=== PATIENT | female | born 1940 | race Caucasian/White ===

== ENCOUNTER 2018-09-05 09:36 | Outpatient (RCR) | payer MEDICARE, OTHER ==
[~2018-09-05 09:36] MED LIST: ALBU8.5H2 IH; AMLO10TA7 PO; AMLO10TA82 PO; AZEL137S11 NS; BENZ-36 PO; BUDE6HFA IH; CEFD300C3 PO; CEFP250T2 PO; CLIN150C2 PO; COMMODE; CYCL10TA9 PO; DEXL60CA PO; DOXY100C2 PO; FURO20TA4 PO; FURO40TA4 PO; HYDROCODONE; KCL20TCR PO; LEVO5TAB12 PO; LEVO5TAB2 PO; LISI10TA2 PO; LISI20TA PO; LOSA25TA5 PO; LSNP20T PO; METF-380 PO; METF-397 PO; METO-272 PO; MNTL10T PO; MONT10TA24 PO; MTP50T PO; NF-ESOM40C PO; NS.65NA45; NST15PW TOP; OMEP20CA12 PO; ORPH100T PO; OXYC-465 PO; OXYC10TA7 PO; PRCD5U PO; PRD10T PO; PRD20T PO; SOLI10TA2 PO; SUMA50TA2 PO; TRIAMCINOLON 0.1%
== END 2018-09-05 11:37 | disposition home or self-care (01) ==
PROVIDERS: ATTEND Nurse Practitioner Community Health
DX: S16.1XXA Strain of muscle, fascia and tendon at neck level, initial encounter (principal); V43.52XD Car driver injured in collision with other type car in traffic accident, subsequent encounter

== ENCOUNTER 2018-12-03 08:20 | Outpatient (RCR) | payer OTHER | END 2018-12-03 11:52 | disposition home or self-care (01) | PROVIDERS: ATTEND Nurse Practitioner Community Health | DX: M54.2 Cervicalgia (principal); V43.52XD Car driver injured in collision with other type car in traffic accident, subsequent encounter ==

== ENCOUNTER 2019-06-15 10:48 | Inpatient (IN) | payer MEDICARE, OTHER ==
[2019-06-15] VITALS (11 sets, daily range): BP systolic 104–141; BP diastolic 67–94
[~2019-06-15] VITALS: Ht 152 cm; Wt 156.3 kg
[2019-06-15 11:12] LABS: BASOPHILS % (AUTO) 0 % (0-10); EOSINOPHILS # (AUTO) 0.2 10^3/uL (0.0-0.3); EOSINOPHILS % (AUTO) 2 % (0-10); HEMATOCRIT 38 % (35-52); HEMOGLOBIN 12.3 G/DL (11.5-16.0); LYMPHOCYTES # (AUTO) 2.1 X 10^3 (1.0-4.0); LYMPHOCYTES % (AUTO) 25 % (12-44); MEAN CORPUSCULAR HEMOGLOBIN 32 PG (25-34); MEAN CORPUSCULAR HGB CONC 33 G/DL (32-36); MEAN CORPUSCULAR VOLUME 99 FL (80-99); MEAN PLATELET VOLUME 9.5 FL (7.4-10.4); MONOCYTES # (AUTO) 0.7 X 10^3 (0.0-1.0); MONOCYTES % (AUTO) 9 % (0-12); NEUTROPHILS # (AUTO) 5.4 X 10^3 (1.8-7.8); NEUTROPHILS % (AUTO) 64 % (42-75); PLATELET COUNT 336 10^3/uL (130-400); RED CELL DISTRIBUTION WIDTH 13.8 % (10.0-14.5); WHITE BLOOD COUNT 8.4 10^3/uL (4.3-11.0)
--- NOTE | 2019-06-15 11:13 | ED Cardiac General ---
History of Present Illness General Chief Complaint: Cardiac/General Problems Stated Complaint: RAPID HEART BEAT Source: patient Exam Limitations: no limitations History of Present Illness Date Seen by Provider: Jun 15, 2019 Time Seen by Provider: 10:55 Initial Comments The patient presents to ER by private conveyance walking in from her doctor's office Ria Mayer. She was told then that reason she was feeling weak was because her heart rate was extremely fast. She does not have a history of atrial fibrillation and denies being on blood thinners. She has no history of coronary disease and does not follow with her heart doctor. She does have chronic lymphedema and they did initiate wraps on her right lower extremity recently. She denies any wheezing or shortness of breath but she does have a history of asthma for which she uses albuterol inhaler. She's not used any today. She says she's been feeling weak for the past day. She denies a cough fever chills chest pain nausea sweats diarrhea or abdominal pain. She does not smoke cigarettes drink alcohol or use drugs. She is diabetic. Allergies and Home Medications Allergies Coded Allergies: penicillin G (Verified Allergy, Unknown, 07/08/06) Home Medications Albuterol 8.5 Gm Hfa.aer.ad, 2 PUFF IH Q6H PRN, (Reported) 2 PUFFS Amlodipine Besylate 10 Mg Tablet, 10 MG PO DAILY, (Reported) Benzonatate 100 Mg Capsule, 100 MG PO Q8H, (Reported) Budesonide/Formoterol Fumarate 1 Inhaler Aero, 1 PUFF IH BID, (Reported) Cefdinir 300 Mg Capsule, 300 MG PO DAILY, (Reported) Dexlansoprazole 60 Mg Handy.bp, 60 MG PO DAILY, (Reported) Furosemide 40 Mg Tablet, 1 EACH PO DAILY Prescribed by: CARLOS HAIDER on 09/26/13 8695 Levocetirizine Dihydrochloride 5 Mg Tablet, 5 MG PO DAILY, (Reported) Lisinopril 10 Mg Tablet, 5 MG PO DAILY, (Reported) Metformin HCl 500 Mg Tablet, 500 MG PO DAILY, (Reported) Montelukast Sodium 10 Mg Tablet, 10 MG PO DAILY, (Reported) Omeprazole 20 Mg Capsule.dr, 20 MG PO DAILY, (Reported) Orphenadrine Citrate 100 Mg Tablet.sa, 100 MG PO DAILY, (Reported) Oxycodone HCl/Acetaminophen 1 Each Tablet, 1 EACH PO Q4H, (Reported) Prednisone 10 Mg Tab, 1 TAB PO TID, (Reported) Solifenacin Succinate 10 Mg Tablet, 10 MG PO DAILY, (Reported) Sumatriptan Succinate 50 Mg Tablet, 50 MG PO DAILY, (Reported) Patient Home Medication List Home Medication List Reviewed: Yes Review of Systems Review of Systems Constitutional: No chills, No fever; malaise EENTM: No Blurred Vision, No Double Vision Respiratory: Denies Cough, Denies Shortness of Air Cardiovascular: Denies Chest Pain; Edema, Irregular Heart Rate; Denies Lightheadedness Gastrointestinal: See HPI; Denies Abdominal Pain, Denies Constipated, Denies Diarrhea, Denies Nausea Genitourinary: Denies Burning, Denies Discharge Musculoskeletal: No back pain, No joint pain All Other Systems Reviewed Negative Unless Noted: Yes Past Zjlrbwt-Hrxiwd-Cvjsog Hx Patient Social History Alcohol Use: Denies Use Recreational Drug Use: No Smoking Status: Never a Smoker Recent Hopitalizations: Yes (GB REMOVED ABCESS REMOVED FROM STOMACH) Immunizations Up To Date Date of Pneumonia Vaccine: Jul 07, 2014 Date of Influenza Vaccine: Apr 08, 2014 Seasonal Allergies Seasonal Allergies: Yes Past Medical History Surgeries: Yes (RT HAND, L TKR ) Appendectomy, Gallbladder, Orthopedic Respiratory: Yes Asthma, Pneumonia, COPD Cardiac: Yes Chronic Edema/Swelling, High Cholesterol, Hypertension Neurological: No Reproductive Disorders: No Gastrointestinal: Yes Gall Bladder Disease Musculoskeletal: Yes Arthritis Endocrine: No ("PRE-DIABETIC") Cancer: No Psychosocial: No Integumentary: Yes (LOWER LEGS/FEET) Blood Disorders: No Physical Exam Vital Signs Vital Signs - First Documented 06/15/19 06/15/19 10:55 11:42 Temp 36.5 Pulse 137 Resp 20 B/P (MAP) 143/105 (118) Pulse Ox 96 O2 Delivery Room Air O2 Flow Rate 2.00 Capillary Refill : Height, Weight, BMI Height: 5'0" Weight: 335lbs. 7.0oz. 152.370254hi; BMI Method:Stated General Appearance: No Anxious; Mild Distress, Obese HEENT: PERRL/EOMI, Pharynx Normal, Moist Mucous Membranes Neck: Full Range of Motion, Normal Inspection, Non Tender Respiratory: Lungs Clear, Normal Breath Sounds, No Accessory Muscle Use, No Respiratory Distress Cardiovascular: No Edema, Normal Peripheral Pulses, Irregularly Irregular, Tachycardia Gastrointestinal: Normal Bowel Sounds, Non Tender, Soft Extremity: Normal Capillary Refill, No Calf Tenderness, Other (chronic bilateral lower lymphedema) Neurologic/Psychiatric: Alert, Oriented x3 Progress/Results/Core Measures Results/Orders Lab Results Laboratory Tests Test 06/15/19 11:04 06/15/19 11:17 Range/Units White Blood Count 8.4 4.3-11.0 10^3/uL Red Blood Count 3.81 L 4.35-5.85 10^6/uL Hemoglobin 12.3 11.5-16.0 G/DL Hematocrit 38 35-52 % Mean Corpuscular Volume 99 80-99 FL Mean Corpuscular Hemoglobin 32 25-34 PG Mean Corpuscular Hemoglobin Concent 33 32-36 G/DL Red Cell Distribution Width 13.8 10.0-14.5 % Platelet Count 336 130-400 10^3/uL Mean Platelet Volume 9.5 7.4-10.4 FL Neutrophils (%) (Auto) 64 42-75 % Lymphocytes (%) (Auto) 25 12-44 % Monocytes (%) (Auto) 9 0-12 % Eosinophils (%) (Auto) 2 0-10 % Basophils (%) (Auto) 0 0-10 % Neutrophils # (Auto) 5.4 1.8-7.8 X 10^3 Lymphocytes # (Auto) 2.1 1.0-4.0 X 10^3 Monocytes # (Auto) 0.7 0.0-1.0 X 10^3 Eosinophils # (Auto) 0.2 0.0-0.3 10^3/uL Basophils # (Auto) 0.0 0.0-0.1 10^3/uL Sodium Level 143 135-145 MMOL/L Potassium Level 3.7 3.6-5.0 MMOL/L Chloride Level 103 98-107 MMOL/L Carbon Dioxide Level 28 21-32 MMOL/L Anion Gap 12 5-14 MMOL/L Blood Urea Nitrogen 15 7-18 MG/DL Creatinine 1.37 H 0.60-1.30 MG/DL Estimat Glomerular Filtration Rate 37 BUN/Creatinine Ratio 11 Glucose Level 116 H 70-105 MG/DL Calcium Level 9.4 8.5-10.1 MG/DL Corrected Calcium 9.2 8.5-10.1 MG/DL Total Bilirubin 0.4 0.1-1.0 MG/DL Aspartate Amino Transf (AST/SGOT) 37 H 5-34 U/L Alanine Aminotransferase (ALT/SGPT) 14 0-55 U/L Alkaline Phosphatase 121 40-136 U/L Troponin I < 0.028 <0.028 NG/ML B-Type Natriuretic Peptide 239.9 H <100.0 PG/ML Total Protein 8.4 H 6.4-8.2 GM/DL Albumin 4.2 3.2-4.5 GM/DL Urine Color YELLOW Urine Clarity CLEAR Urine pH 5.5 5-9 Urine Specific [place] 1.010 L 1.016-1.022 Urine Protein NEGATIVE NEGATIVE Urine Glucose (UA) NEGATIVE NEGATIVE Urine Ketones NEGATIVE NEGATIVE Urine Nitrite NEGATIVE NEGATIVE Urine Bilirubin NEGATIVE NEGATIVE Urine Urobilinogen 0.2 < = 1.0 MG/DL Urine Leukocyte Esterase TRACE NEGATIVE Urine RBC (Auto) NEGATIVE NEGATIVE Urine RBC NONE /HPF Urine WBC 2-5 /HPF Urine Squamous Epithelial Cells NONE /HPF Urine Crystals NONE /LPF Urine Bacteria TRACE /HPF Urine Casts NONE /LPF Urine Mucus NEGATIVE /LPF Urine Culture Indicated YES My Orders Orders - LIZETH GRADY Ekg Tracing (06/15/19 10:51) Continuous Ekg Monitoring (06/15/19 10:51) Chest 1 View, Ap/Pa Only (06/15/19 11:03) Ed Iv/Invasive Line Start (06/15/19 11:03) Catheter(Urinary) Insert & Ass 03,15 (06/15/19 11:03) Cbc With Automated Diff (06/15/19 11:03) Comprehensive Metabolic Panel (06/15/19 11:03) BNP (06/15/19 11:03) Troponin I (06/15/19 11:03) Ns (Ivpb) (Sodium C... W/Diltiazem Iv Fo (06/15/19 11:15) Diltiazem Injection (Cardizem Injection) (06/15/19 11:15) Ua Culture If Indicated (06/15/19 11:03) Urine Culture (06/15/19 11:17) Enoxaparin Injection (Lovenox Injection) (06/15/19 14:15) Medications Given in ED Current Medications Medications Dose Ordered Sig/Lavinia Route Start Time Stop Time Status Last Admin Dose Admin Diltiazem HCl 20 mg ONCE ONCE IVP 06/15/19 11:15 06/15/19 11:16 DC 06/15/19 11:39 20 MG Vital Signs/I&O 06/15/19 06/15/19 10:55 11:42 Temp 36.5 36.50086 Pulse 137 122 Resp 20 14 B/P (MAP) 143/105 (118) 150/102 Pulse Ox 96 97 O2 Delivery Room Air Nasal Cannula O2 Flow Rate 2.00 Progress Progress Note : Time: 11:10 Progress Note She has a rapid irregular heart rate consistent with atrial fibrillation with rapid ventricular response. She has a good blood pressure initially 146/96. Plan is to obtain labs to include a BNP and give her Cardizem. She's not having any wheezing or signs of asthma attack. Her oxygen sat is been in the mid 90s when we get a good waveform around 94%. Occasionally when she would exert herself she would desat down to 89% so we put her on 2 L by nasal cannula and this is kept her oxygen sats 95-98%. She does not use supplemental oxygen at baseline. Initial ECG Impression Date: Jun 15, 2019 Initial ECG Impression Time: 10:59 Initial ECG Rate: 132 Initial ECG Rhythm: A Fib/Flutter Initial ECG Intervals: QT (415) Initial ECG Impression: Atrial Fibrillation w/RVR Comment Atrial fibrillation with rapid ventricular response and no credible ST elevation or depression noted. Diagnostic Imaging Diagonstic Imaging: Xray Plain Films/CT/US/NM/MRI: chest (1 v) Comments [facility]. POS [place], [place] POS NAME: ELINOR PAIGE [facility] REC#: [id number] PT STATUS: REG ER : 1940 PHYSICIAN: LIZETH GRADY MD ADMIT DATE: 06/15/19/ER Draft POSDate of Exam:06/15/19 CHEST 1 VIEW, AP/PA ONLY INDICATION: Tachycardia, palpitations, fatigue and fluid retention. Study compared to 10/01/2014. The heart is enlarged. There is mild vascular congestion but no pulmonary edema, pleural fluid or focal pneumonia. IMPRESSION: No real change in magnitude of cardiomegaly and vascular congestion. No pleural fluid or jose edema. Dictated on workstation # [id number] Dict: 06/15/19 1142 Trans: 06/15/19 1145 [facility] [id number] Interpreted by: JOAO NEWMAN Electronically signed by: Reviewed: Reviewed by Me Departure Communication (Admissions) Time/Spoke to Admitting Phy: 14:27 Discussed case lab imaging findings with Dr. Woo and she agrees to observe the patient. Time/Spoke to Consulting Phy: 14:00 Discussed case lab imaging findings EKG with Dr. Moran [facility]. Impression Primary Impression: Atrial fibrillation with rapid ventricular response Disposition: ADMITTED INPATIENT Condition: Critical Admissions Decision to Admit Reason: Admit from ER (General) Decision to Admit/Date: Jun 15, 2019 Time/Decision to Admit Time: 14:00 Departure-Patient Inst. Referrals: RIA MAYER (PCP) Primary Care Physician [facility] (Family) Primary Care Physician LIZETH GRADY Jun 15, 2019 11:13 POS
[2019-06-15] MEDS ORDERED: DILTIAZEM IV FOR DRIP 125 MG in NS (IVPB) 100 ML IV SCH (11:15)
[2019-06-15] MEDS ORDERED: DILTIAZEM 25 MG/5 ML INJ (CARDIZEM) VIAL IVP ONE (11:15)
[2019-06-15 11:24] LABS: CLARITY,URINE CLEAR; COLOR,URINE YELLOW; PH,URINE 5.5 (5-9)
[2019-06-15 11:25] LABS: BILIRUBIN,URINE NEGATIVE (NEGATIVE); GLUCOSE, URINE (UA) NEGATIVE (NEGATIVE); KETONES,URINE NEGATIVE (NEGATIVE); LEUKOCYTE ESTERASE ,URINE TRACE (NEGATIVE); NITRITE,URINE NEGATIVE (NEGATIVE); PROTEIN,URINE NEGATIVE (NEGATIVE)
[2019-06-15 11:32] LABS: BACTERIA,URINE TRACE /HPF
[2019-06-15 11:36] LABS: ALANINE AMINOTRANSFERASE 14 U/L (0-55); ALBUMIN 4.2 GM/DL (3.2-4.5); ALKALINE PHOSPHATASE 121 U/L (40-136); BILIRUBIN,TOTAL 0.4 MG/DL (0.1-1.0); BUN/CREATININE RATIO 11; CALCIUM 9.4 MG/DL (8.5-10.1); CARBON DIOXIDE 28 MMOL/L (21-32); CHLORIDE 103 MMOL/L (98-107); CREATININE SERUM 1.37 MG/DL (0.60-1.30); GFR ESTIMATED 37; GLUCOSE 116 MG/DL (70-105); POTASSIUM 3.7 MMOL/L (3.6-5.0); SODIUM 143 MMOL/L (135-145); TOTAL PROTEIN 8.4 GM/DL (6.4-8.2)
--- NOTE | 2019-06-15 11:45 | Diagnostic Imaging Report ---
INDICATION: Tachycardia, palpitations, fatigue and fluid retention. Study compared to 10/01/2014. The heart is enlarged. There is mild vascular congestion but no pulmonary edema, pleural fluid or focal pneumonia. IMPRESSION: No real change in magnitude of cardiomegaly and vascular congestion. No pleural fluid or jose edema. Dictated by: Dictated on workstation # [id number]
[2019-06-15] MEDS ORDERED: ENOXAPARIN 80 MG/0.8 ML (LOVENOX) SYR SC ONE (14:15)
--- NOTE | 2019-06-15 15:17 | History & Physical-Hospitalist ---
JANEY LOPEZ,MED STUDENT 06/15/19 1517: History of Present Illness HPI/Chief Complaint Pt presented to [facility] ER after [facility] clinic referred her due to tachycardia and weakness. EKG in ED revealed atrial fibrillation with rapid ventricular response. She denies history of chest pain, dyspnea on exertion, palpitations, syncope, orthostatic hypotension, or history of cardiac problems including atrial fibrillation or cardiac intervention. However, this is questionable as pt quickly experienced oxygen desaturation during interview and in addition takes amlodipine, lisinopril/HTCZ, and lasix. Pt is questionable historian. She endorses LE edema, but has longstanding b/l lymphedema. Source: patient Exam Limitations: no limitations Date Seen 06/15/19 Time Seen by a Provider: 14:46 Attending Physician Ilene Mckeon DO PCP Ria Ruiz Referring Physician Date of Admission Jun 15, 2019 at 14:30 Home Medications & Allergies Home Medications Reviewed patient Home Medication Reconciliation performed by pharmacy medication reconciliations library media technician and/or nursing. Patients Allergies have been reviewed. Allergies Allergies Coded Allergies penicillin G (Verified Allergy, Unknown, 07/08/06) Past Zlzjlha-Vavcdb-Tqyyef Hx Patient Social History Alcohol Use: Denies Use Recreational Drug Use: No Smoking Status: Never a Smoker Recent Foreign Travel: No Contact w/other who traveled: No Recent Hopitalizations: Yes (GB REMOVED ABCESS REMOVED FROM STOMACH) Recent Infectious Disease Expo: No Immunizations Up To Date Date of Pneumonia Vaccine: Jul 07, 2014 Date of Influenza Vaccine: Apr 08, 2014 Seasonal Allergies Seasonal Allergies: Yes Past Medical History Surgeries: Appendectomy, Gallbladder, Orthopedic Cardiac: Chronic Edema/Swelling, High Cholesterol, Hypertension Reproductive: No Gastrointestinal: Gall Bladder Disease Musculoskeletal: Arthritis Endocrine: Diabetes, Non-Insulin dep History of Blood Disorders: No Family History Cancer (grandmother ), Diabetes (grandmother), Hypertension (grandmother) Review of Systems Constitutional: No chills, No fever, No malaise EENTM: No ear pain, No eye pain Respiratory: No cough, No dyspnea on exertion, No hemoptysis, No short of breath Cardiovascular: see HPI; No chest pain, No Hx of Intervention, No palpitations, No syncope Gastrointestinal: No abdominal pain; constipation; No diarrhea, No hematemesis, No melena, No nausea, No vomiting Genitourinary: frequency (on lasix ); No incontinence Musculoskeletal: back pain, joint pain Skin: No lesions, No lumps, No rash Physical Exam Physical Exam Vital Signs Vital Signs - First Documented 06/15/19 06/15/19 10:55 11:42 Temp 36.5 Pulse 137 Resp 20 B/P (MAP) 143/105 (118) Pulse Ox 96 O2 Delivery Room Air O2 Flow Rate 2.00 Capillary Refill : Less Than 3 Seconds Height, Weight, BMI Height: 5'0" Weight: 335lbs. 7.0oz. 152.688352ye; 69.00 BMI Method:Stated General Appearance: No Apparent Distress, Obese HEENT: PERRL/EOMI, Pharynx Normal Neck: Non Tender, Supple Respiratory: Chest Non Tender, Lungs Clear, Normal Breath Sounds, No Accessory Muscle Use, No Respiratory Distress Cardiovascular: No Gallop, No Murmur, Normal Peripheral Pulses, Irregularly Irregular Extremity: Pedal Edema, Swelling (b/l LE swelling secondary to lymphedema ) Neurologic/Psychiatric: Alert, Oriented x3, Normal Mood/Affect Skin: Damp, Pallor, Rash (b/l LE scaling ) Lymphatic: No Adenopathy (cervical, supra/infraclavicular ) Results Results/Procedures Labs Laboratory Tests 06/15/19 11:04 Patient resulted labs reviewed. Imaging: Reviewed Imaging Films, Reviewed Imaging Report Imaging CHEST 1 VIEW, AP/PA ONLY INDICATION: Tachycardia, palpitations, fatigue and fluid retention. Study compared to 10/01/2014. The heart is enlarged. There is mild vascular congestion but no pulmonary edema, pleural fluid or focal pneumonia. IMPRESSION: No real change in magnitude of cardiomegaly and vascular congestion. No pleural fluid or jose edema. Assessment/Plan Admission Diagnosis Atrial fibrillation with rapid ventricular response Admission Status: Observation Assessment and Plan Afib with RVR Lymphedema Cardiomegaly Non-Insulin dependent Diabetes mellitus Heart failure Admit to ICU for telemetry Continue IVF, diltiazem Continue home meds, including amlodipine, lisinopril, lasix Consult cardiology regarding Afib w/ RVR Pt meets [place] diagnostic criteria for HF (cardiomegaly plus ankle edema and tachycardia) Troponin negative recommend performing echocardiogram ILENE MCKEON DO 06/16/191955: History of Present Illness HPI/Chief Complaint Chief complaint: A-FIB with RVR HPI: This is a 78yoWF who has a PMH of morbid obesity who presented with A-FIB with RVR, Pt required ICU cardiac step-down admission for rate control, cardiology consultation. Pt remains in A-FIB. Pt may require cardioversion. Past Qptskpf-Lvfyws-Hwbcjx Hx Past Med/Social Hx: Reviewed Nursing Past Med/Soc Hx, Reviewed and Corrections made Review of Systems Constitutional: see HPI, weakness Physical Exam Physical Exam General Appearance: No Apparent Distress, Obese Eyes: Right Eye Normal Inspection, Right Eye PERRL HEENT: PERRL/EOMI, Normal ENT Inspection, Pharynx Normal, Moist Mucous Membranes Neck: Full Range of Motion, Normal Inspection, Non Tender Respiratory: Chest Non Tender, Lungs Clear, Normal Breath Sounds, No Accessory Muscle Use, No Respiratory Distress Cardiovascular: No Edema, No Gallop, No JVD, No Murmur, Normal Peripheral Pulses, Irregularly Irregular Gastrointestinal: Normal Bowel Sounds, No Organomegaly, No Pulsatile Mass, Non Tender, Soft Back: Normal Inspection, No CVA Tenderness, No Vertebral Tenderness Extremity: Normal Capillary Refill, Normal Inspection, Normal Range of Motion, Non Tender, No Calf Tenderness, No Pedal Edema Neurologic/Psychiatric: Alert, Oriented x3, No Motor/Sensory Deficits, Normal Mood/Affect Skin: Normal Color, Warm/Dry Lymphatic: No Adenopathy Assessment/Plan Admission Diagnosis Assessment: New onset AF w/RVR OHA Plan: Cardiology appreciated Dr Andres appreciated Admission Status: Inpatient Order (span 2 midnights) Reason for Inpatient Admission: AF w/RVR in need of cardioversion Diagnosis/Problems Diagnosis/Problems (1) Atrial fibrillation with rapid ventricular response Status: Acute (2) Body mass index 30+ - obesity Onset Date: 09/29/2013 Status: Acute Supervisory-Addendum Brief Verification & Attestation Participated in pt care: history, MDM, physical Personally performed: exam, history, MDM, supervision of care Care discussed with: Medical Student Procedures: n/a Results interpretation: Verified all documentation Verification and Attestation of Medical Student E/M Service A medical student performed and documented this service in my presence. I reviewed and verified all information documented by the medical student and made modifications to such information, when appropriate. I personally performed the physical exam and medical decision making. Ilene Mckeon, Jun 16, 2019,19:56 JANEY LOPEZ,MED STUDENT Jun 15, 2019 15:17 ILENE SHERMAN DO Jun 16, 2019 19:56 POS
[2019-06-15] MEDS ORDERED: ONDANSETRON 4 MG/2 ML (SDV) Z0FRAN IV PRN (15:45)
[2019-06-15] MEDS ORDERED: CATHETER FLUSH 10 ML SYR IV PRN (15:45)
[2019-06-15] MEDS ORDERED: ACETAMINOPHEN 500 MG TAB (TYLENOL) PO PRN (15:45)
[2019-06-15] MEDS ORDERED: FURO40TA4 PO (15:55)
[2019-06-15] MEDS ORDERED: DESV25TA2 PO (15:55)
[2019-06-15] MEDS ORDERED: METF500T8 PO (15:55)
[2019-06-15] MEDS ORDERED: CYCL10TA9 PO (15:55)
[2019-06-15] MEDS ORDERED: ACET-2267 PO (16:04)
[2019-06-15] MEDS ORDERED: BUDE10.2 IH (16:04)
[2019-06-15] MEDS ORDERED: RT-ALBUINH INH (16:04)
[2019-06-15] MEDS ORDERED: FLUT9.9S NS (16:07)
--- NOTE | 2019-06-15 16:08 | NUR ---
SPOKE WITH THE PATIENT ABOUT HER MEDICATIONS. I CALLED [facility] FOR A LIST OF RECENTLY FILLED MEDICATIONS AND WENT OVER IT WITH THE PATIENT. SHE VERIFIED HOW SHE TAKES EACH MED. [facility] FILLED: 06-01-19 LASIX 40MG DAILY (STATES SHE DOES NOT TAKE IF LEAVING THE HOUSE) 05-29-19 PRISTIQ 25MG DAILY #30 (THIS WAS DISCONTINUED AT HER VISIT TODAY) 05-27-19 OXYCODONE 10-325MG TID #84 (TAKES SCHEDULED) 05-26-19 FLEXERIL 10MG TID #20 (TAKES PRN) 05-26-19 DEXILANT 60MG DAILY #90 (TAKES AT HS) 04-24-19 SINGULAIR 10MG HS #90 04-21-19 LEVOCETIRIZINE 5MG HS #90 03-10-19 METFORMIN ER 500MG HS #90 02-02-19 AMLODIPINE 10MG HS #90 11-04-18 VENTOLIN (PRN) 11-04-18 (SYMBICORT 160 (TAKES PRN) OTC MEDS: FLONASE PRN TYLENOL PRN
[2019-06-15] MEDS: inSUlin ASPART (NovoLOG) 1 UNIT/0.01 ML (CHARGE PER UNIT) SC SCH ×2 (17:37→20:41)
[2019-06-15] MEDS: DILTIAZEM 125 MG/NS 100 ML IV SCH ×2 (17:37)
[2019-06-15] MEDS ORDERED: NON-FORMULARY MEDICATION 1 EA EA (Fluticasone Propionate (Flonase Allergy Relief) 2 SPRAY) NS PRN (20:00)
[2019-06-15] MEDS ORDERED: NON-FORMULARY MEDICATION 1 EA EA (Budesonide/Formoterol Fumarate (Symbicort 160-4.5 Mcg In IH PRN (20:00)
[2019-06-15] MEDS ORDERED: CYCLOBENZAPRINE 10 MG (FLEXERIL) TAB PO PRN (20:00)
[2019-06-15] MEDS ORDERED: FLUTICASONE NASAL SPRAY (FLONASE) 16 GM BTL NS PRN (20:15)
[2019-06-15] MEDS ORDERED: RT-ADVAIR HFA 115/21 MCG PER PUFF IH PRN (20:15)
[2019-06-15] MEDS: metFORMIN XR 500 MG (GLUCOPHAGE XR) TAB PO SCH (20:31)
[2019-06-15] MEDS: LORATADINE (CLARITIN) 10 MG TAB PO SCH (20:32)
[2019-06-15] MEDS: PANTOPRAZOLE 40 MG (PROTONIX) TAB PO SCH (20:32)
[2019-06-15] MEDS: oxyCODONE/APAP 10/325MG (PERCOCET 10) TABLET PO SCH (20:32)
[2019-06-15] MEDS: CATHETER FLUSH 10 ML SYR IV SCH (20:32)
[2019-06-15] MEDS: amLODIPine 10 MG (NORVASC) TAB PO SCH (20:32)
[2019-06-15] MEDS: MONTELUKAST 10 MG (SINGULAIR) TAB PO SCH (20:32)
[2019-06-15] MEDS ORDERED: LEVOCETIRIZINE 5 MG TAB (XYZAL) NON-FORMULARY PO SCH (21:00)
[2019-06-15] MEDS ORDERED: NON-FORMULARY MEDICATION 1 EA EA (Dexlansoprazole (Dexilant) 60 MG) PO SCH (21:00)
[2019-06-15] MEDS ORDERED: NON-FORMULARY MEDICATION 1 EA EA (Amlodipine Besylate 10 MG) PO SCH (21:00)
[2019-06-16] VITALS (24 sets, daily range): BP systolic 96–139; BP diastolic 57–90
[2019-06-16 03:56] LABS: BASOPHILS % (AUTO) 0 % (0-10); EOSINOPHILS # (AUTO) 0.2 10^3/uL (0.0-0.3); EOSINOPHILS % (AUTO) 3 % (0-10); HEMATOCRIT 36 % (35-52); HEMOGLOBIN 11.5 G/DL (11.5-16.0); LYMPHOCYTES # (AUTO) 1.9 X 10^3 (1.0-4.0); LYMPHOCYTES % (AUTO) 38 % (12-44); MEAN CORPUSCULAR HEMOGLOBIN 32 PG (25-34); MEAN CORPUSCULAR HGB CONC 32 G/DL (32-36); MEAN CORPUSCULAR VOLUME 101 FL (80-99); MEAN PLATELET VOLUME 10.4 FL (7.4-10.4); MONOCYTES # (AUTO) 0.5 X 10^3 (0.0-1.0); MONOCYTES % (AUTO) 10 % (0-12); NEUTROPHILS # (AUTO) 2.5 X 10^3 (1.8-7.8); NEUTROPHILS % (AUTO) 49 % (42-75); PLATELET COUNT 234 10^3/uL (130-400); RED CELL DISTRIBUTION WIDTH 13.4 % (10.0-14.5); WHITE BLOOD COUNT 5.1 10^3/uL (4.3-11.0)
[2019-06-16] MEDS: MAGNESIUM 1 GM/100 ML IVPB 100 ML IV SCH (04:20)
[2019-06-16] MEDS: POTASSIUM CL 10MEQ/50ML IVPB 50 ML IV SCH (04:20)
[2019-06-16] MEDS: KCL 20 MEQ TAB (K-DUR) PO SCH (04:20)
[2019-06-16] MEDS: inSUlin ASPART (NovoLOG) 1 UNIT/0.01 ML (CHARGE PER UNIT) SC SCH ×4 (04:20→20:22)
[2019-06-16] MEDS: CATHETER FLUSH 10 ML SYR IV SCH ×3 (04:20→20:29)
[2019-06-16 04:38] LABS: ALBUMIN 3.5 GM/DL (3.2-4.5); BILIRUBIN,TOTAL 0.5 MG/DL (0.1-1.0); CALCIUM 8.8 MG/DL (8.5-10.1); CREATININE SERUM 1.15 MG/DL (0.60-1.30); MAGNESIUM 1.7 MG/DL (1.6-2.4); PHOSPHORUS 3.7 MG/DL (2.3-4.7); POTASSIUM 3.9 MMOL/L (3.6-5.0)
[2019-06-16] MEDS ORDERED: MAGNESIUM 1 GM/100 ML IVPB 100 ML IV SCH (04:45)
--- NOTE | 2019-06-16 06:59 | Consultation-Cardiology ---
HPI-Cardiology Cardiology Consultation Date of Consultation 06/16/19 Date of Admission Time Seen by Provider: 06:55 Indication: Atrial fibrillation HPI 78-year-old lady with history of hypertension, obesity and diabetes. Has been feeling her heart rate tracing, sent from [facility] for admission and noted to be in atrial fibrillation with rapid ventricular response. She admits feeling tired, having increasing dyspnea on exertion and fatigue with loss of energy. No chest pain. No syncope or near syncopal episode, had mild pedal edema. Home Medications & Allergies Allergies: Coded Allergies: penicillin G (Verified Allergy, Unknown, 07/08/06) Home Medication List Reviewed: Yes YGX-Hjffsa-Ldortx Hx Patient Social History Alcohol Use: Denies Use Recreational Drug Use: No Smoking Status: Never a Smoker Recent Foreign Travel: No Recent Infectious Disease Expo: No Recent Hopitalizations: Yes (GB REMOVED ABCESS REMOVED FROM STOMACH) Immunizations Up To Date Date of Pneumonia Vaccine: Jul 07, 2014 Date of Influenza Vaccine: May 27, 2019 Past Medical History Discussed below Family Medical History Significant Family History: Cancer (grandmother ), Diabetes (grandmother), Hy pertension (grandmother) Family Medical Hx Noncontributory Review of Systems-General Review of Systems Constitutional: No chills, No fever, No malaise; weakness EENTM: see HPI; No ear pain, No eye pain Respiratory: see HPI; No cough; dyspnea on exertion; No hemoptysis, No short of breath Cardiovascular: see HPI; No chest pain; edema; No Hx of Intervention, No palpitations, No syncope Gastrointestinal: no symptoms reported, see HPI; No abdominal pain; constipation; No diarrhea, No hematemesis, No melena, No nausea, No vomiting Genitourinary: see HPI, frequency (on lasix ); No incontinence Musculoskeletal: see HPI, back pain, joint pain Skin: see HPI; No lesions, No lumps, No rash Psychiatric/Neurological: No Symptoms Reported, See HPI All Other Systems Reviewed Negative Unless Noted: Yes Reviewed Test Results Reviewed Test Results Lab Laboratory Tests Test 06/15/19 11:04 06/15/19 11:17 06/16/19 03:20 Range/Units White Blood Count 8.4 5.1 4.3-11.0 10^3/uL Red Blood Count 3.81 L 3.56 L 4.35-5.85 10^6/uL Hemoglobin 12.3 11.5 11.5-16.0 G/DL Hematocrit 38 36 35-52 % Mean Corpuscular Volume 99 101 H 80-99 FL Mean Corpuscular Hemoglobin 32 32 25-34 PG Mean Corpuscular Hemoglobin Concent 33 32 32-36 G/DL Red Cell Distribution Width 13.8 13.4 10.0-14.5 % Platelet Count 336 234 130-400 10^3/uL Mean Platelet Volume 9.5 10.4 7.4-10.4 FL Neutrophils (%) (Auto) 64 49 42-75 % Lymphocytes (%) (Auto) 25 38 12-44 % Monocytes (%) (Auto) 9 10 0-12 % Eosinophils (%) (Auto) 2 3 0-10 % Basophils (%) (Auto) 0 0 0-10 % Neutrophils # (Auto) 5.4 2.5 1.8-7.8 X 10^3 Lymphocytes # (Auto) 2.1 1.9 1.0-4.0 X 10^3 Monocytes # (Auto) 0.7 0.5 0.0-1.0 X 10^3 Eosinophils # (Auto) 0.2 0.2 0.0-0.3 10^3/uL Basophils # (Auto) 0.0 0.0 0.0-0.1 10^3/uL Sodium Level 143 142 135-145 MMOL/L Potassium Level 3.7 3.9 3.6-5.0 MMOL/L Chloride Level 103 104 98-107 MMOL/L Carbon Dioxide Level 28 25 21-32 MMOL/L Anion Gap 12 13 5-14 MMOL/L Blood Urea Nitrogen 15 15 7-18 MG/DL Creatinine 1.37 H 1.15 0.60-1.30 MG/DL Estimat Glomerular Filtration Rate 37 46 BUN/Creatinine Ratio 11 13 Glucose Level 116 H 107 H 70-105 MG/DL Calcium Level 9.4 8.8 8.5-10.1 MG/DL Corrected Calcium 9.2 9.2 8.5-10.1 MG/DL Total Bilirubin 0.4 0.5 0.1-1.0 MG/DL Aspartate Amino Transf (AST/SGOT) 37 H 45 H 5-34 U/L Alanine Aminotransferase (ALT/SGPT) 14 16 0-55 U/L Alkaline Phosphatase 121 103 40-136 U/L Troponin I < 0.028 <0.028 NG/ML B-Type Natriuretic Peptide 239.9 H <100.0 PG/ML Total Protein 8.4 H 7.0 6.4-8.2 GM/DL Albumin 4.2 3.5 3.2-4.5 GM/DL Urine Color YELLOW Urine Clarity CLEAR Urine pH 5.5 5-9 Urine Specific [place] 1.010 L 1.016-1.022 Urine Protein NEGATIVE NEGATIVE Urine Glucose (UA) NEGATIVE NEGATIVE Urine Ketones NEGATIVE NEGATIVE Urine Nitrite NEGATIVE NEGATIVE Urine Bilirubin NEGATIVE NEGATIVE Urine Urobilinogen 0.2 < = 1.0 MG/DL Urine Leukocyte Esterase TRACE NEGATIVE Urine RBC (Auto) NEGATIVE NEGATIVE Urine RBC NONE /HPF Urine WBC 2-5 /HPF Urine Squamous Epithelial Cells NONE /HPF Urine Crystals NONE /LPF Urine Bacteria TRACE /HPF Urine Casts NONE /LPF Urine Mucus NEGATIVE /LPF Urine Culture Indicated YES Phosphorus Level 3.7 2.3-4.7 MG/DL Magnesium Level 1.7 1.6-2.4 MG/DL Physical Exam Physical Exam Vital Signs Vital Signs - First Documented 06/15/19 06/15/19 10:55 11:42 Temp 36.5 Pulse 137 Resp 20 B/P (MAP) 143/105 (118) Pulse Ox 96 O2 Delivery Room Air O2 Flow Rate 2.00 Capillary Refill : Less Than 3 Seconds Height, Weight, BMI Height: 5'0" Weight: 335lbs. 7.0oz. 152.926785nt; 69.00 BMI Method:Stated General Appearance: No Apparent Distress, Obese Eyes: Bilateral Eye Normal Inspection, Bilateral Eye PERRL, Bilateral Eye EOMI HEENT: PERRL/EOMI, Pharynx Normal Neck: Non Tender, Supple Respiratory: Chest Non Tender, Lungs Clear, Normal Breath Sounds, No Accessory Muscle Use, No Respiratory Distress Cardiovascular: No Gallop, No Murmur, Normal Peripheral Pulses, Irregularly Irregular Gastrointestinal: Normal Bowel Sounds, Non Tender, Soft Back: Normal Inspection, No CVA Tenderness, No Vertebral Tenderness Extremity: Pedal Edema, Swelling (b/l LE swelling secondary to lymphedema ) Neurologic/Psychiatric: Alert, Oriented x3, Normal Mood/Affect Skin: Damp, Pallor, Rash (b/l LE scaling ) Lymphatic: No Adenopathy (cervical, supra/infraclavicular ) A/P-Cardiology Admission Diagnosis Atrial fibrillation Palpitation Dyspnea Peripheral edema Hypertension Assessment/Plan Atrial fibrillation of unknown duration, heart rate is better controlled on Cardizem drip, did not convert overnight to sinus, maintained on Lovenox, I will continue on Lovenox evaluate echocardiogram and planning to do KATHERINE and electrical cardioversion in the morning. Palpitation and shortness of breath probably due to underlying atrial fibrillation, continue to monitor Hypertension, monitor blood pressure, has been on amlodipine as an outpatient. Currently on Cardizem drip Peripheral edema, maintained on Lasix as an outpatient, planning to evaluate 2-D echo. Monitor closely Diabetes mellitus, maintained on metformin, on hold for now Obesity, BMI 16 9, we discussed weight loss High risk for obstructive sleep apnea/COPD. I will consult Dr. Andres Clinical Quality Measures DVT/VTE Risk/Contraindication: Risk Factor Score Per Nursin RFS Level Per Nursing on Admit: 4+=Very High ANTONIETTA ROGER MD Jun 16, 2019 06:59 POS
[2019-06-16] MEDS ORDERED: ENOXAPARIN 300 MG/3 ML (LOVENOX) MULTI-DOSE VIAL SQ SCH (08:00)
--- NOTE | 2019-06-16 08:09 | Pulmonary Consultation ---
History of Present Illness History of Present Illness Date of Consultation 06/16/19 07:39 Time Seen by Provider: 07:39 Date of Admission Reason for Visit: Atrial fibrillation History of Present Illness 78yo with hx of Morbid obesity, DM, HTN presented to ED from [facility] secondary to palpitations progressive SOB luis with exertion, and weakness. she was found to have Afib RVR while in the ED. Dr. Moran is consulting me for pulmonary management. Allergies and Home Medications Allergies Coded Allergies: penicillin G (Verified Allergy, Unknown, 07/08/06) Home Medications Acetaminophen 500 Mg Tablet, 500-1,000 MG PO Q4H PRN for PAIN-MILD (1-4), (Reported) Albuterol Sulfate 1 Puff Puff, 2 PUFF INH Q4H PRN for SHORTNESS OF BREATH, (Reported) 1 PUFF = 90 MCG Amlodipine Besylate 10 Mg Tablet, 10 MG PO HS, (Reported) LAST FILLED #90 02-02-19 Budesonide/Formoterol Fumarate 10.2 Gm Hfa.aer.ad, 2 PUFF IH BID PRN for SHORTNESS OF BREATH, (Reported) LAST FILLED 11-04-18 Cyclobenzaprine HCl 10 Mg Tablet, 10 MG PO TID PRN for MUSCLE SPASMS, (Reported) Dexlansoprazole 60 Mg Handy.bp, 60 MG PO HS, (Reported) Fluticasone Propionate 9.9 Ml [place].susp, 2 SPRAY NS DAILY PRN for ALLERGIES, (Reported) Furosemide 40 Mg Tablet, 40 MG PO DAILY, (Reported) Levocetirizine Dihydrochloride 5 Mg Tablet, 5 MG PO HS, (Reported) Metformin HCl 500 Mg Tab.er.24h, 500 MG PO HS, (Reported) Montelukast Sodium 10 Mg Tablet, 10 MG PO HS, (Reported) Oxycodone HCl/Acetaminophen 1 Each Tablet, 1 TAB PO TID, (Reported) Past Gzqopsd-Scieyo-Figmla Hx Patient Social History Alcohol Use: Denies Use Recreational Drug Use: No Smoking Status: Never a Smoker Recent Foreign Travel: No Contact w/Someone Who Travel: No Recent Infectious Disease Expo: No Recent Hopitalizations: Yes (GB REMOVED ABCESS REMOVED FROM STOMACH) Physical Abuse: No Sexual Abuse: No Mistreated: No Fear: No Immunizations Up To Date Date of Pneumonia Vaccine: Jul 07, 2014 Date of Influenza Vaccine: May 27, 2019 Seasonal Allergies Seasonal Allergies: Yes Past Medical History Surgeries: Yes (RT HAND, L TKR ) Appendectomy, Gallbladder, Orthopedic Respiratory: Yes Asthma, Pneumonia, COPD Cardiac: Yes Chronic Edema/Swelling, High Cholesterol, Hypertension Neurological: No : No Reproductive Disorders: No Gastrointestinal: Yes Gall Bladder Disease Musculoskeletal: Yes Arthritis Endocrine: No ("PRE-DIABETIC") Diabetes, Non-Insulin dep Cancer: No Psychosocial: No Integumentary: Yes (LOWER LEGS/FEET) Blood Disorders: No Family Medical History Cancer (grandmother ), Diabetes (grandmother), Hypertension (grandmother) Sepsis Event Evaluation Height, Weight, BMI Height: 5'0" Weight: 335lbs. 7.0oz. 152.892127ji; 69.00 BMI Method:Stated Exam Exam Vital Signs Date Time Temp Pulse Resp B/P (MAP) Pulse Ox O2 Delivery O2 Flow Rate FiO2 06/16/19 07:08 Nasal Cannula 2.00 06/16/19 06:00 79 116/82 (93) 93 Nasal Cannula 2.00 06/16/19 05:00 78 28 139/84 (102) 96 Nasal Cannula 2.00 06/16/19 04:00 79 31 129/87 (101) 98 Nasal Cannula 2.00 06/16/19 03:40 97 Nasal Cannula 2.00 06/16/19 03:00 87 27 119/86 (97) 94 Nasal Cannula 2.00 06/16/19 02:00 84 27 130/84 (99) 96 Nasal Cannula 2.00 06/16/19 01:00 80 06/16/19 01:00 80 110/71 (84) 93 Nasal Cannula 2.00 06/16/19 00:00 82 135/78 (97) 96 Nasal Cannula 2.00 06/15/19 23:45 36.8 Nasal Cannula 2.00 06/15/19 23:40 95 Nasal Cannula 2.00 06/15/19 23:00 93 19 118/67 (84) 92 Nasal Cannula 2.00 06/15/19 22:00 103 34 131/78 (95) 93 Nasal Cannula 2.00 06/15/19 21:00 98 127/82 (97) 91 Nasal Cannula 2.00 06/15/19 20:00 84 10 139/81 (100) 100 Nasal Cannula 2.00 06/15/19 19:45 93 14 138/77 (97) Nasal Cannula 2.00 06/15/19 19:45 96 Nasal Cannula 2.00 06/15/19 19:30 89 122/91 (101) 96 Nasal Cannula 2.00 06/15/19 19:25 37.0 06/15/19 19:15 81 31 130/87 (101) 91 Nasal Cannula 2.00 06/15/19 19:00 94 06/15/19 19:00 94 134/94 (107) 97 Nasal Cannula 2.00 06/15/19 18:00 106 14 141/86 (104) 94 Nasal Cannula 2.00 06/15/19 17:00 108 20 123/74 (90) 87 Nasal Cannula 2.00 06/15/19 16:07 100 06/15/19 16:00 94 10 104/84 (91) 100 Nasal Cannula 2.00 06/15/19 15:32 101 16 129/76 99 06/15/19 15:26 99 Nasal Cannula 2.00 06/15/19 11:42 36.75515 122 14 150/102 97 Nasal Cannula 2.00 06/15/19 10:55 36.5 137 20 143/105 (118) 96 Room Air I & O 06/16/19 07:00 Intake Total 1625 ml Output Total 2725 ml Balance -1100 ml Height & Weight Height: 5'0" Weight: 335lbs. 7.0oz. 152.041524bo; 69.00 BMI Method:Stated General Appearance: No Apparent Distress, Obese HEENT: PERRL/EOMI, Pharynx Normal Neck: Non Tender, Supple Respiratory: Chest Non Tender, Lungs Clear, Normal Breath Sounds, No Accessory Muscle Use, No Respiratory Distress Cardiovascular: No Gallop, No Murmur, Normal Peripheral Pulses, Irregularly Irregular Capillary Refill: Less Than 3 Seconds Extremity: Pedal Edema, Swelling (b/l LE swelling secondary to lymphedema ) Neurologic/Psychiatric: Alert, Oriented x3, Normal Mood/Affect Skin: Damp, Pallor, Rash (b/l LE scaling ) Lymphatic: No Adenopathy (cervical, supra/infraclavicular ) Results Lab Laboratory Tests 06/15/19 11:04 06/16/19 03:20 Assessment/Plan Assessment/Plan Afib rvr -Cardizem gtt -Cardiolgy following Hypoxia with worsening SOB -Check ABG Morbid obesity r/o OHS SHARON JOSEPH DO Jun 16, 2019 08:09 POS
--- NOTE | 2019-06-16 08:15 | Diagnostic Imaging Report ---
INDICATION: Dyspnea. COMPARISON: 06/15/2019. FINDINGS: Heart is enlarged. There is no acute infiltrate. No convincing evidence for pulmonary edema or pleural fluid. There has been no change. IMPRESSION: Stable cardiomegaly, otherwise negative. Dictated by: Dictated on workstation # [id number]
[2019-06-16] MEDS: FUROSEMIDE 40 MG (LASIX) TAB PO SCH (09:03)
[2019-06-16] MEDS: APIXABAN 5 MG (ELIQUIS) TABLET PO SCH ×2 (09:03→20:28)
[2019-06-16] MEDS: oxyCODONE/APAP 10/325MG (PERCOCET 10) TABLET PO SCH ×3 (09:03→20:29)
[2019-06-16] MEDS: DILTIAZEM 125 MG/NS 100 ML IV SCH ×2 (09:17)
--- NOTE | 2019-06-16 10:46 | Progress Note - Hospitalist ---
JANEY LOPEZ,MED STUDENT 06/16/19 1046: Subjective HPI/CC On Admission Date Seen by Provider: Jun 16, 2019 Time Seen by Provider: 09:06 Pt presented to [facility] ER after [facility] clinic referred her due to tachycardia and weakness. EKG in ED revealed atrial fibrillation with rapid ventricular response. She denies history of chest pain, dyspnea on exertion, palpitations, syncope, orthostatic hypotension, or history of cardiac problems including atrial fibrillation or cardiac intervention. However, this is questionable as pt quickly experienced oxygen desaturation during interview and in addition takes amlodipine, lisinopril/HTCZ, and lasix. Pt is questionable historian. She endorses LE edema, but has longstanding b/l lymphedema. Subjective/Events-last exam Pt feeling well today, requesting to go home as soon as possible. Denies any chest pain or palpitations today, does admit shortness of breath if she begins talking to much. Sating well while on NC. Has no complaints today. Accompanied by daughter in room. Objective Exam Vital Signs Vital Signs Date Time Temp Pulse Resp B/P (MAP) Pulse Ox O2 Delivery O2 Flow Rate FiO2 06/16/19 10:00 96 101/90 (94) 97 Nasal Cannula 2.00 06/16/19 08:00 14 06/15/19 23:45 36.8 Capillary Refill : Less Than 3 Seconds General Appearance: No Apparent Distress, Obese HEENT: PERRL/EOMI, Pharynx Normal, Moist Mucous Membranes Neck: Non Tender, Supple Respiratory: Chest Non Tender, Lungs Clear, No Accessory Muscle Use, No Respiratory Distress, Accessory Muscle Use, Decreased Breath Sounds, Other (NC in place (2L) ) Cardiovascular: No Gallop, No Murmur, Normal Peripheral Pulses, Irregularly Irregular, Tachycardia Extremity: Pedal Edema, Swelling Neurologic/Psychiatric: Alert, Oriented x3 Skin: Normal Color, Damp, Other (diffuse swelling b/l LE w/ hemosiderin staining ) Lymphatic: No Adenopathy (cervical, supra/infraclavicular ) Results/Procedures Lab Laboratory Tests 06/15/19 11:04 06/16/19 03:20 Patient resulted labs reviewed. Imaging: Reviewed Imaging Films, Reviewed Imaging Report Radiology Date of Exam:06/16/19 CHEST 1 VIEW, AP/PA ONLY INDICATION: Dyspnea. COMPARISON: 06/15/2019. FINDINGS: Heart is enlarged. There is no acute infiltrate. No convincing evidence for pulmonary edema or pleural fluid. There has been no change. IMPRESSION: Stable cardiomegaly, otherwise negative. Assessment/Plan Assessment and Plan Assess & Plan/Chief Complaint Afib with RVR Lymphedema Cardiomegaly Non-Insulin dependent Diabetes mellitus Heart failure Obesity hypoventilation syndrome Gather ABG Awaiting echocardiogarm results Continue IVF, diltiazem and home meds d/c lovenox since pt is on eliquis Cardiology planning electric cardioversion tomorrow since pt did not convert chemically overnight NPO after midnight for procedure tomorrow Consult pulmonology regarding obesity hypoventilation syndrome Clinical Quality Measures DVT/VTE Risk/Contraindication: Risk Factor Score Per Nursin RFS Level Per Nursing on Admit: 4+=Very High HERMILA MCKEON DO 06/16/191956: Subjective Subjective/Events-last exam Pt doing okay today. Pt still in A-FIB may need cardioversion. ABG ordered by Dr. Andres because she appears to be at risk for obesity hypoventilation syndrome. Pt denies any SOB or any other type of symptoms. Review of Systems General: Fatigue Cardiovascular: Palpitations Objective Exam General Appearance: No Apparent Distress, WD/WN, Obese Respiratory: No Accessory Muscle Use, No Respiratory Distress, Decreased Breath Sounds Cardiovascular: Irregularly Irregular Assessment/Plan Assessment and Plan Assess & Plan/Chief Complaint Cardioversion ABG Diagnosis/Problems Diagnosis/Problems (1) Atrial fibrillation with rapid ventricular response Status: Acute (2) Body mass index 30+ - obesity Onset Date: 09/29/2013 Status: Acute Supervisory-Addendum Brief Verification & Attestation Participated in pt care: history, MDM, physical Personally performed: exam, history, MDM, supervision of care Care discussed with: Medical Student Procedures: n/a Results interpretation: Verified all documentation Verification and Attestation of Medical Student E/M Service A medical student performed and documented this service in my presence. I r eviewed and verified all information documented by the medical student and made modifications to such information, when appropriate. I personally performed the physical exam and medical decision making. Hermila Mckeon, Jun 16, 2019,19:57 JANEY LOPEZ,MED STUDENT Jun 16, 2019 10:46 HERMILA SHERMAN DO Jun 16, 2019 19:57 POS
--- NOTE | 2019-06-16 11:35 | NUR ---
Pastoral care visit.
[2019-06-16 17:30] LABS: ABG BASE EXCESS 6.6 MMOL/L (-2.5-2.5); ABG OXYGEN SATURATION 78 % (94-100); ABG PCO2 60 MMHG (35-45); ABG PH 7.35 (7.37-7.43); ABG PO2 50 MMHG (79-93); ABG TCO2 33.5 MMOL/L (21.0-31.0)
[2019-06-16 17:32] LABS: ALLENS TEST POS
[2019-06-16 17:33] LABS: INSPIRED O2 2.5; PATIENT TEMP 38.1; VENTILATOR NO
[2019-06-16] MEDS: amLODIPine 10 MG (NORVASC) TAB PO SCH (20:22)
[2019-06-16] MEDS: PANTOPRAZOLE 40 MG (PROTONIX) TAB PO SCH (20:28)
[2019-06-16] MEDS: MONTELUKAST 10 MG (SINGULAIR) TAB PO SCH (20:28)
[2019-06-16] MEDS: metFORMIN XR 500 MG (GLUCOPHAGE XR) TAB PO SCH (20:28)
[2019-06-16] MEDS: LORATADINE (CLARITIN) 10 MG TAB PO SCH (20:28)
[2019-06-17] VITALS (24 sets, daily range): BP systolic 103–161; BP diastolic 63–105
[2019-06-17 03:20] LABS: BASOPHILS % (AUTO) 0 % (0-10); EOSINOPHILS # (AUTO) 0.1 10^3/uL (0.0-0.3); EOSINOPHILS % (AUTO) 2 % (0-10); HEMATOCRIT 36 % (35-52); HEMOGLOBIN 11.3 G/DL (11.5-16.0); LYMPHOCYTES # (AUTO) 1.7 X 10^3 (1.0-4.0); LYMPHOCYTES % (AUTO) 33 % (12-44); MEAN CORPUSCULAR HEMOGLOBIN 32 PG (25-34); MEAN CORPUSCULAR HGB CONC 31 G/DL (32-36); MEAN CORPUSCULAR VOLUME 102 FL (80-99); MEAN PLATELET VOLUME 9.6 FL (7.4-10.4); MONOCYTES # (AUTO) 0.5 X 10^3 (0.0-1.0); MONOCYTES % (AUTO) 9 % (0-12); NEUTROPHILS # (AUTO) 2.9 X 10^3 (1.8-7.8); NEUTROPHILS % (AUTO) 55 % (42-75); PLATELET COUNT 278 10^3/uL (130-400); RED CELL DISTRIBUTION WIDTH 13.5 % (10.0-14.5); WHITE BLOOD COUNT 5.2 10^3/uL (4.3-11.0)
[2019-06-17 03:46] LABS: CALCIUM 8.8 MG/DL (8.5-10.1); CREATININE SERUM 1.28 MG/DL (0.60-1.30); MAGNESIUM 1.7 MG/DL (1.6-2.4); PHOSPHORUS 3.6 MG/DL (2.3-4.7); POTASSIUM 4.2 MMOL/L (3.6-5.0)
[2019-06-17] MEDS: POTASSIUM CL 10MEQ/50ML IVPB 50 ML IV SCH (05:10)
[2019-06-17] MEDS: CATHETER FLUSH 10 ML SYR IV SCH ×3 (05:10→20:24)
[2019-06-17] MEDS: inSUlin ASPART (NovoLOG) 1 UNIT/0.01 ML (CHARGE PER UNIT) SC SCH ×4 (05:11→20:24)
[2019-06-17] MEDS: KCL 20 MEQ TAB (K-DUR) PO SCH (05:11)
[2019-06-17] MEDS: MAGNESIUM 1 GM/100 ML IVPB 100 ML IV SCH (05:11)
--- NOTE | 2019-06-17 07:07 | Pulmonary Progress Note ---
Subjective Time Seen by a Provider: 09:39 Subjective/Events-last exam No complications noted. Sepsis Event Evaluation Height, Weight, BMI Height: 5'0" Weight: 335lbs. 7.0oz. 152.586644qk; 69.00 BMI Method:Stated Exam Exam Vital Signs Date Time Temp Pulse Resp B/P (MAP) Pulse Ox O2 Delivery O2 Flow Rate FiO2 06/17/19 06:00 85 16 158/102 (120) 97 Nasal Cannula 2.00 06/17/19 05:43 Nasal Cannula 2.00 06/17/19 05:00 81 16 153/100 (117) 100 Nasal Cannula 2.00 06/17/19 04:00 93 Nasal Cannula 3.00 06/17/19 04:00 81 16 135/93 (107) 93 Nasal Cannula 2.00 06/17/19 03:00 92 16 103/71 (82) 93 Nasal Cannula 2.00 06/17/19 02:00 84 19 124/82 (96) 97 Nasal Cannula 2.00 06/17/19 01:00 79 22 112/66 (81) 97 Nasal Cannula 2.00 06/17/19 00:56 83 06/17/19 00:00 94 Nasal Cannula 3.00 06/17/19 00:00 36.8 84 21 118/63 (81) 92 Nasal Cannula 2.00 06/16/19 23:00 77 21 108/67 (81) 92 Nasal Cannula 2.00 06/16/19 22:00 81 21 99/57 (71) 92 Nasal Cannula 2.00 06/16/19 21:00 80 21 119/57 (77) 93 Nasal Cannula 2.00 06/16/19 20:00 86 21 126/85 (99) 93 Nasal Cannula 2.00 06/16/19 20:00 96 Nasal Cannula 3.00 06/16/19 19:38 36.9 85 20 119/74 (89) 94 Nasal Cannula 2.00 06/16/19 19:00 89 06/16/19 18:00 88 13 119/75 (90) 93 Nasal Cannula 2.00 06/16/19 17:00 92 44 109/75 (86) 95 Nasal Cannula 2.00 06/16/19 16:00 97 Nasal Cannula 2.00 06/16/19 16:00 90 14 96/63 (74) 96 Nasal Cannula 2.00 06/16/19 15:00 84 15 118/65 (82) 93 Nasal Cannula 2.00 06/16/19 14:00 86 22 99/64 (76) 94 Nasal Cannula 2.00 06/16/19 13:00 93 06/16/19 13:00 90 14 131/74 (93) 91 Nasal Cannula 2.00 06/16/19 12:00 97 Nasal Cannula 2.00 06/16/19 12:00 98 15 128/84 (99) 96 Nasal Cannula 2.00 06/16/19 11:25 37.1 06/16/19 11:00 96 22 105/90 (95) 97 Nasal Cannula 2.00 06/16/19 10:00 96 101/90 (94) 97 Nasal Cannula 2.00 06/16/19 09:17 96 126/71 06/16/19 09:00 94 117/75 (89) Nasal Cannula 2.00 06/16/19 08:00 78 14 115/70 (85) 97 Nasal Cannula 2.00 06/16/19 08:00 97 Nasal Cannula 2.00 06/16/19 07:08 Nasal Cannula 2.00 I & O 06/17/19 07:00 Intake Total 3725 ml Output Total 3925 ml Balance -200 ml Height & Weight Height: 5'0" Weight: 335lbs. 7.0oz. 152.445502ph; 69.00 BMI Method:Stated General Appearance: No Apparent Distress, WD/WN, Obese HEENT: PERRL/EOMI, Normal ENT Inspection, Pharynx Normal, Moist Mucous Membranes Neck: Full Range of Motion, Normal Inspection, Non Tender Respiratory: No Accessory Muscle Use, No Respiratory Distress, Decreased Breath Sounds Cardiovascular: Irregularly Irregular Capillary Refill: Less Than 3 Seconds Extremity: Normal Capillary Refill, Normal Inspection, Normal Range of Motion, Non Tender, No Calf Tenderness, No Pedal Edema Neurologic/Psychiatric: Alert, Oriented x3, No Motor/Sensory Deficits, Normal Mood/Affect Skin: Normal Color, Warm/Dry Lymphatic: No Adenopathy Results Lab Laboratory Tests 06/15/19 11:04 06/16/19 03:20 06/17/19 03:05 Assessment/Plan Assessment/Plan Afib rvr -Cardizem gtt -- currently off secondary to hypotension. -Cardiology following Hypoxia with worsening SOB - ABG Morbid obesity r/o OHS -PT will benefit from home vent to mask. -ABG shows C02 of 60 SHARON JOSEPH DO Jun 17, 2019 07:07 POS
--- NOTE | 2019-06-17 07:35 | Diagnostic Imaging Report ---
INDICATION: Dyspnea. Comparison with 06/16/2019. FINDINGS: The lungs are well-aerated and clear. Mild cardiac enlargement is again noted. No pneumothorax or pleural effusion. No bony abnormalities. IMPRESSION: Cardiomegaly with no acute change. Dictated by: Dictated on workstation # [id number]
[2019-06-17] MEDS ORDERED: NS IV 500 ML 500 ML ONE (08:25)
[2019-06-17] MEDS ORDERED: LIDOCAINE 2% VISCOUS 15 ML UDC ONE (08:25)
[2019-06-17] MEDS ORDERED: MIDAZOLAM 5 MG/5 ML (VERSED) VIAL ONE (08:26)
[2019-06-17] MEDS ORDERED: proPOfol 200 MG/20 ML (DIPRIVAN) VIAL IV ONE (08:26)
[2019-06-17] MEDS: NS IV 500 ML 500 ML IV SCH (08:40)
[2019-06-17] MEDS ORDERED: LIDOCAINE 2% VISCOUS 15 ML UDC PO ONE (08:45)
--- NOTE | 2019-06-17 09:15 | Cardiac Procedure Note-CS/ASA ---
Pre-Procedure Note Pre-Op Procedure Note H&P Reviewed The H&P was reviewed, patient examined and no changes noted. Date H&P Reviewed: Jun 17, 2019 Time H&P Reviewed: 09:15 Conscious Sedation Pre-Proced Time 09:15 ASA Score 3 For ASA 3 and 4: Consider anesthesia and medical clearance. Also, for patients with a history of failed moderate sedation consider anesthesia. Airway Lungs Heart ASA score ASA 1: a normal healthy patient ASA 2: a patient with a mild systemic disease (mid diabetes, controlled hypertension, obesity x ASA 3: a patient with a severe systemic disease that limits activity (angina, COPD, prior Myocardial infarction) ASA 4: a patient with an incapacitating disease that is a constant threat to life (CHF, renal failure) ASA 5: a moribund patient not expected to survive 24 hrs. (ruptured aneurysm) ASA 6: a declared brain- patient whose organs are being harvested. For emergent operations, add the letter E after the classification Mallampati Classification Grade 3 Sedation Plan Analgesia, Amnesia, Plan communicated to team members, Discussed options with patient/fam, Discussed risks with patient/fam The patient is an appropriate candidate to undergo the planned procedure, sedation, and anesthesia. The patient immediately re-assessed prior to indication. ANTONIETTA ROGER MD Jun 17, 2019 09:15 POS
[2019-06-17] MEDS ORDERED: MIDAZOLAM 5 MG/5 ML (VERSED) VIAL IVP ONE (10:00)
--- NOTE | 2019-06-17 10:00 | NUR ---
09 THIS NURSE, AND BOOKMOBILE CLERK, AND DR ROGER AT BEDSIDE FOR KATHERINE AND CARDIOVERSION. PT AND ROOM PREPPED 928 ANESTHESIA ARRIVED TO ASSISTED WITH KATHERINE AND CARDIOVERSION. 32 PER ANESTHESIA 2 MG OF VERSED WERE GIVEN AND 50 MCG OF PROPOFOL WERE GIVE VIA IV. [address] ROGER DELIVERED SYNCHRONIZED SHOCK OF 200J. PT REMAINED IN A FIB. 0943 DR ROGER DELIVERED ANOTHER SYNCHRONIZED SHOCK OF 200 J. PT REMAINED IN A. FIB. 0943 VITALS STABLE. PT REPORTS NO PAIN. NURSE AT BEDSIDE TO MONITOR. 45 3 MG OF VERSED WASTED WITH ANIKET PARKS AND EMI PARKS. WILL CONTINUE TO MONITOR.
--- NOTE | 2019-06-17 10:21 | Cardioversion ---
Cardioversion PROCEDURE PHYSICIAN: Antonietta Moran DATE OF PROCEDURE: 06/17/19 DIRECT EXTERNAL ELECTRICAL CARDIOVERSION: Indications: Atrial Fibrillation with rapid ventricular rate Anesthesia: By Anesthesia services Complications: None Specimen: None Contrast: 0 Flouroscopy: none Procedure Details: The patient was brought the computer lab assistant after informed consent was taken, all the risks and complications were explained including the risk of stroke. Electrical cardioversion was carried out with anesthesia support with propofol. 200 joules of synchronized 2 shocks were delivered through external patches which failed to restore sinus rhythm. Patient will be loaded with amiodarone and will attempt cardioversion tomorrow Conclusions: Failed attempt for electrical cardioversion, received 2 shocks, failed to convert to sinus rhythm, I will load with amiodarone and evaluate tolerance and response Final Diagnosis: Paroxysmal atrial fibrillation COPD Shortness of breath Hypertension ANTONIETTA MORAN MD Jun 17, 2019 10:21 POS
--- NOTE | 2019-06-17 10:23 | Cardiology Progress Note ---
Subjective Date Seen by Provider: Jun 17, 2019 Time Seen by Provider: 10:22 Subjective/Events-last exam patient is laying down in bed, no new complaint. Underwent cardioversion Review of Systems General: No Chills, No Night Sweats, No Fatigue, No Malaise, No Appetite, No Other HEENT: No Head Aches, No Visual Changes, No Eye Pain, No Ear Pain, No Dysphasia, No Sinus Congestion, No Post Nasal Drip, No Sore Throat, No Other Pulmonary: Dyspnea; No Cough, No Pleuritic Chest Pain, No Other Cardiovascular: No: Chest Pain, Palpitations, Orthopnea, Paroxysmal Noc. Dyspnea, Edema, Lt Headedness, Other Objective-Cardiology Exam Last Set of Vital Signs Vital Signs 06/17/19 06/17/19 00:00 09:00 Temp 36.8 Pulse 97 Resp 17 B/P (MAP) 148/82 (104) Pulse Ox 95 O2 Delivery Nasal Cannula O2 Flow Rate 2.00 Capillary Refill : Less Than 3 Seconds I&O Intake and Output 06/17/19 00:00 Intake Total 3875 ml Output Total 3950 ml Balance -75 ml Intake Oral 3750 ml IV Total 125 ml Output Urine Total 3950 ml General: Alert, Oriented X3, Cooperative HEENT: Atraumatic, PERRLA Neck: Supple, No JVD, No Thyromegaly Lungs: Normal Air Movement, Other (Bilateral rhonchi) Heart: Normal S1, Normal S2, No Murmurs, Other (Atrial fibrillation) Abdomen: Normal Bowel Sounds, Soft, No Tenderness, No Hepatosplenomegaly, No Masses Extremities: No Clubbing, No Cyanosis, Normal Pulses, No Tenderness/Swelling, Other (Edema) Skin: No Rashes, No Breakdown, No Significant Lesion Neuro: Normal Gait, Normal Speech, Strength at 5/5 X4 Ext, Normal Tone, Sensation Intact Psych/Mental Status: Mental Status NL, Mood NL Results Lab Laboratory Tests 06/17/19 03:05 A/P-Cardiology Admission Diagnosis Atrial fibrillation Palpitation Dyspnea Peripheral edema Hypertension Assessment/Plan Atrial fibrillation of unknown duration, failed attempt for cardioversion, KATHERINE showed moderate mitral regurgitation, I will load with amiodarone and evaluate for cardioversion tomorrow Palpitation and shortness of breath probably due to underlying atrial fibrillation, continue to monitor Hypertension, monitor blood pressure, has been on amlodipine as an outpatient. Currently on Cardizem drip Peripheral edema, maintained on Lasix as an outpatient, planning to evaluate 2-D echo. Monitor closely Diabetes mellitus, maintained on metformin, on hold for now Obesity, BMI 16 9, we discussed weight loss High risk for obstructive sleep apnea/COPD. I will consult Dr. Andres Clinical Quality Measures DVT/VTE Risk/Contraindication: Risk Factor Score Per Nursin RFS Level Per Nursing on Admit: 4+=Very High ANTONIETTA RGOER MD Jun 17, 2019 10:23 POS
[2019-06-17] MEDS ORDERED: AMIODARONE FOR BOLUS 150 MG in D5W 100 ML IVPB 100 ML IV NR (10:30)
[2019-06-17] MEDS: FUROSEMIDE 40 MG (LASIX) TAB PO SCH (10:41)
[2019-06-17] MEDS: APIXABAN 5 MG (ELIQUIS) TABLET PO SCH ×2 (10:41→20:24)
[2019-06-17] MEDS: oxyCODONE/APAP 10/325MG (PERCOCET 10) TABLET PO SCH ×3 (10:41→20:23)
[2019-06-17] MEDS: AMIODARONE INJECTION 450 MG in D5W IV SOLUTION (EXCEL) 250 ML IV SCH ×2 (10:57→19:02)
--- NOTE | 2019-06-17 11:40 | Progress Note - Hospitalist ---
JANEY LOPEZ,MED STUDENT 06/17/19 1140: Subjective HPI/CC On Admission Date Seen by Provider: Jun 17, 2019 Time Seen by Provider: 07:36 Chief complaint: A-FIB with RVR HPI: This is a 78yoWF who has a PMH of morbid obesity who presented with A-FIB with RVR, Pt required ICU cardiac step-down admission for rate control, cardiology consultation. Pt remains in A-FIB. Pt may require cardioversion. Subjective/Events-last exam Pt feeling well today, asking if she can go home today after her transesophageal echocardiogram with cardioversion No complaints today of any pain, including chest pain, or shortness of breath Is not getting OOB and ambulating Very happy with how much fluid we have diuresed off of her legs, says her normal is very edematous Accompanied by granddaughter and cousin in room. Objective Exam Vital Signs Vital Signs Date Time Temp Pulse Resp B/P (MAP) Pulse Ox O2 Delivery O2 Flow Rate FiO2 06/17/19 13:13 Room Air 06/17/19 12:00 36.2 06/17/19 09:00 97 17 148/82 (104) 95 2.00 Capillary Refill : Less Than 3 Seconds General Appearance: Chronically ill, Obese HEENT: PERRL/EOMI, Pharynx Normal, Moist Mucous Membranes Neck: Non Tender, Supple Respiratory: Chest Non Tender, Lungs Clear, No Accessory Muscle Use, No Respiratory Distress, Decreased Breath Sounds Cardiovascular: Normal Peripheral Pulses, Irregularly Irregular Gastrointestinal: Non Tender, Soft Extremity: Pedal Edema, Swelling (reduced), Other (hemosiderin staining b/l LE ) Neurologic/Psychiatric: Alert, Oriented x3 Skin: Warm/Dry, Pallor Results/Procedures Lab Laboratory Tests 06/17/19 03:05 Patient resulted labs reviewed. Imaging: Reviewed Imaging Films, Reviewed Imaging Report Radiology CHEST 1 VIEW, AP/PA ONLY INDICATION: Dyspnea. Comparison with 06/16/2019. FINDINGS: The lungs are well-aerated and clear. Mild cardiac enlargement is again noted. No pneumothorax or pleural effusion. No bony abnormalities. IMPRESSION: Cardiomegaly with no acute change. Assessment/Plan Assessment and Plan Assess & Plan/Chief Complaint Afib with RVR Pulmonary hypertension Lymphedema Cardiomegaly Non-Insulin dependent Diabetes mellitus Respiratory acidosis with insuf. metabolic compensation Obesity hypoventilation syndrome Continue IVF support Echo showed RA, LA dilation, tricuspid regurgitation and pulmonary htn Continue IVF, diltiazem and home meds KATHERINE with electroconversion failed to cardiovert today, Cardiology starting amiodarone and re-evaluating tomorrow Pulm rec. sending pt home with home vent to mask Clinical Quality Measures DVT/VTE Risk/Contraindication: Risk Factor Score Per Nursin RFS Level Per Nursing on Admit: 4+=Very High HERMILA DUKES DO 06/17/192049: Subjective Subjective/Events-last exam KATHERINE today Cardioversion today Home O2 will be needed so I did put that order in Pulmonary Hypertension at 61 noted UTI noted with E.coli but UA was normal but catheter shows E.coli so will start Rocephin Review of Systems General: Fatigue Objective Exam General Appearance: No Apparent Distress, Chronically ill, Obese Assessment/Plan Assessment and Plan Assess & Plan/Chief Complaint Cardioversion Monitor closely Tx UTI Diagnosis/Problems Diagnosis/Problems (1) Atrial fibrillation with rapid ventricular response Status: Acute (2) Body mass index 30+ - obesity Onset Date: 09/29/2013 Status: Acute Supervisory-Addendum Brief Verification & Attestation Participated in pt care: history, MDM, physical Personally performed: exam, history, MDM, supervision of care Care discussed with: Medical Student Procedures: n/a Results interpretation: Verified all documentation Verification and Attestation of Medical Student E/M Service A medical student performed and documented this service in my presence. I reviewed and verified all information documented by the medical student and made modifications to such information, when appropriate. I personally performed the physical exam and medical decision making. Hermila Dukes, Jun 17, 2019,20:50 JANEY LOPEZ,MED STUDENT Jun 17, 2019 11:40 HERMILA SHERMAN DO Jun 17, 2019 20:50 POS
[2019-06-17] MEDS: cefTRIAXone FOR IV USE 1,000 MG in WATER (STERILE) FOR INJECTION 10 ML IV SCH (13:53)
--- NOTE | 2019-06-17 15:03 | Anesthesia-General Post-Op ---
MAC Patient Condition Mental Status/LOC: Same as Preop Cardiovascular: Satisfactory Nausea/Vomiting: Absent Respiratory: Satisfactory Pain: Controlled Complications: Absent Post Op Complications Complications None Follow Up Care/Instructions Patient Instructions None needed. Anesthesiology Discharge Order Discharge Order late entry from 0930: Patient is doing well, no complaints, stable vital signs, no apparent adverse anesthesia problems. No complications reported per nursing. AYANA HORNE CRNA Jun 17, 2019 15:03 POS
--- NOTE | 2019-06-17 15:15 | NUR ---
SPO2 DID NOT DROP BELOW 90% ON ROOM AIR WITH EXERTION. Addendum: 06/17/19 at 1537 by ZOILA MCDONALD RT Amended: Links added.
[2019-06-17] MEDS: DILTIAZEM 125 MG/NS 100 ML IV SCH ×2 (15:34)
[2019-06-17] MEDS: POLYETHYLENE GLYCOL 17 GM (MIRALAX) PACK PO PRN (16:40)
[2019-06-17] MEDS ORDERED: CALCIUM CARBONATE 500 MG (TUMS) TAB.CHEW PO PRN (19:45)
[2019-06-17] MEDS ORDERED: DOCUSATE SODIUM 100 MG (COLACE) CAP PO PRN (19:45)
[2019-06-17] MEDS ORDERED: ALPRAZolam 0.25 MG (XANAX) TAB PO PRN (19:45)
[2019-06-17] MEDS: diphenhydrAMINE 25 MG TAB (BENADRYL) PO PRN (19:48)
[2019-06-17] MEDS: MONTELUKAST 10 MG (SINGULAIR) TAB PO SCH (20:24)
[2019-06-17] MEDS: metFORMIN XR 500 MG (GLUCOPHAGE XR) TAB PO SCH (20:24)
[2019-06-17] MEDS: LORATADINE (CLARITIN) 10 MG TAB PO SCH (20:24)
[2019-06-17] MEDS: amLODIPine 10 MG (NORVASC) TAB PO SCH (20:24)
[2019-06-17] MEDS: PANTOPRAZOLE 40 MG (PROTONIX) TAB PO SCH (20:24)
[2019-06-18] VITALS (15 sets, daily range): BP systolic 109–144; BP diastolic 70–100
[2019-06-18] MEDS: diphenhydrAMINE 25 MG TAB (BENADRYL) PO PRN (00:36)
[2019-06-18] MEDS: NS IV 500 ML 500 ML IV SCH (02:12)
[2019-06-18 03:02] LABS: BASOPHILS % (AUTO) 0 % (0-10); EOSINOPHILS # (AUTO) 0.2 10^3/uL (0.0-0.3); EOSINOPHILS % (AUTO) 3 % (0-10); HEMATOCRIT 36 % (35-52); HEMOGLOBIN 11.7 G/DL (11.5-16.0); LYMPHOCYTES # (AUTO) 1.7 X 10^3 (1.0-4.0); LYMPHOCYTES % (AUTO) 33 % (12-44); MEAN CORPUSCULAR HEMOGLOBIN 33 PG (25-34); MEAN CORPUSCULAR HGB CONC 33 G/DL (32-36); MEAN CORPUSCULAR VOLUME 100 FL (80-99); MEAN PLATELET VOLUME 10.2 FL (7.4-10.4); MONOCYTES # (AUTO) 0.6 X 10^3 (0.0-1.0); MONOCYTES % (AUTO) 12 % (0-12); NEUTROPHILS # (AUTO) 2.8 X 10^3 (1.8-7.8); NEUTROPHILS % (AUTO) 53 % (42-75); PLATELET COUNT 244 10^3/uL (130-400); RED CELL DISTRIBUTION WIDTH 13.4 % (10.0-14.5); WHITE BLOOD COUNT 5.2 10^3/uL (4.3-11.0)
[2019-06-18 03:37] LABS: CREATININE SERUM 1.42 MG/DL (0.60-1.30); MAGNESIUM 1.5 MG/DL (1.6-2.4); PHOSPHORUS 3.5 MG/DL (2.3-4.7); POTASSIUM 4.1 MMOL/L (3.6-5.0)
--- NOTE | 2019-06-18 04:10 | Pulmonary Progress Note ---
Subjective Date Seen by a Provider: Jun 18, 2019 Time Seen by a Provider: 04:04 Subjective/Events-last exam Pt had unsuccessful cardioversion yesterday, is going for another cardioversion today. Pt has no complaints at this time, no acute events over night. Pt desaturates down into low 80's when sleeping. Sepsis Event Evaluation Height, Weight, BMI Height: 5'0" Weight: 335lbs. 7.0oz. 152.851051vs; 69.00 BMI Method:Stated Exam Exam Vital Signs Date Time Temp Pulse Resp B/P (MAP) Pulse Ox O2 Delivery O2 Flow Rate FiO2 06/18/19 02:00 74 35 115/74 (88) 92 Nasal Cannula 2.00 06/18/19 01:00 81 06/18/19 01:00 81 11 115/72 (86) 89 Nasal Cannula 2.00 06/18/19 00:00 68 11 126/79 (95) 89 Nasal Cannula 2.00 06/17/19 23:15 93 Nasal Cannula 2.00 06/17/19 23:15 36.8 Nasal Cannula 2.00 06/17/19 23:00 87 13 121/73 (89) 92 Nasal Cannula 2.00 06/17/19 22:00 Nasal Cannula 2.00 06/17/19 22:00 77 27 121/78 (92) 93 Nasal Cannula 2.00 06/17/19 21:00 75 13 117/69 (85) 91 Room Air 06/17/19 20:00 87 14 116/76 (89) 96 06/17/19 20:00 37.1 06/17/19 19:45 Room Air 06/17/19 19:40 95 Room Air 06/17/19 19:28 92 Room Air 06/17/19 19:00 92 06/17/19 19:00 94 26 120/66 (84) 90 06/17/19 18:00 17 105/65 (78) 96 Room Air 2.00 06/17/19 17:00 90 13 129/73 (91) 91 Room Air 2.00 06/17/19 16:00 93 35 118/73 (88) 92 Room Air 2.00 06/17/19 16:00 37.2 06/17/19 16:00 92 Room Air 06/17/19 15:34 139/85 06/17/19 15:15 98 2.00 11/20/19 15:00 95 19 137/96 (110) 100 Room Air 2.00 06/17/19 14:00 86 11 124/77 (93) 97 Room Air 2.00 06/17/19 13:13 Room Air 06/17/19 13:00 99 31 127/82 (97) 71 Nasal Cannula 2.00 06/17/19 12:46 115 06/17/19 12:00 32 108/92 (97) 89 Nasal Cannula 2.00 06/17/19 12:00 96 Nasal Cannula 2.50 06/17/19 12:00 36.2 06/17/19 11:00 87 12 125/78 (94) 95 Nasal Cannula 2.00 06/17/19 10:00 99 16 129/73 (91) 94 Nasal Cannula 2.00 06/17/19 09:00 97 17 148/82 (104) 95 Nasal Cannula 2.00 06/17/19 08:00 86 50 145/72 (96) 96 Nasal Cannula 2.00 06/17/19 08:00 Nasal Cannula 2.50 06/17/19 07:00 81 21 161/105 (123) 98 Nasal Cannula 2.00 06/17/19 06:37 94 06/17/19 06:00 85 16 158/102 (120) 97 Nasal Cannula 2.00 06/17/19 05:43 Nasal Cannula 2.00 06/17/19 05:00 81 16 153/100 (117) 100 Nasal Cannula 2.00 I & O 06/18/19 07:00 Intake Total 1262 ml Output Total 4150 ml Balance -2888 ml Height & Weight Height: 5'0" Weight: 335lbs. 7.0oz. 152.370576qj; 69.00 BMI Method:Stated General Appearance: No Apparent Distress, Chronically ill, Obese HEENT: PERRL/EOMI, Pharynx Normal, Moist Mucous Membranes Neck: Non Tender, Supple Respiratory: Chest Non Tender, Lungs Clear, No Accessory Muscle Use, No Respiratory Distress, Decreased Breath Sounds Cardiovascular: Normal Peripheral Pulses, Irregularly Irregular Capillary Refill: Less Than 3 Seconds Extremity: Pedal Edema, Swelling (reduced), Other (hemosiderin staining b/l LE ) Neurologic/Psychiatric: Alert, Oriented x3 Skin: Warm/Dry, Pallor Lymphatic: No Adenopathy Results Lab Laboratory Tests 06/17/19 03:05 06/18/19 02:45 Assessment/Plan Assessment/Plan Afib rvr -Cardiology following, appreciate recommendations -had failed attempt for cardioversion yesterday, reattempt today -pt loaded with Amiodarone yesterday and on Cardizem gtt Bacteremia with E. Coli -cultures on 06/15 grew E. Coli -continue Rocephin Hypoxia with worsening SOB - ABG Hypomagnesemia -replace Morbid obesity r/o OHS -PT will benefit from home vent to mask. -ABG shows C02 of 60 MIRIAN WRAY MEDICAL STUDENT Jun 18, 2019 04:10 POS
[2019-06-18] MEDS: CATHETER FLUSH 10 ML SYR IV SCH ×2 (05:16→12:52)
[2019-06-18] MEDS: MAGNESIUM 1 GM/100 ML IVPB 100 ML IV SCH (05:16)
[2019-06-18] MEDS: POTASSIUM CL 10MEQ/50ML IVPB 50 ML IV SCH (05:16)
[2019-06-18] MEDS: KCL 20 MEQ TAB (K-DUR) PO SCH (05:17)
[2019-06-18] MEDS: inSUlin ASPART (NovoLOG) 1 UNIT/0.01 ML (CHARGE PER UNIT) SC SCH ×3 (05:17→17:28)
--- NOTE | 2019-06-18 07:14 | Cardiology Progress Note ---
Subjective Date Seen by Provider: Jun 18, 2019 Time Seen by Provider: 07:12 Subjective/Events-last exam Patient is laying down in bed. Feeling better. No new complaint, still having shortness of breath Review of Systems General: No Chills, No Night Sweats; Fatigue; No Malaise, No Appetite, No Other HEENT: No Head Aches, No Visual Changes, No Eye Pain, No Ear Pain, No Dysphasia, No Sinus Congestion, No Post Nasal Drip, No Sore Throat, No Other Pulmonary: Dyspnea; No Cough, No Pleuritic Chest Pain, No Other Cardiovascular: Edema; No: Chest Pain, Palpitations, Orthopnea, Paroxysmal Noc. Dyspnea, Lt Headedness, Other Objective-Cardiology Exam Last Set of Vital Signs Vital Signs 06/18/19 06:00 Pulse 82 Resp 21 B/P (MAP) 124/73 (90) Pulse Ox 90 O2 Delivery Nasal Cannula O2 Flow Rate 2.00 Capillary Refill : Less Than 3 Seconds I&O Intake and Output 06/18/19 00:00 Intake Total 1162 ml Output Total 4800 ml Balance -3638 ml Intake Oral 800 ml IV Total 362 ml Output Urine Total 4800 ml General: Alert, Oriented X3, Cooperative HEENT: Atraumatic, PERRLA Neck: Supple, No JVD, No Thyromegaly Lungs: Normal Air Movement, Other (Bilateral rhonchi) Heart: Normal S1, Normal S2, No Murmurs, Other (Atrial fibrillation) Abdomen: Normal Bowel Sounds, Soft, No Tenderness, No Hepatosplenomegaly, No Masses Extremities: No Clubbing, No Cyanosis, Normal Pulses, No Tenderness/Swelling, Other (Edema) Skin: No Rashes, No Breakdown, No Significant Lesion Neuro: Normal Gait, Normal Speech, Strength at 5/5 X4 Ext, Normal Tone, Sensation Intact Psych/Mental Status: Mental Status NL, Mood NL Results Lab Laboratory Tests 06/18/19 02:45 A/P-Cardiology Admission Diagnosis Atrial fibrillation Palpitation Dyspnea Peripheral edema Hypertension Assessment/Plan Atrial fibrillation of unknown duration, failed attempt for cardioversion, KATHERINE showed moderate mitral regurgitation, she is loaded with amiodarone with a bolus and a drip. Planning to repeat attempt for cardioversion today. Palpitation and shortness of breath probably due to underlying atrial fibrillation, continue to monitor Hypertension, monitor blood pressure, has been on amlodipine as an outpatient. Currently on Cardizem drip Peripheral edema, slightly better. Continue to monitor Acute renal insufficiency, hold Lasix for now and monitor Diabetes mellitus, maintained on metformin, on hold for now Obesity, BMI 67, we discussed weight loss High risk for obstructive sleep apnea/, discussed with Dr. Andres, working on getting her C Pap Clinical Quality Measures DVT/VTE Risk/Contraindication: Risk Factor Score Per Nursin RFS Level Per Nursing on Admit: 4+=Very High ANTONIETTA ROGER MD Jun 18, 2019 07:14 POS
--- NOTE | 2019-06-18 07:15 | Cardiac Procedure Note-CS/ASA ---
Pre-Procedure Note Pre-Op Procedure Note H&P Reviewed The H&P was reviewed, patient examined and no changes noted. Date H&P Reviewed: Jun 18, 2019 Time H&P Reviewed: 07:14 Conscious Sedation Pre-Proced Time 07:14 ASA Score 3 For ASA 3 and 4: Consider anesthesia and medical clearance. Also, for patients with a history of failed moderate sedation consider anesthesia. Airway Lungs Heart ASA score ASA 1: a normal healthy patient ASA 2: a patient with a mild systemic disease (mid diabetes, controlled hypertension, obesity x ASA 3: a patient with a severe systemic disease that limits activity (angina, COPD, prior Myocardial infarction) ASA 4: a patient with an incapacitating disease that is a constant threat to life (CHF, renal failure) ASA 5: a moribund patient not expected to survive 24 hrs. (ruptured aneurysm) ASA 6: a declared brain- patient whose organs are being harvested. For emergent operations, add the letter E after the classification Mallampati Classification Grade 3 Sedation Plan Analgesia, Amnesia, Plan communicated to team members, Discussed options with patient/fam, Discussed risks with patient/fam The patient is an appropriate candidate to undergo the planned procedure, sedation, and anesthesia. The patient immediately re-assessed prior to indication. ANTONIETTA ROGER MD Jun 18, 2019 07:15 POS
[2019-06-18] MEDS ORDERED: proPOfol 200 MG/20 ML (DIPRIVAN) VIAL IV ONE ×2 (07:36→07:49)
[2019-06-18] MEDS ORDERED: MIDAZOLAM 5 MG/5 ML (VERSED) VIAL ONE (07:36)
--- NOTE | 2019-06-18 08:24 | Cardioversion ---
Cardioversion PROCEDURE PHYSICIAN: Antonietta Moran DATE OF PROCEDURE: 06/18/19 DIRECT EXTERNAL ELECTRICAL CARDIOVERSION: Indications: Atrial Fibrillation with rapid ventricular rate Preoperative diagnoses: Atrial Fibrillation with rapid ventricular rate Postoperative diagnosis: Sinus rhythm, Successful Electrical Cardioversion Anesthesia: By Anesthesia services Complications: None Specimen: None Contrast: 0 Flouroscopy: none Procedure Details: The patient was brought the lab technologist after informed consent was taken, all the risks and complications were explained including the risk of stroke. Electrical cardioversion was carried out with anesthesia support with propofol. 200 joules of synchronized shock was delivered through external patches which promptly restored sinus rhythm. The patient tolerated the procedure well. Conclusions: Successful electrical cardioversion with no complication Discussion and plan Patient was loaded with amiodarone, continue with amiodarone and oral anticoagulation from ANTONIETTA MORAN MD Jun 18, 2019 08:24 POS
--- NOTE | 2019-06-18 08:28 | Diagnostic Imaging Report ---
INDICATION: Dyspnea and atrial fibrillation. TIME OF EXAM: 3:26 AM Correlation is made with prior chest one day earlier. FINDINGS: The heart is enlarged but stable. There is central congestion but no overt failure. No effusion or pneumothorax is seen. IMPRESSION: Cardiomegaly and central congestion. Dictated by: Dictated on workstation # [id number]
[2019-06-18] MEDS ORDERED: AMIODARONE 200 MG (CORDARONE) TAB PO SCH (09:00)
--- NOTE | 2019-06-18 09:00 | NUR ---
VERBAL ORDERS GIVEN TO DC CORDOVA CATH, GET PHYSICAL THERAPY EVAL, AND GET RT RECOMMENDATIONS FOR HOME OXYGEN.
--- NOTE | 2019-06-18 09:00 | NUR ---
0735 DR ROGER SAID TO CALL ANESTHESIA. 0745 ANESTHESIA AT BEDSIDE. 0755 500 ML NORMAL SALINE STARTED TO GRAVITY PER ANESTHESIA. PROPOFOL GIVE IV PER ANESTHESIA. BP 122/104 AND HR 86. 0757 PROPOFOL GIVE IV PER ANESTHESIA. 0758 SYNCHRONIZED SHOCK DELIVERED. PT IN NORMAL SINUS RHYTHM. 0800 EKG OBTAINED SHOWING NORMAL SINUS RHYTHM. DR ROGER AT BEDSIDE. 0810 PT AWAKE AND ABLE TO ANSWER QUESTIONS. VITALS STABLE. NURSE AT BEDSIDE WILL CONTINUE TO MONITOR.
--- NOTE | 2019-06-18 09:20 | NUR ---
NURSE NOTIFIED DR ROGER PT WAS STILL ON CARDIZEM DRIP. ORDERS GIVEN FOR PO CARDIZEM. DR ACACIA PHILLIPSAY WITH DC AND F/U IN 1-2 WEEKS.
[2019-06-18] MEDS: APIXABAN 5 MG (ELIQUIS) TABLET PO SCH (09:23)
[2019-06-18] MEDS: oxyCODONE/APAP 10/325MG (PERCOCET 10) TABLET PO SCH ×2 (09:23→12:52)
[2019-06-18] MEDS: FUROSEMIDE 40 MG (LASIX) TAB PO SCH (09:23)
[2019-06-18] MEDS ORDERED: AMIO200T4 PO (10:17)
[2019-06-18] MEDS ORDERED: CEPH-507 PO (10:17)
[2019-06-18] MEDS ORDERED: APIX5TAB PO (10:17)
[2019-06-18] MEDS ORDERED: DILT30TA PO (10:17)
--- NOTE | 2019-06-18 10:44 | Discharge Summary ---
JANEY LOPEZ,MED STUDENT 06/18/19 1044: Diagnosis/Chief Complaint Date of Admission Jun 16, 2019 at 08:30 Date of Discharge Discharge Date: Jun 18, 2019 Admission Diagnosis Assessment: New onset AF w/RVR OHA Plan: Cardiology appreciated Dr Andres appreciated [facility] Discharge Diagnosis (1) Atrial fibrillation with rapid ventricular response Status: Acute (2) Body mass index 30+ - obesity Onset Date: 09/29/2013 Status: Acute Discharge Summary Discharge Physical Exam Allergies: Coded Allergies: penicillin G (Verified Allergy, Unknown, 07/08/06) Vitals & I&Os Vital Signs Date Time Temp Pulse Resp B/P (MAP) Pulse Ox O2 Delivery O2 Flow Rate FiO2 06/18/19 10:00 84 29 109/76 (87) 96 Nasal Cannula 2.00 06/18/19 04:10 36.7 General Appearance: No Apparent Distress, Chronically ill, Obese HEENT: PERRL/EOMI, Pharynx Normal, Moist Mucous Membranes Respiratory: Chest Non Tender, Lungs Clear, No Accessory Muscle Use, No Respiratory Distress, Decreased Breath Sounds, Other (on NC ) Cardiovascular: Regular Rate, Rhythm, No Gallop, No Murmur Extremity: Non Tender, No Calf Tenderness, Inflammation, Pedal Edema, Swelling Skin: Pallor, Other (hemosiderin staining) Neurologic/Psychiatric: Alert, Oriented x3, Normal Mood/Affect Hospital Course Pt presented to [facility] ER after attending appointment at [facility] and being referred to ER due to tachycardia and weakness. Telemetry performed in the ER revealed atrial fibrillation with rapid ventricular response. Rate control therapy, supportive care and administration of oxygen was started in the ER and the patient was admitted to the ICU for observation. Pulmonology was consulted for hypoxia and made recommendations for home oxygen therapy. Cardiology was consulted and led the management of her rate control and made plans to perform cardioversion. First cardioversion was unsuccessful so the patient was started on amiodarone. Cardioversion performed the next day was successful in converting to normal sinus rhythm. Pt was discharged with nocturnal oxygen. Labs (last 24 hrs) Laboratory Tests 06/17/19 11:20: Glucometer 99 06/17/19 15:45: Glucometer 117H 06/18/19 02:45: White Blood Count 5.2, Red Blood Count 3.60L, Hemoglobin 11.7, Hematocrit 36, Mean Corpuscular Volume 100H, Mean Corpuscular Hemoglobin 33, Mean Corpuscular Hemoglobin Concent 33, Red Cell Distribution Width 13.4, Platelet Count 244, Mean Platelet Volume 10.2, Neutrophils (%) (Auto) 53, Lymphocytes (%) (Auto) 33, Monocytes (%) (Auto) 12, Eosinophils (%) (Auto) 3, Basophils (%) (Auto) 0, Neutrophils # (Auto) 2.8, Lymphocytes # (Auto) 1.7, Monocytes # (Auto) 0.6, Eosinophils # (Auto) 0.2, Basophils # (Auto) 0.0, Sodium Level 140, Potassium Level 4.1, Chloride Level 99, Carbon Dioxide Level 27, Anion Gap 14, Blood Urea Nitrogen 19H, Creatinine 1.42H, Estimat Glomerular Filtration Rate 36, BUN/Creatinine Ratio 13, Glucose Level 125H, Calcium Level 9.0, Phosphorus Level 3.5, Magnesium Level 1.5L Microbiology 06/15/19 Urine Culture - Final, Complete Escherichia coli Patient resulted labs reviewed. Pending Labs Laboratory Tests 06/18/19 02:45: White Blood Count 5.2, Red Blood Count 3.60, Hemoglobin 11.7, Hematocrit 36, Mean Corpuscular Volume 100, Mean Corpuscular Hemoglobin 33, Mean Corpuscular Hemoglobin Concent 33, Red Cell Distribution Width 13.4, Platelet Count 244, Mean Platelet Volume 10.2, Neutrophils (%) (Auto) 53, Lymphocytes (%) (Auto) 33, Monocytes (%) (Auto) 12, Eosinophils (%) (Auto) 3, Basophils (%) (Auto) 0, Neutrophils # (Auto) 2.8, Lymphocytes # (Auto) 1.7, Monocytes # (Auto) 0.6, Eosi nophils # (Auto) 0.2, Basophils # (Auto) 0.0, Sodium Level 140, Potassium Level 4.1, Chloride Level 99, Carbon Dioxide Level 27, Anion Gap 14, Blood Urea Nitrogen 19, Creatinine 1.42, Estimat Glomerular Filtration Rate 36, BUN/Creatinine Ratio 13, Glucose Level 125, Calcium Level 9.0, Phosphorus Level 3.5, Magnesium Level 1.5 Imaging: Reviewed Imaging Films, Reviewed Imaging Report Discussion & Recommendations Discharge Planning: <30 minutes discharge planning Discharge Home Medications: Active Scripts Active Keflex (Cephalexin) 500 Mg Capsule 500 Mg PO TID Diltiazem HCl 30 Mg Tablet 30 Mg PO Q6HR Amiodarone HCl 200 Mg Tablet 400 Mg PO BID Eliquis (Apixaban) 5 Mg Tablet 5 Mg PO BID Reported Flonase Allergy Relief (Fluticasone Propionate) 9.9 Ml Wilcox.susp 2 Wilcox NS DAILY PRN Tylenol Extra Strength (Acetaminophen) 500 Mg Tablet 500-1,000 Mg PO Q4H PRN Symbicort 160-4.5 Mcg Inhaler (Budesonide/Formoterol Fumarate) 10.2 Gm Hfa.aer.ad 2 Puff IH BID PRN LAST FILLED 11-04-18 Ventolin Hfa (Albuterol Sulfate) 1 Puff Puff 2 Puff INH Q4H PRN 1 PUFF = 90 MCG Metformin HCl ER (Metformin HCl) 500 Mg Tab.er.24h 500 Mg PO HS Cyclobenzaprine HCl 10 Mg Tablet 10 Mg PO TID PRN Furosemide 40 Mg Tablet 40 Mg PO DAILY Amlodipine Besylate 10 Mg Tablet 10 Mg PO HS LAST FILLED #90 02-02-19 Oxycodone-Acetaminophen 10-325 (Oxycodone HCl/Acetaminophen) 1 Each Tablet 1 Tab PO TID Levocetirizine Dihydrochloride 5 Mg Tablet 5 Mg PO HS Dexilant (Dexlansoprazole) 60 Mg Cap.bp 60 Mg PO HS Montelukast Sodium 10 Mg Tablet 10 Mg PO HS Instructions to patient/family Please see electronic discharge instructions given to patient. Clinical Quality Measures DVT/VTE Risk/Contraindication: Risk Factor Score Per Nursin RFS Level Per Nursing on Admit: 4+=Very High HERMILA MCKEON DO 06/18/192118: Diagnosis/Chief Complaint Discharge Diagnosis (1) Atrial fibrillation with rapid ventricular response Status: Acute (2) RESPIRATORY FAILURE, UNSP, UNSP W HYPOXIA OR HYPERCAPNIA (3) Body mass index 30+ - obesity Onset Date: 09/29/2013 Status: Acute Discharge Summary Discharge Physical Exam Allergies: Coded Allergies: penicillin G (Verified Allergy, Unknown, 07/08/06) General Appearance: No Apparent Distress, WD/WN, Chronically ill, Obese Respiratory: Lungs Clear, Decreased Breath Sounds Neurologic/Psychiatric: Alert, Oriented x3 Hospital Course Was the Problem List Reviewed?: Yes Hospital course: Pt had an uneventful hospital course, she was admitted for A- FIB with RVR new onset, placed on oral anticoagulation, TE performed revealing no thrombosis so she was cardioverted, that was not successful, Pt was placed on Amiodarone drip for overnight and cardioverted again and that was successful. She was able to be discharged on Amiodarone, Cardizem and oral anticoagulation, she did meet criteria for home oxygen at night of 2 L so those orders were placed and will have close follow-up with [facility]. Discussion & Recommendations Discharge Planning: <30 minutes discharge planning Supervisory-Addendum Brief Verification & Attestation Participated in pt care: history, MDM, physical Personally performed: exam, history, MDM, supervision of care Care discussed with: Medical Student Procedures: n/a Results interpretation: Verified all documentation Verification and Attestation of Medical Student E/M Service A medical student performed and documented this service in my presence. I reviewed and verified all information documented by the medical student and made modifications to such information, when appropriate. I personally performed the physical exam and medical decision making. Hermila Mckeon, Jun 18, 2019,21:18 JANEY LOPEZ,MED STUDENT Jun 18, 2019 10:44 HERMILA SHERMAN DO Jun 18, 2019 21:19 POS
[2019-06-18] MEDS ORDERED: DILTIAZEM 30 MG (CARDIZEM) TAB PO SCH (12:00)
[2019-06-18] MEDS: cefTRIAXone FOR IV USE 1,000 MG in WATER (STERILE) FOR INJECTION 10 ML IV SCH (12:52)
[2019-06-18] MEDS: DILTIAZEM 125 MG/NS 100 ML IV SCH ×2 (12:53)
--- NOTE | 2019-06-18 13:41 | Anesthesia-General Post-Op ---
MAC Patient Condition Mental Status/LOC: Same as Preop Cardiovascular: Satisfactory Nausea/Vomiting: Absent Respiratory: Satisfactory Pain: Controlled Complications: Absent Post Op Complications Complications None Follow Up Care/Instructions Patient Instructions None needed. Anesthesiology Discharge Order Discharge Order Patient is doing well, no complaints, stable vital signs, no apparent adverse anesthesia problems. No complications reported per nursing. ADY CARRILLO CRNA Jun 18, 2019 13:41 POS
--- NOTE | 2019-06-18 13:53 | NUR ---
PROVIDED DRUG EDUCATION TO PATIENT ABOUT ELIQUIS AND AMIODARONE. DISCUSSED COMMON SIDE EFFECTS, FOR BOTH MEDICATIONS. PROVIDED AN ELIQUIS SAVINGS CARD AND RECOMMENDED PHARMACY AND PATIENT CONTACT INSURANCE ABOUT CURRENT COPAY FOR 2019 AND 2019.
[2019-06-18] MEDS: POLYETHYLENE GLYCOL 17 GM (MIRALAX) PACK PO PRN (14:46)
--- NOTE | 2019-06-18 15:26 | Physical Therapy Evaluation ---
PT Evaluation-General Medical Diagnosis Admission Date Jun 16, 2019 at 08:30 Medical Diagnosis: A-fib with RVR Onset Date: Jun 16, 2019 Therapy Diagnosis Therapy Diagnosis: debility Height/Weight Height (Feet): 5 Height (Inches): 0 Weight (Pounds): 335 Weight (Ounces): 7.0 Precautions Precautions/Isolations: Fall Prevention, Standard Precautions Referral Physician: Roseline Reason for Referral: Evaluation/Treatment Medical History Pertinent Medical History: Atrial Fib, Arthritis, DM, HTN Current History ER from [facility] clinic secondary to tachycardia and weakness Reviewed History: Yes Social History Home: Single Level Current Living Status: Other Family Entry Into Home: Stairs With Railing PT Steps Into Home: 1 Prior Prior Level of Function SCALE: Activities may be completed with or without assistive devices. 9-Obtrjhkopq-qbzbupy completes the activity by him/herself with no assistance from a helper. 5-Set-up or Clean-up Assistance-helper sets up or cleans up; patient completes activity. [place] assists only prior to or following the activity. 4-Supervision or Touching Assistance-helper provides verbal cues and/or touching/steadying and/or contact guard assistance as patient completes activity. Assistance may be provided throughout the activity or intermittently. 3-Partial/Moderate Assistance-helper does LESS THAN HALF the effort. [place] lifts, holds or supports trunk or limbs, but provides less than half the effort. 2-Substantial/Maximal Assistance-helper does MORE THAN HALF the effort. [place] lifts or holds trunk or limbs and provides more than half the effort. 4-Nsnvqryoq-ccnqok does ALL the effort. Patient does none of the effort to complete the activity. Or, the assistance of 2 or more helpers is required for the patient to complete the activity. If activity was not attempted, code reason: 7-Patient Refused. 9-Not Applicable-not attempted and the patient did not perform the activity before the current illness, exacerbation or injury. 10-Not Attempted due to Environmental Limitations-(lack of equipment, weather restraints, etc.). 88-Not Attempted due to Medical Conditions or Safety Concerns. Bed Mobility: 6 Transfers (B,C,W/C): 6 Gait: 6 Stairs: 6 Indoor Mobility (Ambulation): Independent Stairs: Independent Prior Devices Use: Other-see list below Prior Device Use: Quad cane PT Evaluation-Current Subjective Patient agrees to PT at this time. Reports she is ready to go home as soon as she can. Patient states she lives at home with 10 year old great granddaughter that she cares for. Pain Numeric Pain Scale: 0-No Pain Location: No Pain Reported Objective Patient Orientation: Normal For Age Attachments: SCD's ROM/Strength ROM Lower Extremities Limited d/t lymphedema Strength Lower Extremities Grossly 4/5 Integumentary/Posture Integumentary See nursing notes Bowel Incontinence: No Bladder Incontinence: Yes Posture WFL Neuromuscular (Tone, Coordination, Reflexes) Grossly intact Sensory Vision: Wears Glasses Hearing: Functional Transfers Roll Left to Right (QC): 6 Sit to Lying (QC): 4 Lying to Sitting/Side of Bed(Q: 6 Sit to Stand (QC): 6 Chair/Rqk-kz-Ffeor Xfer(QC): 6 Car Transfer (QC): 10 required assistance to lift LEs onto bed Gait Does the Patient Walk?: Yes Mode of Locomotion: Walk Anticipated Mode of Locomotion: Walk Walk 10 feet (QC): 6 Walk 50 ft with 2 Turns(QC): 6 Walk 150 ft (QC): 88 Walking 10ft/uneven surface-QC: 88 Distance: 100' Gait Assistive Device: FWW Comments/Gait Description Independent ambulation; FWW, small steps, slow pace Wheelchair Training Does the Pt Use a Wheelchair?: No Wheel 50 ft with 2 turns (QC): 9 Wheel 150 ft (QC): 9 Type of Wheelchair: Manual Stairs 1 Step (curb) (QC): 88 4 Steps (QC): 9 12 Steps (QC): 9 Balance Sitting Static: Normal Sitting Dynamic: Normal Standing Static: Normal Standing Dynamic: Normal Picking up an Object (QC): 88 Assessment/Needs Patient able to perform independent bed mobility to transfer from supine to s itting EOB. Patient stood with FWW and transferred to commode independently. Patient able to ambulate 100' with FWW at a slow pace with small steps but without difficulty. Patient required assistance to lift legs into bed upon return to room d/t bed height and lymphedema. Patient left in bed with HOB elevated and nursing present at conclusion of treatment. At this time, patient does not require skill physical therapy services d/t independence with ambulation and functional activities. Rehab Potential: Fair PT Longterm Goals [employer]ights Specialist Goals Roll Left & Right (QC): 6 Sit to Lying (QC): 6 Lying-Sitting on Side/Bed(QC): 6 Sit to Stand (QC): 6 Chair/Qym-nn-Ufycn Xfer(QC): 6 Toilet Transfer (QC): 6 Car Transfer (QC): 6 Does the Patient Walk: Yes Walk 10 feet (QC): 6 Walk 50ft with 2 Turns (QC): 6 Walk 150 ft (QC): 6 Walking 10ft on Uneven Surface: 6 1 Step (curb) (QC): 6 4 Steps (QC): 9 12 Steps (QC): 9 Picking up an Object (QC): 6 Does the Pt use WC or Scooter?: No Type: N/A Type: N/A PT Plan Treatment/Plan Treatment Plan: Discontinue PT Treatment Duration: Jun 26, 2019 Frequency: 6 times per week Time/GCodes Time In: 1410 Time Out: 1435 Total Billed Treatment Time: 25 Total Billed Treatment 1 visit EVModC 15min FA 10min FREDDY WILKINSON PT Jun 18, 2019 15:26 POS
--- NOTE | 2019-06-18 16:07 | NUR ---
Pt didn't qualify for Home oxygen. Her Oxygen sats didn't drop below 90% with exertion according to Respiratory Therapy. She will follow up with [facility].
--- NOTE | 2019-06-18 16:30 | NUR ---
[address] MCKEON RT RECOMMENDED 2 L NC HS. [address] MCKEON PT HOME PHARMACY HAD ALLERGY TO KEFLEX LISTED. DR MCKEON SAID TO CANCEL ANTIBIOTIC. SINCE PT HAD RECEIVED ROCEPHIN. [address] MCKEON PT DID NOT QUALIFY FOR NIGHT OXYGEN SINCE THEY DID NOT DO A OVERNIGHT OXYGEN STUDY. DR MCKEON WOULD LIKE PT TO FOLLOW UP SOON WITH [facility] TO ASSESS OXYGEN NEEDS. [address] MCKEON PHYSICAL THERAPY CLEARED PT FOR HOME. NURSE YENY OVERTON WITH PHARMACY AND PT HAS APPOINTMENT SET UP WITH PRIMARY AT [facility] SATURDAY.
--- NOTE | 2019-06-19 10:51 | Physician Query Clarification ---
PQ-Uncertain Diagnosis Admission/Discharge Admission Date: Jun 16, 2019 at 08:30 Discharge Date: Jun 18, 2019 at 16:40 The medical record reflects the following clinical scenario: History/Risk Factors: PAF, COPD, DM, HTN, MOB w/hypoventilation syndrome Clinical Findings: PH 7.35, PC02 60, P02 50, O2 sat 78, R 40, hypoxia Treatment: nasal cannula, Advair, Singulair Question: Is respiratory failure w/hypoxia a clinically valid diagnosis? respiratory failure w/hypoxia was documented in the DS under admit/chief complaint diagnoses with no further documentation in the medical record. Please document a response in Progress Note or Discharge Summary. 1. Yes, clinically valid, condition resolved. 2. No, condition ruled out. 3. Other, with explanation of clinical findings. 4. Undetermined, no explanation for clinical findings. PHYSICIAN RESPONSE Diagnosis clinically valid: Yes, Conditon resolved Please remember a lack of response to the above will prompt a phone page by CDI/Coding staff. In responding to this query, please exercise your independent professional judgment. The purpose of this communication is to more accurately reflect the complexity of your patients condition. The fact that a question is asked does not imply that any particular answer is desired or expected. Thank you for your timely response to this clarification. Requestors name: Rena THIS PHYSICIAN QUERY FORM IS A PERMANENT PART OF THE MEDICAL RECORD RENA RIVAS Jun 19, 2019 10:51 ILENE SHERMAN DO Jun 19, 2019 11:03 POS
--- NOTE | 2019-06-19 11:00 | Physician Query Clarification ---
PQ-CHF Specificity Admission Date: Jun 16, 2019 at 08:30 Discharge Date: Jun 18, 2019 at 16:40 The medical record reflects the following clinical scenario: History/Risk Factors: PAF, HTN, DM, COPD Clinical Findings: Cardiomegaly, ankle edema, tachycardia, hypoxia, BNP 239.9 Treatment: Lasix 40 mg PO Question: Can you further specify the acuity &/or type of CHF per the clinical indicators above? Please document a response in the Progress Notes or Discharge Summary. 1. Acuity: Acute, Chronic or Acute on Chronic 2. Type: Systolic, Diastolic or Systolic & Diastolic 3. Unspecified: CHF cannot be further specified regarding type or acuity 4. Other, with explanation of clinical findings 5. Clinically undetermined, no explanation for clinical findings PHYSICIAN RESPONSE Acuity: Other (list below) Type: Other (explain below) Other, clinical findings Elevated BNP, ankle edema is due to renal failure Echo showed normal EF Dilated left atrium is due to atrial fibrillation Please remember a lack of response to the above will prompt a phone page by CDI/Coding staff. In responding to this query, please exercise your independent professional judgment. The purpose of this communication is to more accurately reflect the complexity of your patients condition. The fact that a question is asked does not imply that any particular answer is desired or expected. Thank you for your timely response to this clarification. Requestors name: Rena THIS PHYSICIAN QUERY FORM IS A PERMANENT PART OF THE MEDICAL RECORD RENA RIVAS Jun 19, 2019 11:00 ANTONIETTA MACK MD Jun 19, 2019 11:44 POS
== END 2019-06-18 16:40 | disposition home or self-care (01) | DRG 308 ==
LOC: EDUNIT# 10:48 → ER 10:50 → ICU 14:30 → UNDOADMOB 14:30 → ICU 15:36 → INTOOBSV 06-16 08:30 → OBSVTOIN 06-16 08:30 → UNDODISIN 06-18 16:40
PROVIDERS: ADMIT Internal Medicine; ATTEND Internal Medicine
PROC: 5A2204Z Restoration of Cardiac Rhythm, Single (ICD-10-PCS; principal; 2019-06-17)
DX: I48.0 Paroxysmal atrial fibrillation (principal); J96.91 Respiratory failure, unspecified with hypoxia; I89.0 Lymphedema, not elsewhere classified; Z68.44 Body mass index [BMI] 60.0-69.9, adult; E66.2 Morbid (severe) obesity with alveolar hypoventilation; N39.0 Urinary tract infection, site not specified; N19 Unspecified kidney failure; J44.9 Chronic obstructive pulmonary disease, unspecified; E11.9 Type 2 diabetes mellitus without complications; I11.9 Hypertensive heart disease without heart failure; I51.7 Cardiomegaly; E78.00 Pure hypercholesterolemia, unspecified; M19.91 Primary osteoarthritis, unspecified site; I27.20 Pulmonary hypertension, unspecified; E83.42 Hypomagnesemia; I34.0 Nonrheumatic mitral (valve) insufficiency; B96.20 Unspecified Escherichia coli [E. coli] as the cause of diseases classified elsewhere; Z96.652 Presence of left artificial knee joint
CPT/HCPCS: 36415; 51702; 71045; 80048; 80053; 81000; 82805; 82962; 83735; 83880; 84100; 84484; 85025; 87077; 87088; 87186; 93005; 93306; 93312; 93320; 93325; 94640; 94761; 96365; 96366; 96372; G0378

== ENCOUNTER 2020-05-05 07:53 | Emergency (ER) | payer MEDICARE ==
[~2020-05-05] VITALS: Ht 149.8 cm; Wt 159.0 kg
[~2020-05-05 07:53] MED LIST changes: +ACET-2267 PO; +AMIO200T4 PO; +APIX5TAB PO; +BUDE10.2 IH; +CEPH-507 PO; +DESV25TA2 PO; +DILT30TA PO; +FLUT9.9S NS; +METF-865 PO; -MONT10TA24 PO; +MONT10TA26 PO; -OXYC-465 PO; +OXYC-556 PO; +RT-ALBUINH INH
[2020-05-05] MEDS ORDERED: FUROSEMIDE 40 MG/4 ML INJ (LASIX) IV STA (08:15)
--- NOTE | 2020-05-05 08:20 | ED General ---
General Stated Complaint: LEG PAIN Source of Information: Patient Exam Limitations: No Limitations History of Present Illness Date Seen by Provider: May 05, 2020 Time Seen by Provider: 08:02 Initial Comments Here with report of right leg pain and swelling and overall more swollen legs bilateral. She did fall yesterday and landed on her right knee and then on her back. She is on blood thinners. She does believe that she hit her head but did not lose consciousness. She is concerned about infection of the right leg. Also states that the legs have been swollen before and she required hospitalization and lots of Lasix. States that the right leg just gave out on her yesterday and it's making it difficult to walk today is that continues. [facility] 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 Denies contact with [facility]-, upper respiratory symptoms, cough or shortness of breath or fever. Timing/Duration: 24 Hours Severity: Moderate Associated Systoms: No Chest Pain, No Cough, No Fever/Chills, No Nausea/Vomiting, No Shortness of Air; Weakness Allergies and Home Medications Allergies Coded Allergies: penicillin G (Verified Allergy, Unknown, 07/08/06) Home Medications Acetaminophen 500 Mg Tablet, 500-1,000 MG PO Q4H PRN for PAIN-MILD (1-4), (Reported) Albuterol Sulfate 1 Puff Puff, 2 PUFF INH Q4H PRN for SHORTNESS OF BREATH, (Reported) 1 PUFF = 90 MCG Amiodarone HCl 200 Mg Tablet, 400 MG PO BID Prescribed by: ILENE MCKEON on 06/18/19 1017 Amlodipine Besylate 10 Mg Tablet, 10 MG PO HS, (Reported) LAST FILLED #90 02-02-19 Apixaban 5 Mg Tablet, 5 MG PO BID Prescribed by: ILENE MCKEON on 06/18/19 1017 Budesonide/Formoterol Fumarate 10.2 Gm Hfa.aer.ad, 2 PUFF IH BID PRN for SHORTNESS OF BREATH, (Reported) LAST FILLED 11-04-18 Cyclobenzaprine HCl 10 Mg Tablet, 10 MG PO TID PRN for MUSCLE SPASMS, (Reported) Dexlansoprazole 60 Mg Handy.bp, 60 MG PO HS, (Reported) Diltiazem HCl 30 Mg Tablet, 30 MG PO Q6HR Prescribed by: ILENE MCKEON on 06/18/19 1017 Fluticasone Propionate 9.9 Ml [place].susp, 2 SPRAY NS DAILY PRN for ALLERGIES, (Reported) Furosemide 40 Mg Tablet, 40 MG PO DAILY, (Reported) Levocetirizine Dihydrochloride 5 Mg Tablet, 5 MG PO HS, (Reported) Metformin HCl 500 Mg Tab.er.24h, 500 MG PO HS, (Reported) Montelukast Sodium 10 Mg Tablet, 10 MG PO HS, (Reported) Oxycodone HCl/Acetaminophen 1 Each Tablet, 1 TAB PO TID, (Reported) Patient Home Medication List Home Medication List Reviewed: Yes Review of Systems Review of Systems Constitutional: see HPI; No chills; fever EENTM: no symptoms reported Respiratory: no symptoms reported Cardiovascular: edema, Hx of Intervention Gastrointestinal: No abdominal pain, No nausea, No vomiting Genitourinary: No dysuria, No frequency : No Musculoskeletal: joint pain, muscle pain Skin: change in color, lesions Psychiatric/Neurological: Denies Headache All Other Systems Reviewed Negative Unless Noted: Yes Past Zzitrqh-Hbfxze-Lfvlzj Hx Past Med/Social Hx: Reviewed Nursing Past Med/Soc Hx Patient Social History Alcohol Use: Denies Use Recreational Drug Use: No Smoking Status: Never a Smoker Recent Foreign Travel: No Contact w/Someone Who Travel: No Recent Hopitalizations: Yes (GB REMOVED ABCESS REMOVED FROM STOMACH) Immunizations Up To Date Date of Pneumonia Vaccine: Jul 07, 2014 Date of Influenza Vaccine: May 27, 2019 Seasonal Allergies Seasonal Allergies: Yes Past Medical History Surgeries: Yes (RT HAND, L TKR ) Appendectomy, Gallbladder, Orthopedic Respiratory: Yes Asthma, Pneumonia, COPD Cardiac: Yes Chronic Edema/Swelling, High Cholesterol, Hypertension Neurological: No Reproductive Disorders: No Gastrointestinal: Yes Gall Bladder Disease Musculoskeletal: Yes Arthritis Endocrine: No ("PRE-DIABETIC") Diabetes, Non-Insulin dep Cancer: No Psychosocial: No Integumentary: Yes (LOWER LEGS/FEET) Blood Disorders: No Family Medical History Reviewed Nursing Family Hx Cancer, Diabetes, Hypertension Physical Exam-Suspected Sepsis Physical Exam Vital Signs Vital Signs - First Documented 05/05/20 07:58 Temp 36.2 Pulse 74 Resp 18 B/P (MAP) 112/62 (79) Pulse Ox 96 O2 Delivery Room Air Capillary Refill : Height, Weight, BMI Height: 5'0" Weight: 335lbs. 7.0oz. 152.837503wh; 69.00 BMI Method:Stated General Appearance: No Apparent Distress, Chronically ill, Obese HEENT: PERRL/EOMI, Pharynx Normal Neck: Non Tender, Supple Respiratory: Lungs Clear, Normal Breath Sounds Cardiovascular: Regular Rate, Rhythm, No Murmur Gastrointestinal: Non Tender, Soft Extremity: Pedal Edema (4+ to the level of his bilateral but right is greater than left. ), Pelvis Stable, Swelling (right greater than left), Other (warm laying on right greater than left) Neurologic/Psychiatric: Alert, Oriented x3 Skin: warm/dry, other (venous stasis blisters and ulcers to bilateral legs with right greater than left. Moderate change in color to bilateral lower legs but redness seems to extend higher on the right leg. Redness goes to or slightly above the knee on the right. Left leg shows venous stasis color changes.) Focused Exam Lactate Level 05/05/20 08:18: Lactic Acid Level 1.76 Lactic Acid Level Laboratory Tests Test 05/05/20 08:18 Lactic Acid Level 1.76 MMOL/L (0.50-2.00) Progress/Results/Core Measures Suspected Sepsis SIRS Temperature: Pulse: Respiratory Rate: Laboratory Tests 05/05/20 08:18: White Blood Count 7.0 Blood Pressure / Mean: 05/05/20 08:18: Lactic Acid Level 1.76 Laboratory Tests 05/05/20 08:18: Creatinine 2.11H, INR Comment 1.6H, Platelet Count 284, Total Bilirubin 0.7 Results/Orders Lab Results Laboratory Tests Test 05/05/20 08:18 05/05/20 08:32 Range/Units White Blood Count 7.0 4.3-11.0 10^3/uL Red Blood Count 3.96 3.80-5.11 10^6/uL Hemoglobin 12.8 11.5-16.0 g/dL Hematocrit 40 35-52 % Mean Corpuscular Volume 100 H 80-99 fL Mean Corpuscular Hemoglobin 32 25-34 pg Mean Corpuscular Hemoglobin Concent 32 32-36 g/dL Red Cell Distribution Width 14.1 10.0-14.5 % Platelet Count 284 130-400 10^3/uL Mean Platelet Volume 11.0 9.0-12.2 fL Immature Granulocyte % (Auto) 0 % Neutrophils (%) (Auto) 73 42-75 % Lymphocytes (%) (Auto) 16 12-44 % Monocytes (%) (Auto) 10 0-12 % Eosinophils (%) (Auto) 1 0-10 % Basophils (%) (Auto) 0 0-10 % Neutrophils # (Auto) 5.1 1.8-7.8 10^3/uL Lymphocytes # (Auto) 1.1 1.0-4.0 10^3/uL Monocytes # (Auto) 0.7 0.0-1.0 10^3/uL Eosinophils # (Auto) 0.1 0.0-0.3 10^3/uL Basophils # (Auto) 0.0 0.0-0.1 10^3/uL Immature Granulocyte # (Auto) 0.0 0.0-0.1 10^3/uL Prothrombin Time 19.0 H 12.2-14.7 SEC INR Comment 1.6 H 0.8-1.4 Activated Partial Thromboplast Time 37 H 24-35 SEC Sodium Level 137 135-145 MMOL/L Potassium Level 4.3 3.6-5.0 MMOL/L Chloride Level 98 98-107 MMOL/L Carbon Dioxide Level 25 21-32 MMOL/L Anion Gap 14 5-14 MMOL/L Blood Urea Nitrogen 21 H 7-18 MG/DL Creatinine 2.11 H 0.60-1.30 MG/DL Estimat Glomerular Filtration Rate 23 BUN/Creatinine Ratio 10 Glucose Level 121 H 70-105 MG/DL Lactic Acid Level 1.76 0.50-2.00 MMOL/L Calcium Level 9.2 8.5-10.1 MG/DL Corrected Calcium 9.2 8.5-10.1 MG/DL Total Bilirubin 0.7 0.1-1.0 MG/DL Aspartate Amino Transf (AST/SGOT) 62 H 5-34 U/L Alanine Aminotransferase (ALT/SGPT) 20 0-55 U/L Alkaline Phosphatase 105 40-136 U/L Troponin I < 0.028 <0.028 NG/ML B-Type Natriuretic Peptide 48.1 <100.0 PG/ML Total Protein 8.8 H 6.4-8.2 GM/DL Albumin 4.0 3.2-4.5 GM/DL Urine Color YELLOW Urine Clarity SL CLOUDY Urine pH 5.5 5-9 Urine Specific [place] 1.020 1.016-1.022 Urine Protein TRACE H NEGATIVE Urine Glucose (UA) NEGATIVE NEGATIVE Urine Ketones TRACE H NEGATIVE Urine Nitrite NEGATIVE NEGATIVE Urine Bilirubin 1+ H NEGATIVE Urine Urobilinogen 0.2 < = 1.0 MG/DL Urine Leukocyte Esterase 1+ H NEGATIVE Urine RBC (Auto) 2+ H NEGATIVE Urine RBC 2-5 H /HPF Urine WBC 25-50 H /HPF Urine Squamous Epithelial Cells 2-5 /HPF Urine Crystals NONE /LPF Urine Bacteria LARGE H /HPF Urine Casts NONE /LPF Urine Mucus NEGATIVE /LPF Urine Culture Indicated CULTURE PENDING My Orders Orders - CAS MCCURDY MD Cbc With Automated Diff (05/05/20 08:15) Comprehensive Metabolic Panel (05/05/20 08:15) Blood Culture (05/05/20 08:15) Sputum Culture (05/05/20 08:15) Urinalysis (05/05/20 08:15) Urine Culture (05/05/20 08:15) Protime With Inr (05/05/20 08:15) Partial Thromboplastin Time (05/05/20 08:15) Chest 1 View, Ap/Pa Only (05/05/20 08:15) Ed Iv/Invasive Line Start (05/05/20 08:15) Troponin I (05/05/20 08:15) Vital Signs Adult Sepsis Patie Q15M (05/05/20 08:15) O2 (05/05/20 08:15) Remove Rings In Anticipation O (05/05/20 08:15) Lactic Acid Analyzer (05/05/20 08:15) BNP (05/05/20 08:15) Catheter(Urinary) Insert & Ass 03,15 (05/05/20 08:15) Furosemide Injection (Lasix Injection) (05/05/20 08:15) Knee, Right, 3 Views (05/05/20 08:18) Ct Head Wo (05/05/20 08:18) Fentanyl Injection (Sublimaze Injection (05/05/20 10:50) Ceftriaxone For Iv Use (Rocephin For I (05/05/20 11:34) Ed Iv/Invasive Line Start (05/05/20 11:38) Ns Iv 500 Ml (Sodium Chloride 0.9%) (05/05/20 11:38) Medications Given in ED Current Medications Medications Dose Ordered Sig/Lavinia Route Start Time Stop Time Status Last Admin Dose Admin Sodium Chloride 500 ml @ 0 mls/hr Q0M ONCE IV 05/05/20 11:38 05/05/20 11:39 DC 05/05/20 11:59 500 MLS/HR Vital Signs/I&O 05/05/20 07:58 Temp 36.2 Pulse 74 Resp 18 B/P (MAP) 112/62 (79) Pulse Ox 96 O2 Delivery Room Air Capillary Refill : Progress Note : Progress Note Seen and evaluated. IV, labs, UA, chest x-ray, CT head, x-ray right knee and Carney catheter ordered. Lasix 40 mg IV ordered. Monitor patient. 1130 I did discuss the case with Dr. Mckeon. Patient does have urinary tract infection. She can except the patient at [facility] as we have no bed availability here. She has requested that we have cardiology view on the case. I did discuss the case with Dr. Moran at 1134. He thinks this is more lymphedema and not anasarca with renal dysfunction. He is recommending normal saline 500 mL bolus and treatment for lymphedema including wrap and elevation and agrees with hospitalization. He is available by phone consults to Dr. Mckeon. I rediscussed the case with Dr. Mckeon at 1139 and she accepts patient in transfer to [facility] and is working on a bed over there. All of this was discussed with the patient who agrees with the plan. Rocephin 1 g IV ordered given. EKG done which does confirm sinus rhythm ECG Initial ECG Impression Date: May 05, 2020 Initial ECG Impression Time: 11:48 Initial ECG Rate: 65 Comment Sinus rhythm with artifact. No evidence of ST elevation UT. Interpreted by me. Change from previous in May 2019 which was atrial fibrillation. Diagnostic Imaging Diagonstic Imaging: CT Plain Films/CT/US/NM/MRI: head Comments [facility]. [place], [place] NAME: ELINOR PAIGE [facility] REC#: [id number] PT STATUS: REG ER : 1940 PHYSICIAN: CAS MCCURDY MD ADMIT DATE: 05/05/20/ER Signed Date of Exam:05/05/20 CT HEAD WO PROCEDURE: CT head without contrast. TECHNIQUE: Multiple contiguous axial images were obtained through the brain without the use of intravenous contrast. Auto Exposure Controls were utilized during the CT exam to meet ALARA standards for radiation dose reduction. INDICATION: Trauma, fall. COMPARISON: CT head from 10/01/2014 FINDINGS: No hyperdense hemorrhage or space-occupying mass. No hydrocephalus or midline shift. The basilar cisterns are normal. Focal encephalomalacia in the left frontal region is likely from old trauma or infarct.. Periventricular white matter hypoattenuation is compatible with chronic microvascular ischemic disease. Right mastoid effusion. No temporal bone fracture. Paranasal sinuses are normal. No focal osseous abnormality of the calvarium. IMPRESSION: 1. No acute intracranial process. 2. Right mastoid effusion without skull fracture. No middle ear fluid. Dictated by: Dictated on workstation # [id number] Dict: 05/05/20 0940 Trans: 05/05/20 0952 LARRY [id number] Interpreted by: SB HARPER MD Electronically signed by: SB HARPER MD 05/05/20 0952 Diagonstic Imaging: Xray Plain Films/CT/US/NM/MRI: chest Comments [facility] [place] NAME: ELINOR PAIGE [facility] REC#: [id number] PT STATUS: REG ER : 1940 PHYSICIAN: CAS MCCURDY MD ADMIT DATE: 05/05/20/ER Draft Date of Exam:05/05/20 CHEST 1 VIEW, AP/PA ONLY INDICATION: Shortness of breath. COMPARISON: 06/18/2019. FINDINGS: Retrocardiac hernia noted. The upper limits heart size similar to previous studies. No pulmonary edema or focal pneumonia. No effusion or pneumothorax. IMPRESSION: Chronic findings. Dictated on workstation # [id number] Dict: 05/05/20 1002 Trans: 05/05/20 1007 SA [id number] Interpreted by: JOAO NEWMAN Electronically signed by: Diagonstic Imaging: Xray Plain Films/CT/US/NM/MRI: knee Comments [facility]. [place] [place] NAME: ELINOR PAIGE [facility] REC#: [id number] PT STATUS: REG ER : 1940 PHYSICIAN: CAS MCCURDY MD ADMIT DATE: 05/05/20/ER Draft Date of Exam:05/05/20 KNEE, RIGHT, 3 VIEWS INDICATION: Knee pain 3 radiographs of the right knee are performed. There is severe tricompartmental osteoarthritis. Lateral view showed no evidence for joint effusion. There was no loose body appreciable. No acute appearing articular incongruity. There is some calcifications of the articular cartilage. IMPRESSION: Advanced chronic degenerative change without an appreciable fracture or obvious joint effusion. Dictated on workstation # [id number] Dict: 05/05/20 1100 Trans: 05/05/20 1103 [facility] [id number] Interpreted by: JOAO NEWMAN Electronically signed by: Departure Impression Primary Impression: Lymphedema Additional Impressions: Urinary tract infection Qualified Codes: N30.00 - Acute cystitis without hematuria Physical deconditioning Contusion of right knee Qualified Codes: S80.01XA - Contusion of right knee, initial encounter Disposition: XFER [facility]-TRM HOSP Condition: Stable Transfer Transfer Reason: Diversion (bed capacity exceeded) Time Spoke to Accepting Phy: 11:39 Transfer Facility: [place], [place], Dr. Mckeon accepted Method of Transfer: EMS Departure-Patient Inst. Referrals: [facility] (PCP/Family) Primary Care Physician CAS MCCURDY MD May 05, 2020 08:20
[2020-05-05 08:35] LABS: BASOPHILS % (AUTO) 0 % (0-10); EOSINOPHILS # (AUTO) 0.1 10^3/uL (0.0-0.3); EOSINOPHILS % (AUTO) 1 % (0-10); HEMATOCRIT 40 % (35-52); HEMOGLOBIN 12.8 g/dL (11.5-16.0); LYMPHOCYTES # (AUTO) 1.1 10^3/uL (1.0-4.0); LYMPHOCYTES % (AUTO) 16 % (12-44); MEAN CORPUSCULAR HEMOGLOBIN 32 pg (25-34); MEAN CORPUSCULAR HGB CONC 32 g/dL (32-36); MEAN CORPUSCULAR VOLUME 100 fL (80-99); MONOCYTES # (AUTO) 0.7 10^3/uL (0.0-1.0); MONOCYTES % (AUTO) 10 % (0-12); NEUTROPHILS # (AUTO) 5.1 10^3/uL (1.8-7.8); NEUTROPHILS % (AUTO) 73 % (42-75); PLATELET COUNT 284 10^3/uL (130-400)
[2020-05-05 08:46] LABS: BILIRUBIN,URINE 1+ (NEGATIVE); CLARITY,URINE SL CLOUDY; COLOR,URINE YELLOW; GLUCOSE, URINE (UA) NEGATIVE (NEGATIVE); KETONES,URINE TRACE (NEGATIVE); LEUKOCYTE ESTERASE ,URINE 1+ (NEGATIVE); NITRITE,URINE NEGATIVE (NEGATIVE); PH,URINE 5.5 (5-9); PROTEIN,URINE TRACE (NEGATIVE)
[2020-05-05 08:46] LABS: CHLORIDE 98 MMOL/L (98-107); POTASSIUM 4.3 MMOL/L (3.6-5.0); SODIUM 137 MMOL/L (135-145)
[2020-05-05 08:48] LABS: CALCIUM 9.2 MG/DL (8.5-10.1)
[2020-05-05 08:49] LABS: GLUCOSE 121 MG/DL (70-105); TOTAL PROTEIN 8.8 GM/DL (6.4-8.2)
[2020-05-05 08:50] LABS: CARBON DIOXIDE 25 MMOL/L (21-32)
[2020-05-05 08:51] LABS: BILIRUBIN,TOTAL 0.7 MG/DL (0.1-1.0); INR 1.6 (0.8-1.4)
[2020-05-05 08:52] LABS: ALKALINE PHOSPHATASE 105 U/L (40-136); CREATININE SERUM 2.11 MG/DL (0.60-1.30); GFR ESTIMATED 23
[2020-05-05 08:54] LABS: BUN/CREATININE RATIO 10
[2020-05-05 08:55] LABS: ALANINE AMINOTRANSFERASE 20 U/L (0-55)
[2020-05-05 09:01] LABS: BACTERIA,URINE LARGE /HPF; WBC,URINE 25-50 /HPF
--- NOTE | 2020-05-05 09:44 | Diagnostic Imaging Report ---
PROCEDURE: CT head without contrast. TECHNIQUE: Multiple contiguous axial images were obtained through the brain without the use of intravenous contrast. Auto Exposure Controls were utilized during the CT exam to meet ALARA standards for radiation dose reduction. INDICATION: Trauma, fall. COMPARISON: CT head from 10/01/2014 FINDINGS: No hyperdense hemorrhage or space-occupying mass. No hydrocephalus or midline shift. The basilar cisterns are normal. Focal encephalomalacia in the left frontal region is likely from old trauma or infarct.. Periventricular white matter hypoattenuation is compatible with chronic microvascular ischemic disease. Right mastoid effusion. No temporal bone fracture. Paranasal sinuses are normal. No focal osseous abnormality of the calvarium. IMPRESSION: 1. No acute intracranial process. 2. Right mastoid effusion without skull fracture. No middle ear fluid. Dictated by: Dictated on workstation # [id number]
--- NOTE | 2020-05-05 10:07 | Diagnostic Imaging Report ---
INDICATION: Shortness of breath. COMPARISON: 06/18/2019. FINDINGS: Retrocardiac hernia noted. The upper limits heart size similar to previous studies. No pulmonary edema or focal pneumonia. No effusion or pneumothorax. IMPRESSION: Chronic findings. Dictated by: Dictated on workstation # [id number]
--- NOTE | 2020-05-05 10:13 | NUR ---
DAUGHTER CALLED AND UPDATE GIVEN
[2020-05-05] MEDS ORDERED: fentaNYL INJECTION 100 MCG/2 ML AMP IVP STA (10:50)
--- NOTE | 2020-05-05 11:03 | Diagnostic Imaging Report ---
INDICATION: Knee pain 3 radiographs of the right knee are performed. There is severe tricompartmental osteoarthritis. Lateral view showed no evidence for joint effusion. There was no loose body appreciable. No acute appearing articular incongruity. There is some calcifications of the articular cartilage. IMPRESSION: Advanced chronic degenerative change without an appreciable fracture or obvious joint effusion. Dictated by: Dictated on workstation # [id number]
[2020-05-05] MEDS ORDERED: cefTRIAXone FOR IV USE 1,000 MG in WATER (STERILE) FOR INJECTION 10 ML IV STA (11:34)
[2020-05-05] MEDS ORDERED: NS IV 500 ML 500 ML IV ONE (11:38)
--- NOTE | 2020-05-05 12:22 | NUR ---
FOOD TRAY ORDERED.
--- NOTE | 2020-05-05 12:25 | NUR ---
PATIENT WILL CALL FAMILY AND LET THEM KNOW SHE IS BEING TRANSFERED TO [facility] DUE TO NO BED'S HERE
--- NOTE | 2020-05-05 12:47 | NUR ---
1300 cc output from abreu
--- NOTE | 2020-05-05 12:55 | NUR ---
CALLED TO GIVE REPORT TO HOSPITAL WILL CALL BACK.
--- NOTE | 2020-05-05 13:17 | NUR ---
EMS CALLED FOR TRANSFER
--- NOTE | 2020-05-05 14:04 | NUR ---
МАРИЯ PURI CALLED AND WANTED TO KNOW ABOUT PATIENT STATES SHE IS HER POA. PATIENT NEVER STATED SHE HAS POA. HAVE BEEN IN CONTACT WITH HER DAUGHTER AND GRNADAUGHTER.WHO NEVER SATES SHE HAD POA. CALLED [facility] ON PATIENT TRANSFER INFORMED SHE WAS ON HER WAY TO [place]. AND THAT HER HER KNOWLEDGE МАРИЯ PURI IS NOT PATIENT POA. SHE WILL CALL HER AND TALK WITH HER.
[2020-05-05 14:07] VITALS: BP 116/64
== END 2020-05-05 14:04 | disposition short-term general hospital (02) ==
LOC: EDUNIT# 07:53 → ER 07:54
DX: S80.01XA Contusion of right knee, initial encounter (principal); N39.0 Urinary tract infection, site not specified; I89.0 Lymphedema, not elsewhere classified; R53.81 Other malaise; J44.9 Chronic obstructive pulmonary disease, unspecified; I10 Essential (primary) hypertension; E78.00 Pure hypercholesterolemia, unspecified; E11.9 Type 2 diabetes mellitus without complications; Z88.0 Allergy status to penicillin; Z96.652 Presence of left artificial knee joint; Z79.01 Long term (current) use of anticoagulants; Z79.51 Long term (current) use of inhaled steroids; Z79.84 Long term (current) use of oral hypoglycemic drugs; W19.XXXA Unspecified fall, initial encounter
CPT/HCPCS: 36415; 51702; 70450; 71045; 73562; 80053; 81000; 83605; 83880; 84484; 85025; 85610; 85730; 87040; 87077; 87088; 87186; 93005

== ENCOUNTER → 2020-07-07 | Outpatient (CLI) | payer MEDICARE ==
[~2020-07-07] MED LIST changes: -AMIO200T4 PO; +AMIO200T6 PO; +AMLO-251 PO; -AMLO10TA7 PO; -MONT10TA26 PO; +MONT10TA97 PO
== END ==
LOC: RAD 08:46
PROVIDERS: ATTEND Nurse Practitioner Community Health
DX: M25.561 Pain in right knee (principal); Z53.8 Procedure and treatment not carried out for other reasons

== ENCOUNTER 2020-07-25 07:59 | Inpatient (IN) | payer MEDICARE ==
[~2020-07-25] VITALS: Ht 165 cm; Wt 128.0 kg
[2020-07-25] MEDS ORDERED: LACTATED RINGERS 1,000 ML IV ONE (08:15)
[2020-07-25 08:38] LABS: CLARITY,URINE SL CLOUDY; COLOR,URINE AMBER; GLUCOSE, URINE (UA) NEGATIVE (NEGATIVE); KETONES,URINE TRACE (NEGATIVE); LEUKOCYTE ESTERASE ,URINE 1+ (NEGATIVE); NITRITE,URINE NEGATIVE (NEGATIVE); PROTEIN,URINE 1+ (NEGATIVE)
[2020-07-25 08:59] LABS: BILIRUBIN,URINE 2+ (NEGATIVE)
[2020-07-25 09:00] LABS: BACTERIA,URINE LARGE /HPF; RBC,URINE >100 /HPF
[2020-07-25 09:26] LABS: BASOPHILS % (AUTO) 0 % (0-10); EOSINOPHILS % (AUTO) 0 % (0-10); HEMATOCRIT 34 % (35-52); HEMOGLOBIN 11.8 g/dL (11.5-16.0); LYMPHOCYTES # (AUTO) 0.5 10^3/uL (1.0-4.0); LYMPHOCYTES % (AUTO) 7 % (12-44); MEAN CORPUSCULAR HEMOGLOBIN 33 pg (25-34); MEAN CORPUSCULAR HGB CONC 35 g/dL (32-36); MEAN CORPUSCULAR VOLUME 94 fL (80-99); MEAN PLATELET VOLUME 11.1 fL (9.0-12.2); MONOCYTES # (AUTO) 0.5 10^3/uL (0.0-1.0); MONOCYTES % (AUTO) 6 % (0-12); NEUTROPHILS # (AUTO) 6.4 10^3/uL (1.8-7.8); NEUTROPHILS % (AUTO) 86 % (42-75); PLATELET COUNT 312 10^3/uL (130-400); WHITE BLOOD COUNT 7.4 10^3/uL (4.3-11.0)
--- NOTE | 2020-07-25 09:35 | ED General ---
General Chief Complaint: Respiratory Problems Stated Complaint: R/O COVID Nursing Triage Note: ARRIVED VIA EMS FROM THE [facility] STAFF REPORTS LOW OXYGEN LEVELS, DIARRHEA, TMEP, AND ALTERED MENTAL STATUS. Nursing Sepsis Screen: Possible Severe Sepsis Risk Source of Information: Patient, EMS, Family, [facility] Records Exam Limitations: No Limitations History of Present Illness Date Seen by Provider: Jul 25, 2020 Time Seen by Provider: 08:01 Initial Comments Patient presents via EMS from [facility] with hypoxia and profound diarrhea. She is lethargic. She has had diarrhea through the weekend. She is requiring nasal cannula oxygen support. She is borderline hypotensive at this time. Family reports a significant decline in the last several months after having an admission at [facility] and also having a fall resulting in leg injury and preventing weightbearing. She has been trying to obtain an MRI for further evaluation of the leg injury. She has not been eating or drinking well and family reports she seems depressed. Allergies and Home Medications Allergies Coded Allergies: penicillin G (Verified Allergy, Unknown, 07/08/06) Home Medications Acetaminophen 500 Mg Tablet, 500-1,000 MG PO Q4H PRN for PAIN-MILD (1-4), (Reported) Albuterol Sulfate 1 Puff Puff, 2 PUFF INH Q4H PRN for SHORTNESS OF BREATH, (Reported) 1 PUFF = 90 MCG Amiodarone HCl 200 Mg Tablet, 400 MG PO BID Prescribed by: ILENE MCKEON on 06/18/19 1017 Amlodipine Besylate 10 Mg Tablet, 10 MG PO HS, (Reported) LAST FILLED #90 02-02-19 Apixaban 5 Mg Tablet, 5 MG PO BID Prescribed by: ILENE MCKEON on 06/18/19 1017 Budesonide/Formoterol Fumarate 10.2 Gm Hfa.aer.ad, 2 PUFF IH BID PRN for SHORTNESS OF BREATH, (Reported) LAST FILLED 11-04-18 Cyclobenzaprine HCl 10 Mg Tablet, 10 MG PO TID PRN for MUSCLE SPASMS, (Reported) Dexlansoprazole 60 Mg Handy.bp, 60 MG PO HS, (Reported) Diltiazem HCl 30 Mg Tablet, 30 MG PO Q6HR Prescribed by: ILENE MCKEON on 06/18/19 1017 Fluticasone Propionate 9.9 Ml [place].susp, 2 SPRAY NS DAILY PRN for ALLERGIES, (Reported) Furosemide 40 Mg Tablet, 40 MG PO DAILY, (Reported) Levocetirizine Dihydrochloride 5 Mg Tablet, 5 MG PO HS, (Reported) Metformin HCl 500 Mg Tab.er.24h, 500 MG PO HS, (Reported) Montelukast Sodium 10 Mg Tablet, 10 MG PO HS, (Reported) Oxycodone HCl/Acetaminophen 1 Each Tablet, 1 TAB PO TID, (Reported) Patient Home Medication List Home Medication List Reviewed: Yes Review of Systems Review of Systems Constitutional: no symptoms reported EENTM: no symptoms reported Respiratory: see HPI Cardiovascular: see HPI Gastrointestinal: see HPI Genitourinary: no symptoms reported Musculoskeletal: no symptoms reported Skin: no symptoms reported Psychiatric/Neurological: See HPI Hematologic/Lymphatic: No Symptoms Reported Immunological/Allergic: no symptoms reported Past Ocdcity-Ctgyxh-Mfjwjt Hx Past Med/Social Hx: Reviewed Nursing Past Med/Soc Hx Patient Social History Recent Foreign Travel: No Contact w/Someone Who Travel: No Recent Infectious Disease Expo: No Recent Hopitalizations: Yes (GB REMOVED ABCESS REMOVED FROM STOMACH) Immunizations Up To Date Date of Pneumonia Vaccine: Jul 07, 2014 Date of Influenza Vaccine: May 27, 2019 Seasonal Allergies Seasonal Allergies: Yes Past Medical History Surgeries: Yes (RT HAND, L TKR ) Appendectomy, Gallbladder, Orthopedic Respiratory: Yes Asthma, Pneumonia, COPD Cardiac: Yes Atrial Fibrillation, Chronic Edema/Swelling, High Cholesterol, Hypertension Neurological: No : No Reproductive Disorders: No Genitourinary: No Gastrointestinal: Yes Gall Bladder Disease Musculoskeletal: Yes Arthritis Endocrine: No ("PRE-DIABETIC") Diabetes, Non-Insulin dep Cancer: No Psychosocial: No Integumentary: Yes (LOWER LEGS/FEET) Blood Disorders: No Family Medical History Cancer, Diabetes, Hypertension Physical Exam-Suspected Sepsis Physical Exam Vital Signs Vital Signs - First Documented 07/25/20 07:59 Temp 37.0 Pulse 92 Resp 16 B/P (MAP) 90/59 (69) Pulse Ox 91 O2 Delivery Nasal Cannula O2 Flow Rate 4.00 Capillary Refill : Less Than 3 Seconds Blood Pressure Mean: 69 Height, Weight, BMI Height: 5'0" Weight: 335lbs. 7.0oz. [id number]; 49.00 BMI Method:Stated General Appearance: No Apparent Distress, WD/WN, Obese, Other (Lethargic) HEENT: PERRL/EOMI, Normal ENT Inspection, Other (Oropharynx very dry) Neck: Normal Inspection Respiratory: Lungs Clear, Normal Breath Sounds, No Accessory Muscle Use Cardiovascular: Regular Rate, Rhythm, No Edema, No Murmur Gastrointestinal: Normal Bowel Sounds, Soft, Tenderness (Mild, generalized) Extremity: Normal Inspection, No Pedal Edema Neurologic/Psychiatric: Other (Lethargic, mumbling speech with some coherent words, follows some commands, moves all 4 extremities, responsive to voice and touch) Skin: normal color, warm/dry Focused Exam Lactate Level 07/25/20 09:13: Lactic Acid Level 1.73 07/25/20 17:00: Lactic Acid Level 1.10 Lactic Acid Level Procedures/Interventions Lumen: triple Central Line Procedure: betadine prep, sterile drapes applied, sterile dressing applied Position: internal jugular (R) Anesthesia: Lidocaine Volume Anesthetic (ccs): 3 Complications: none Post Position: sutured Patient was not able to communicate clearly enough for consent. Verbal consent was obtained from Gayle patient's DPIMANI. Right IJ line was placed by this provider under ultrasound guidance without complications. Progress/Results/Core Measures Suspected Sepsis Recent Fever Within 48 Hours: Yes Infection Criteria Present: Suspected New Infection New/Unexplained Altered Menta: Yes Sepsis Screen: Possible Severe Sepsis Risk SIRS Temperature: Pulse: 92 Respiratory Rate: 16 Laboratory Tests 07/25/20 09:13: White Blood Count 7.4 07/26/20 03:00: White Blood Count 8.0 Blood Pressure 90 /59 Mean: 69 07/25/20 09:13: Lactic Acid Level 1.73 07/25/20 17:00: Lactic Acid Level 1.10 Laboratory Tests 07/25/20 09:13: Creatinine 2.77H, INR Comment 2.8H, Platelet Count 312, Total Bilirubin 0.6 07/25/20 17:00: Creatinine 2.54H 07/26/20 03:00: Creatinine 2.15H, Platelet Count 284 Results/Orders Lab Results Laboratory Tests Test 07/25/20 08:24 07/25/20 09:13 07/25/20 09:15 07/25/20 17:00 Range/Units Urine Color GABBI H Urine Clarity SL CLOUDY Urine pH 6.0 5-9 Urine Specific [place] 1.015 L 1.016-1.022 Urine Protein 1+ H NEGATIVE Urine Glucose (UA) NEGATIVE NEGATIVE Urine Ketones TRACE H NEGATIVE Urine Nitrite NEGATIVE NEGATIVE Urine Bilirubin 2+ H NEGATIVE Urine Urobilinogen 1.0 < = 1.0 MG/DL Urine Leukocyte Esterase 1+ H NEGATIVE Urine RBC (Auto) 3+ H NEGATIVE Urine RBC >100 H /HPF Urine WBC 10-25 H /HPF Urine Squamous Epithelial Cells 5-10 /HPF Urine Crystals NONE /LPF Urine Bacteria LARGE H /HPF Urine Casts NONE /LPF Urine Mucus NEGATIVE /LPF Urine Culture Indicated YES Coronavirus (COVID-19)(PCR) Negative Negative Coronavirus 2018 (CLIVE) Negative Negative White Blood Count 7.4 4.3-11.0 10^3/uL Red Blood Count 3.60 L 3.80-5.11 10^6/uL Hemoglobin 11.8 11.5-16.0 g/dL Hematocrit 34 L 35-52 % Mean Corpuscular Volume 94 80-99 fL Mean Corpuscular Hemoglobin 33 25-34 pg Mean Corpuscular Hemoglobin Concent 35 32-36 g/dL Red Cell Distribution Width 15.8 H 10.0-14.5 % Platelet Count 312 130-400 10^3/uL Mean Platelet Volume 11.1 9.0-12.2 fL Immature Granulocyte % (Auto) 0 % Neutrophils (%) (Auto) 86 H 42-75 % Lymphocytes (%) (Auto) 7 L 12-44 % Monocytes (%) (Auto) 6 0-12 % Eosinophils (%) (Auto) 0 0-10 % Basophils (%) (Auto) 0 0-10 % Neutrophils # (Auto) 6.4 1.8-7.8 10^3/uL Lymphocytes # (Auto) 0.5 L 1.0-4.0 10^3/uL Monocytes # (Auto) 0.5 0.0-1.0 10^3/uL Eosinophils # (Auto) 0.0 0.0-0.3 10^3/uL Basophils # (Auto) 0.0 0.0-0.1 10^3/uL Immature Granulocyte # (Auto) 0.0 0.0-0.1 10^3/uL Neutrophils % (Manual) 70 % Lymphocytes % (Manual) 9 % Monocytes % (Manual) 4 % Eosinophils % (Manual) 0 % Basophils % (Manual) 0 % Band Neutrophils 17 % Blood Morphology Comment NORMAL Prothrombin Time 29.9 H 12.2-14.7 SEC INR Comment 2.8 H 0.8-1.4 Activated Partial Thromboplast Time 39 H 24-35 SEC D-Dimer 1.36 H 0.00-0.49 UG/ML Sodium Level 142 140 135-145 MMOL/L Potassium Level 2.5 *L 2.6 L 3.6-5.0 MMOL/L Chloride Level 107 109 H 98-107 MMOL/L Carbon Dioxide Level 21 19 L 21-32 MMOL/L Anion Gap 14 12 5-14 MMOL/L Blood Urea Nitrogen 111 *H 104 *H 7-18 MG/DL Creatinine 2.77 H 2.54 H 0.60-1.30 MG/DL Estimat Glomerular Filtration Rate 17 18 BUN/Creatinine Ratio 40 41 Glucose Level 144 H 167 H 70-105 MG/DL Lactic Acid Level 1.73 1.10 0.50-2.00 MMOL/L Calcium Level 7.6 L 7.5 L 8.5-10.1 MG/DL Corrected Calcium 8.7 8.5-10.1 MG/DL Magnesium Level 1.7 1.6 1.6-2.4 MG/DL Total Bilirubin 0.6 0.1-1.0 MG/DL Aspartate Amino Transf (AST/SGOT) 448 H 5-34 U/L Alanine Aminotransferase (ALT/SGPT) 243 H 0-55 U/L Alkaline Phosphatase 77 40-136 U/L Lactate Dehydrogenase 490 H 125-220 U/L C-Reactive Protein High Sensitivity 17.18 H 0.00-0.50 MG/DL Total Protein 5.7 L 6.4-8.2 GM/DL Albumin 2.6 L 3.2-4.5 GM/DL Procalcitonin 0.67 H <0.10 NG/ML B-Type Natriuretic Peptide 95.1 <100.0 PG/ML Test 07/26/20 03:00 Range/Units White Blood Count 8.0 4.3-11.0 10^3/uL Red Blood Count 3.24 L 3.80-5.11 10^6/uL Hemoglobin 10.5 L 11.5-16.0 g/dL Hematocrit 30 L 35-52 % Mean Corpuscular Volume 92 80-99 fL Mean Corpuscular Hemoglobin 32 25-34 pg Mean Corpuscular Hemoglobin Concent 35 32-36 g/dL Red Cell Distribution Width 15.4 H 10.0-14.5 % Platelet Count 284 130-400 10^3/uL Mean Platelet Volume 11.1 9.0-12.2 fL Immature Granulocyte % (Auto) 1 % Neutrophils (%) (Auto) 83 H 42-75 % Lymphocytes (%) (Auto) 12 12-44 % Monocytes (%) (Auto) 4 0-12 % Eosinophils (%) (Auto) 0 0-10 % Basophils (%) (Auto) 0 0-10 % Neutrophils # (Auto) 6.6 1.8-7.8 10^3/uL Lymphocytes # (Auto) 0.9 L 1.0-4.0 10^3/uL Monocytes # (Auto) 0.3 0.0-1.0 10^3/uL Eosinophils # (Auto) 0.0 0.0-0.3 10^3/uL Basophils # (Auto) 0.0 0.0-0.1 10^3/uL Immature Granulocyte # (Auto) 0.0 0.0-0.1 10^3/uL Sodium Level 138 135-145 MMOL/L Potassium Level 2.8 L 3.6-5.0 MMOL/L Chloride Level 108 H 98-107 MMOL/L Carbon Dioxide Level 20 L 21-32 MMOL/L Anion Gap 10 5-14 MMOL/L Blood Urea Nitrogen 93 H 7-18 MG/DL Creatinine 2.15 H 0.60-1.30 MG/DL Estimat Glomerular Filtration Rate 22 BUN/Creatinine Ratio 43 Glucose Level 135 H 70-105 MG/DL Calcium Level 7.4 L 8.5-10.1 MG/DL Phosphorus Level 2.0 L 2.3-4.7 MG/DL Magnesium Level 2.1 1.6-2.4 MG/DL Micro Results Microbiology 07/25/20 Influenza Types A,B Antigen (SHANNAN) - Final, Complete My Orders Orders - RONNIE RUST MD Fibrin Degradation Products (07/25/20 08:12) Procalcitonin (Pct) (07/25/20 08:12) Hs C Reactive Protein (07/25/20 08:12) LDH (07/25/20 08:12) Covid 19 Inhouse Test (07/25/20 08:12) Cbc With Automated Diff (07/25/20 08:12) Comprehensive Metabolic Panel (07/25/20 08:12) Blood Culture (07/25/20 08:12) Sputum Culture (07/25/20 08:12) Urinalysis (07/25/20 08:12) Urine Culture (07/25/20 08:12) Protime With Inr (07/25/20 08:12) Partial Thromboplastin Time (07/25/20 08:12) Chest 1 View, Ap/Pa Only (07/25/20 08:12) Ed Iv/Invasive Line Start (07/25/20 08:12) Ed Iv/Invasive Line Start (07/25/20 08:12) Vital Signs Adult Sepsis Patie Q15M (07/25/20 08:12) O2 (07/25/20 08:12) Remove Rings In Anticipation O (07/25/20 08:12) Lactic Acid Analyzer (07/25/20 08:12) Magnesium (07/25/20 08:12) Lactated Ringers (Lr 1000 Ml Iv Solution (07/25/20 08:15) Coronavirus Sars-Cov-2 So 2018 (07/25/20 08:24) Manual Differential (07/25/20 09:13) Meropenem (Merrem 1000 Mg) (07/25/20 09:45) Influenza A And B Antigens (07/25/20 09:35) Ns Iv 1000 Ml (Sodium Chloride 0.9%) (07/25/20 10:30) Potassium Cl 10meq/50ml Ivpb (Kcl 10 Meq (07/25/20 10:30) Ns Iv 1000 Ml (Sodium Chloride 0.9%) (07/25/20 11:45) Norepinephrine 4 Mg/250 Ml (Norepinephri (07/25/20 11:45) BNP (07/25/20 12:09) Ct Abdomen/Pelvis Wo (07/25/20 12:23) Medications Given in ED Vital Signs/I&O 07/25/20 07/25/20 07/25/20 07/25/20 19:00 19:16 19:20 19:50 Temp 36.3 Pulse 90 90 90 Resp 10 18 B/P (MAP) 92/65 (87) 103/65 (78) Pulse Ox 98 100 O2 Delivery Nasal Cannula Nasal Cannula O2 Flow Rate 4.00 3.00 07/25/20 07/25/20 07/25/20 07/25/20 20:00 21:00 21:13 22:00 Pulse 93 87 87 Resp 17 38 9 B/P (MAP) 133/68 (87) 129/71 (84) 110/57 (73) Pulse Ox 94 93 93 94 O2 Delivery Nasal Cannula Nasal Cannula Nasal Cannula Nasal Cannula O2 Flow Rate 3.00 3.00 4.00 3.00 07/25/20 07/25/20 07/25/20 07/25/20 22:01 22:09 23:00 23:44 Temp 36.2 Pulse 89 Resp 12 B/P (MAP) 110/57 102/60 (66) Pulse Ox 94 O2 Delivery Nasal Cannula Nasal Cannula O2 Flow Rate 2.00 2.00 07/26/20 07/26/20 07/26/20 07/26/20 00:00 01:00 01:00 02:00 Pulse 86 82 82 81 Resp 22 14 17 B/P (MAP) 106/70 (87) 105/57 (74) 103/50 (72) Pulse Ox 92 95 94 O2 Delivery Nasal Cannula Nasal Cannula Nasal Cannula O2 Flow Rate 2.00 2.00 2.00 07/26/20 07/26/20 07/26/20 07/26/20 03:00 03:50 04:30 05:00 Pulse 75 79 80 Resp 36 20 33 B/P (MAP) 110/57 (75) 97/45 118/66 (83) 114/98 (103) Pulse Ox 97 94 94 O2 Delivery Nasal Cannula Nasal Cannula Nasal Cannula O2 Flow Rate 2.00 2.00 2.00 07/25/20 23:59 Intake Total 2050 ml Balance 2050 ml Capillary Refill : Less Than 3 Seconds Blood Pressure Mean: 69 Progress Note #1: Time: 12:12 Progress Note Patient was seen and examined upon arrival. She was hypoxic but resuscitated with nasal cannula alone. Venous access was very poor. Central line was placed by this provider after verbal consent from patient's POA. She is still hypotensive after 2 L of IV fluid. 1/3 L is being initiated. Potassium has been replaced by IV route. Initial antibiotic therapy has been started with meropenem due to penicillin allergy. Urinary tract infection is the suspected source given presence of pyuria. Patient is being admitted to the ICU. Her documentation states DO NOT RESUSCITATE. We will start vancomycin orally and obtain a C. difficile specimen for stools given the vague generalized abdominal tenderness and the profound diarrhea. Initial Covid swab was negative. The PCR test is pending. We will keep her as a PUI until the PCR test returns as she has hypoxia and diarrhea that could be related to Covid 19. Progress Note #2: Time: 12:55 Progress Note After discussing the case with Dr. Andres, I decided to add a CT of the abdomen and pelvis. Patient has hypotension in the context of abdominal discomfort and Eliquis use. This should be investigated further before committing to admission in the ICU. Diagnostic Imaging Diagonstic Imaging: Xray Plain Films/CT/US/NM/MRI: chest Comments NAME: ELINOR PAIGE [facility] REC#: [id number] PT STATUS: REG ER : 1940 PHYSICIAN: RONNIE RUST MD ADMIT DATE: 07/25/20/ER Draft Date of Exam:07/25/20 CHEST 1 VIEW, AP/PA ONLY INDICATION: Hypoxia and fever and altered mental status. COMPARISON: Comparison is made to 05/05/2020. FINDINGS: There is cardiomegaly. There is central vascular congestion. There is new infiltrate in the right upper lobe in the suprahilar region. There is no pneumothorax or pleural fluid. Central venous catheter tip from right side overlies the mid SVC. IMPRESSION: Cardiomegaly with central vascular congestion. There is new infiltrate in the right suprahilar region. Follow-up is recommended. Dictated on workstation # [id number] Dict: 07/25/20 1040 Trans: 07/25/20 1048 [facility] [id number] Interpreted by: CALIN BROWNING MD Reviewed: Reviewed by Me Diagonstic Imaging: CT Plain Films/CT/US/NM/MRI: abdomen, pelvis Comments NAME: ELINOR PAIGE [facility] REC#: [id number] PT STATUS: REG ER : 1940 PHYSICIAN: RONNIE RUST MD ADMIT DATE: 07/25/20/ER Signed Date of Exam:07/25/20 CT ABDOMEN/PELVIS WO EXAMINATION: CT Abdomen Pelvis without contrast. TECHNIQUE: Multiple contiguous axial images were obtained through the abdomen and pelvis without the use of intravenous contrast. All CT scans use one or more of the following dose optimizing techniques: automated exposure control, MA and/or KvP adjustment based on a patient size and exam type, or iterative reconstruction. HISTORY: Hypotension, abd pain COMPARISON: None available. FINDINGS: Lung bases: Consolidation within the lung bases. Solid organs: The liver is normal. The gallbladder is surgically absent. There is no biliary ductal dilation. Atrophy of the pancreas without ductal dilatation. Spleen is normal. Adrenal glands are normal. Mild bilateral renal cortical atrophy without hydronephrosis. Bowel: A moderate hiatal hernia is present. A small duodenal diverticulum is present. No bowel obstruction. The colon is normal. The appendix is nonvisualized. Peritoneum: There is no intraperitoneal free fluid or free air. No suspicious lymphadenopathy. Vasculature: Calcification of the aorta without aneurysm. Musculoskeletal: Degenerative changes of the spine without suspicious osseous lesion or compression fracture. Pelvis: The uterus and adnexa are normal. Urinary bladder is decompressed with a Carney catheter. IMPRESSION: 1. No acute abnormality in the abdomen or pelvis. 2. Likely multifocal pneumonia or aspiration within the visualized lung bases. 3. Moderate hiatal hernia. Dictated by: Dictated on workstation # [id number] Dict: 07/25/20 1416 Trans: 07/25/20 1428 [facility] [id number] Interpreted by: TIAN POE DO Electronically signed by: TIAN POE DO 07/25/20 1428 Reviewed: Reviewed by Nv Departure Communication (Admissions) Time/Spoke to Admitting Phy: 12:10 Dr. Mckeon Impression Primary Impression: Sepsis Qualified Codes: A41.9 - Sepsis, unspecified organism Additional Impressions: Hypovolemia Diarrhea Qualified Codes: R19.7 - Diarrhea, unspecified Urinary tract infection Qualified Codes: N39.0 - Urinary tract infection, site not specified Hypokalemia Hypoxia Person under investigation for COVID-19 Acute on chronic kidney failure Qualified Codes: N17.9 - Acute kidney failure, unspecified; N18.9 - Chronic kidney disease, unspecified Pneumonia Qualified Codes: J18.9 - Pneumonia, unspecified organism Disposition: 09 ADMITTED INPATIENT Condition: Improved Admissions Decision to Admit Reason: Admit from ER (General) Decision to Admit/Date: Jul 25, 2020 Time/Decision to Admit Time: 08:05 Departure-Patient Inst. Referrals: [facility] (PCP/Family) Primary Care Physician RONNIE RUST MD Jul 25, 2020 09:34
[2020-07-25 09:40] LABS: FIBRIN DEGRADATION PRODUCTS 1.36 UG/ML (0.00-0.49); INR 2.8 (0.8-1.4); PROTHROMBIN TIME PATIENT 29.9 SEC (12.2-14.7)
[2020-07-25] MEDS ORDERED: MEROPENEM 1,000 MG in WATER (STERILE) FOR INJECTION 20 ML IV ONE (09:45)
[2020-07-25 09:46] LABS: BAND NEUTROPHILS 17 %; BASOPHILS % (MANUAL) 0 %; EOSINOPHILS % (MANUAL) 0 %; LYMPHOCYTES % (MANUAL) 9 %; MONOCYTES % (MANUAL) 4 %; NEUTROPHILS % (MANUAL) 70 %; RBC MORPH NORMAL
[2020-07-25 09:58] LABS: ALBUMIN 2.6 GM/DL (3.2-4.5); BILIRUBIN,TOTAL 0.6 MG/DL (0.1-1.0); CALCIUM 7.6 MG/DL (8.5-10.1); CREATININE SERUM 2.77 MG/DL (0.60-1.30); MAGNESIUM 1.7 MG/DL (1.6-2.4); TOTAL PROTEIN 5.7 GM/DL (6.4-8.2)
[2020-07-25 10:02] LABS: POTASSIUM 2.5 MMOL/L (3.6-5.0)
[2020-07-25] MEDS ORDERED: NS IV 1000 ML 1,000 ML IV SCH ×2 (10:30→11:45)
[2020-07-25] MEDS ORDERED: POTASSIUM CL 10MEQ/50ML IVPB 50 ML IV ONE (10:30)
--- NOTE | 2020-07-25 10:48 | Diagnostic Imaging Report ---
INDICATION: Hypoxia and fever and altered mental status. COMPARISON: Comparison is made to 05/05/2020. FINDINGS: There is cardiomegaly. There is central vascular congestion. There is new infiltrate in the right upper lobe in the suprahilar region. There is no pneumothorax or pleural fluid. Central venous catheter tip from right side overlies the mid SVC. IMPRESSION: Cardiomegaly with central vascular congestion. There is new infiltrate in the right suprahilar region. Follow-up is recommended. Dictated by: Dictated on workstation # [id number]
[2020-07-25] MEDS ORDERED: NOREPINEPHRINE 4 MG/250 ML 250 ML IV SCH (11:45)
--- NOTE | 2020-07-25 14:24 | Diagnostic Imaging Report ---
EXAMINATION: CT Abdomen Pelvis without contrast. TECHNIQUE: Multiple contiguous axial images were obtained through the abdomen and pelvis without the use of intravenous contrast. All CT scans use one or more of the following dose optimizing techniques: automated exposure control, MA and/or KvP adjustment based on a patient size and exam type, or iterative reconstruction. HISTORY: Hypotension, abd pain COMPARISON: None available. FINDINGS: Lung bases: Consolidation within the lung bases. Solid organs: The liver is normal. The gallbladder is surgically absent. There is no biliary ductal dilation. Atrophy of the pancreas without ductal dilatation. Spleen is normal. Adrenal glands are normal. Mild bilateral renal cortical atrophy without hydronephrosis. Bowel: A moderate hiatal hernia is present. A small duodenal diverticulum is present. No bowel obstruction. The colon is normal. The appendix is nonvisualized. Peritoneum: There is no intraperitoneal free fluid or free air. No suspicious lymphadenopathy. Vasculature: Calcification of the aorta without aneurysm. Musculoskeletal: Degenerative changes of the spine without suspicious osseous lesion or compression fracture. Pelvis: The uterus and adnexa are normal. Urinary bladder is decompressed with a Carney catheter. IMPRESSION: 1. No acute abnormality in the abdomen or pelvis. 2. Likely multifocal pneumonia or aspiration within the visualized lung bases. 3. Moderate hiatal hernia. Dictated by: Dictated on workstation # [id number]
[2020-07-25] MEDS ORDERED: ONDANSETRON 4 MG/2 ML (SDV) Z0FRAN IV PRN (16:00)
[2020-07-25] MEDS: LACTATED RINGERS 1,000 ML IV SCH ×2 (17:01→21:06)
[2020-07-25] MEDS: NOREPINEPHRINE 4 MG/250 ML 250 ML IV SCH ×3 (17:01→22:01)
[2020-07-25 17:48] LABS: CALCIUM 7.5 MG/DL (8.5-10.1); CREATININE SERUM 2.54 MG/DL (0.60-1.30); MAGNESIUM 1.6 MG/DL (1.6-2.4); POTASSIUM 2.6 MMOL/L (3.6-5.0)
[2020-07-25] MEDS: VANCOMYCIN 125 MG CAPSULE PO SCH ×2 (18:16→23:32)
[2020-07-25] MEDS: MAGNESIUM 1 GM/100 ML IVPB 100 ML IV SCH ×2 (19:51→20:04)
[2020-07-25] MEDS: POTASSIUM CL 10MEQ/50ML IVPB 50 ML IV SCH ×6 (19:53→22:49)
--- NOTE | 2020-07-25 20:58 | History & Physical-Hospitalist ---
History of Present Illness HPI/Chief Complaint CC: Hypotension with severe ARF HPI: [facility] a 79[facility] patient who presented to the ER with dizziness and found to have profound hypotension and ALFA. Patient is unable to provide any details. I reviewed meds and labs and images. Consulted Dr Andres. Patient has long hx of medical issues causing severe disability and is a DNR. Source: patient Exam Limitations: clinical condition Date Seen 07/25/20 Time Seen by a Provider: 18:30 Attending Physician Hermila Dukes DO [facility] Referring Physician Date of Admission Jul 25, 2020 at 12:25 Home Medications & Allergies Home Medications Reviewed patient Home Medication Reconciliation performed by pharmacy medication reconciliations retail pharmacy technician and/or nursing. Patients Allergies have been reviewed. Allergies Allergies Coded Allergies penicillin G (Verified Allergy, Unknown, 07/08/06) Past Xitsbhq-Sqwsdi-Smilzy Hx Past Med/Social Hx: Reviewed Nursing Past Med/Soc Hx, Reviewed and Corrections made Patient Social History Marrital Status: single Employed/Student: retired Alcohol Use: Denies Use Smoking Status: Unknown if Ever Smoked Recent Foreign Travel: No Contact w/other who traveled: No Recent Hopitalizations: Yes (GB REMOVED ABCESS REMOVED FROM STOMACH) Recent Infectious Disease Expo: No Immunizations Up To Date Date of Pneumonia Vaccine: Jul 07, 2014 Date of Influenza Vaccine: May 27, 2019 Seasonal Allergies Seasonal Allergies: Yes Past Medical History Surgeries: Appendectomy, Gallbladder, Orthopedic Respiratory: Sleep Apnea Cardiac: Atrial Fibrillation, Chronic Edema/Swelling, High Cholesterol, Hypertension : No Reproductive: No Gastrointestinal: Gall Bladder Disease Musculoskeletal: Arthritis Endocrine: Diabetes, Non-Insulin dep History of Blood Disorders: No Family History Cancer, Diabetes, Hypertension Review of Systems Constitutional: see HPI, malaise, weakness Physical Exam Physical Exam Vital Signs Vital Signs - First Documented 07/25/20 07:59 Temp 37.0 Pulse 92 Resp 16 B/P (MAP) 90/59 (69) Pulse Ox 91 O2 Delivery Nasal Cannula O2 Flow Rate 4.00 Capillary Refill : Less Than 3 Seconds Height, Weight, BMI Height: 5'0" Weight: 335lbs. 7.0oz. 152.770756tp; 49.00 BMI Method:Stated General Appearance: No Apparent Distress, Chronically ill, Obese Respiratory: Lungs Clear, Normal Breath Sounds Cardiovascular: Regular Rate, Rhythm Neurologic/Psychiatric: Alert, Disoriented Results Results/Procedures Labs Laboratory Tests 07/25/20 09:13 07/25/20 17:00 07/26/20 03:00 Patient resulted labs reviewed. Assessment/Plan Admission Diagnosis Assessment: Hypotension ALFA AF DM OHS Hypoxia Plan: Monitor renal function IVF Dr Andres consult Admission Status: Inpatient Order (span 2 midnights) Reason for Inpatient Admission: hypotension Clinical Quality Measures DVT/VTE Risk/Contraindication: Risk Factor Score Per Nursin RFS Level Per Nursing on Admit: 4+=Very High HERMILA DUKES DO Jul 25, 2020 20:58
[2020-07-25] MEDS: MEROPENEM 500 MG/SWFI 10 ML IV PUSH IV SCH ×2 (22:04)
[2020-07-26] MEDS: LACTATED RINGERS 1,000 ML IV SCH ×5 (01:08→23:20)
[2020-07-26 03:09] LABS: BASOPHILS % (AUTO) 0 % (0-10); EOSINOPHILS % (AUTO) 0 % (0-10); HEMATOCRIT 30 % (35-52); HEMOGLOBIN 10.5 g/dL (11.5-16.0); LYMPHOCYTES # (AUTO) 0.9 10^3/uL (1.0-4.0); LYMPHOCYTES % (AUTO) 12 % (12-44); MEAN CORPUSCULAR HEMOGLOBIN 32 pg (25-34); MEAN CORPUSCULAR HGB CONC 35 g/dL (32-36); MEAN CORPUSCULAR VOLUME 92 fL (80-99); MEAN PLATELET VOLUME 11.1 fL (9.0-12.2); MONOCYTES # (AUTO) 0.3 10^3/uL (0.0-1.0); MONOCYTES % (AUTO) 4 % (0-12); NEUTROPHILS # (AUTO) 6.6 10^3/uL (1.8-7.8); NEUTROPHILS % (AUTO) 83 % (42-75); PLATELET COUNT 284 10^3/uL (130-400)
[2020-07-26 03:28] LABS: CALCIUM 7.4 MG/DL (8.5-10.1); CREATININE SERUM 2.15 MG/DL (0.60-1.30); MAGNESIUM 2.1 MG/DL (1.6-2.4); POTASSIUM 2.8 MMOL/L (3.6-5.0)
[2020-07-26] MEDS: NOREPINEPHRINE 4 MG/250 ML 250 ML IV SCH ×4 (03:50→21:30)
--- NOTE | 2020-07-26 04:38 | Pulmonary Consultation ---
History of Present Illness History of Present Illness Date Seen by Provider: Jul 25, 2020 (Late note. ) Time Seen by Provider: 13:30 Date of Admission Allergies and Home Medications Allergies Coded Allergies: penicillin G (Verified Allergy, Unknown, 07/08/06) Home Medications Acetaminophen 500 Mg Tablet, 500-1,000 MG PO Q4H PRN for PAIN-MILD (1-4), (Reported) Albuterol Sulfate 1 Puff Puff, 2 PUFF INH Q4H PRN for SHORTNESS OF BREATH, (Reported) 1 PUFF = 90 MCG Amiodarone HCl 200 Mg Tablet, 400 MG PO BID Prescribed by: ILENE MCKEON on 06/18/19 1017 Amlodipine Besylate 10 Mg Tablet, 10 MG PO HS, (Reported) LAST FILLED #90 02-02-19 Apixaban 5 Mg Tablet, 5 MG PO BID Prescribed by: ILENE MCKEON on 06/18/19 1017 Budesonide/Formoterol Fumarate 10.2 Gm Hfa.aer.ad, 2 PUFF IH BID PRN for SHORTNESS OF BREATH, (Reported) LAST FILLED 11-04-18 Cyclobenzaprine HCl 10 Mg Tablet, 10 MG PO TID PRN for MUSCLE SPASMS, (Reported) Dexlansoprazole 60 Mg Handy.bp, 60 MG PO HS, (Reported) Diltiazem HCl 30 Mg Tablet, 30 MG PO Q6HR Prescribed by: ILENE MCKEON on 06/18/19 1017 Fluticasone Propionate 9.9 Ml Buras.susp, 2 SPRAY NS DAILY PRN for ALLERGIES, (Reported) Furosemide 40 Mg Tablet, 40 MG PO DAILY, (Reported) Levocetirizine Dihydrochloride 5 Mg Tablet, 5 MG PO HS, (Reported) Metformin HCl 500 Mg Tab.er.24h, 500 MG PO HS, (Reported) Montelukast Sodium 10 Mg Tablet, 10 MG PO HS, (Reported) Oxycodone HCl/Acetaminophen 1 Each Tablet, 1 TAB PO TID, (Reported) Past Dglmarf-Fegzdz-Waykdd Hx Patient Social History Recent Foreign Travel: No Contact w/Someone Who Travel: No Recent Infectious Disease Expo: No Recent Hopitalizations: Yes (GB REMOVED ABCESS REMOVED FROM STOMACH) Immunizations Up To Date Date of Pneumonia Vaccine: Jul 07, 2014 Date of Influenza Vaccine: May 27, 2019 Seasonal Allergies Seasonal Allergies: Yes Past Medical History Surgeries: Yes (RT HAND, L TKR ) Appendectomy, Gallbladder, Orthopedic Respiratory: Yes Asthma, Pneumonia, COPD Cardiac: Yes Atrial Fibrillation, Chronic Edema/Swelling, High Cholesterol, Hypertension Neurological: No : No Reproductive Disorders: No Genitourinary: No Gastrointestinal: Yes Gall Bladder Disease Musculoskeletal: Yes Arthritis Endocrine: No ("PRE-DIABETIC") Diabetes, Non-Insulin dep Cancer: No Psychosocial: No Integumentary: Yes (LOWER LEGS/FEET) Blood Disorders: No Family Medical History Cancer, Diabetes, Hypertension Sepsis Event Evaluation Height, Weight, BMI Height: 5'0" Weight: 335lbs. 7.0oz. 152.345874pp; 49.00 BMI Method:Stated Exam Exam Vital Signs Date Time Temp Pulse Resp B/P (MAP) Pulse Ox O2 Delivery O2 Flow Rate FiO2 07/26/20 03:50 97/45 07/26/20 01:00 82 07/25/20 23:44 36.2 07/25/20 22:09 Nasal Cannula 2.00 07/25/20 22:01 110/57 07/25/20 21:13 93 Nasal Cannula 4.00 07/25/20 19:50 90 18 103/65 (78) 100 Nasal Cannula 3.00 07/25/20 19:20 90 07/25/20 19:16 36.3 07/25/20 18:00 90 18 131/63 (76) 97 Nasal Cannula 4.00 07/25/20 17:45 108/76 (82) 07/25/20 17:30 89 15 103/92 (99) 90 Nasal Cannula 4.00 07/25/20 17:15 90 18 108/69 (84) 97 Nasal Cannula 4.00 07/25/20 17:01 93 119/65 07/25/20 17:00 90 18 124/64 (86) 96 Nasal Cannula 4.00 07/25/20 16:10 92 07/25/20 16:00 93 Nasal Cannula 4.00 07/25/20 15:53 36.9 93 18 119/65 (83) 93 Nasal Cannula 07/25/20 15:31 116 16 102/51 93 Nasal Cannula 4.00 07/25/20 12:01 98 92/51 07/25/20 07:59 37.0 92 16 90/59 (69) 91 Nasal Cannula 4.00 07/25/20 07:59 Nasal Cannula 4.00 I & O 07/26/20 07:00 Intake Total 5550 ml Output Total 575 ml Balance 4975 ml Height & Weight Height: 5'0" Weight: 335lbs. 7.0oz. 152.635779if; 49.00 BMI Method:Stated General Appearance: No Apparent Distress, WD/WN, Obese, Other (Lethargic) HEENT: PERRL/EOMI, Normal ENT Inspection, Other (Oropharynx very dry) Neck: Normal Inspection Respiratory: Lungs Clear, Normal Breath Sounds, No Accessory Muscle Use Cardiovascular: Regular Rate, Rhythm, No Edema, No Murmur Capillary Refill: Less Than 3 Seconds Extremity: Normal Inspection, No Pedal Edema Neurologic/Psychiatric: Other (Lethargic, mumbling speech with some coherent words, follows some commands, moves all 4 extremities, responsive to voice and touch) Results Lab Laboratory Tests 07/25/20 09:13 07/25/20 17:00 07/26/20 03:00 Assessment/Plan Assessment/Plan Hypoxia -Currently on 2 liters of oxygen Hypotension -Give liter bolus of LR -Desai cultures pending -Wean levophed to D/C Anemia -Monitor Afib -Restart Eliquis -monitor Acute on chronic Renal failure -IVF -Monitor SHARON JOSEPH DO Jul 26, 2020 04:38
[2020-07-26] MEDS ORDERED: LACTATED RINGERS 1,000 ML IV SCH (04:45)
[2020-07-26] MEDS ORDERED: FAMOTIDINE 20 MG (PEPCID) TABLET PO PRN (04:45)
[2020-07-26] MEDS: POTASSIUM CL 10MEQ/50ML IVPB 50 ML IV SCH ×6 (05:10→09:09)
[2020-07-26] MEDS: VANCOMYCIN 125 MG CAPSULE PO SCH ×4 (05:11→23:20)
--- NOTE | 2020-07-26 05:53 | Progress Note - Hospitalist ---
Subjective HPI/CC On Admission Date Seen by Provider: Jul 26, 2020 Time Seen by Provider: 09:00 CC: Hypotension with severe ARF HPI: This is a 79yoWF half-way patient who presented to the ER with dizziness and found to have profound hypotension and ALFA. Patient is unable to provide any details. I reviewed meds and labs and images. Consulted Dr Andres. Patient has long hx of medical issues causing severe disability and is a DNR. Subjective/Events-last exam Pt very delirious Potassium 2.8 Hgb 10.5 BUN 93 Creatinine of 2.1 Overall very complicated Review of Systems General: Fatigue, Malaise Focused Exam Lactate Level 07/25/20 09:13: Lactic Acid Level 1.73 07/25/20 17:00: Lactic Acid Level 1.10 Objective Exam Vital Signs Vital Signs Date Time Temp Pulse Resp B/P (MAP) Pulse Ox O2 Delivery O2 Flow Rate FiO2 07/26/20 20:34 92 Nasal Cannula 2.00 07/26/20 19:46 92 22 116/66 (83) 07/26/20 19:12 36.0 Capillary Refill : Less Than 3 Seconds General Appearance: No Apparent Distress, WD/WN, Chronically ill, Obese Respiratory: Lungs Clear Cardiovascular: Regular Rate, Rhythm Neurologic/Psychiatric: Alert, Disoriented Results/Procedures Lab Laboratory Tests 07/26/20 03:00 Patient resulted labs reviewed. Assessment/Plan Assessment and Plan Assess & Plan/Chief Complaint Assessment: Hypotension ALFA AF DM OHS Hypoxia Plan: Monitor renal function IVF Dr Andres consult 07/26/20: Monitor closely Clinical Quality Measures DVT/VTE Risk/Contraindication: Risk Factor Score Per Nursin RFS Level Per Nursing on Admit: 4+=Very High ILENE MCKEON DO Jul 26, 2020 05:53
[2020-07-26] MEDS: MEROPENEM 500 MG/SWFI 10 ML IV PUSH IV SCH ×4 (07:59→21:30)
[2020-07-26] MEDS: FAMOTIDINE 20 MG (PEPCID) TABLET PO SCH (08:00)
[2020-07-26] MEDS: APIXABAN 5 MG (ELIQUIS) TABLET PO SCH ×2 (08:00→20:01)
[2020-07-26] MEDS ORDERED: POTASSIUM PHOSPHATE INJ 15 MM in NS (IVPB) 250 ML IV ONE (08:00)
--- NOTE | 2020-07-26 08:56 | Diagnostic Imaging Report ---
INDICATION: Dyspnea, confusion. TECHNIQUE: Single view chest at 8:37 AM. CORRELATION STUDY: 07/25/2020. FINDINGS: The right IJ Jffiak-o-Ieue catheter tip is over the SVC. The heart size is enlarged and the mediastinum is prominent. Vasculature has increased from prior. Scattered bilateral pulmonary parenchymal opacities are present, most pronounced involving the right upper lobe, and overall appear slightly more prominent from prior. IMPRESSION: 1. Vasculature appears slightly increased from prior, suggestive of a component of vascular congestion. 2. Bilateral pulmonary opacities favoring multilobe pneumonia versus edema. This would include potential for Covid. These findings are adversely increased from prior. 3. The report was faxed to Infection Control by [email or web address]@8:55 AM. Dictated by: Dictated on workstation # [id number]
[2020-07-26] MEDS ORDERED: APIX5TAB PO (10:07)
[2020-07-26] MEDS ORDERED: NYST15PO4 TOP (10:07)
[2020-07-26] MEDS ORDERED: DILT120T3 PO (10:07)
[2020-07-26] MEDS ORDERED: SERT100T8 PO (10:07)
[2020-07-26] MEDS ORDERED: LINA145C PO (10:07)
[2020-07-26] MEDS ORDERED: FAMO20TA5 PO (10:07)
[2020-07-26] MEDS ORDERED: POLY17PO6 PO (10:07)
[2020-07-26] MEDS ORDERED: ONDN4T PO (10:07)
[2020-07-26] MEDS ORDERED: DULA1.5P2 SC (10:07)
[2020-07-26] MEDS ORDERED: BISA10SU8 RC (10:07)
[2020-07-26] MEDS ORDERED: MULT-593 PO (10:07)
[2020-07-26] MEDS ORDERED: AMIO200T6 PO (10:07)
[2020-07-26] MEDS: SENNA W/DOCUSATE (SENOKOT S) TABLET PO SCH (19:56)
[2020-07-26] MEDS ORDERED: MELATONIN 3 MG TABLET PO PRN (20:00)
[2020-07-26] MEDS ORDERED: ONDANSETRON 4 MG/2 ML (SDV) Z0FRAN IVP PRN (20:00)
[2020-07-26] MEDS ORDERED: HYDROcodone/APAP 5 MG/325 MG (LORTAB) TAB PO PRN (20:00)
[2020-07-26] MEDS ORDERED: CALCIUM CARBONATE 500 MG (TUMS) TAB.CHEW PO PRN (20:00)
[2020-07-26] MEDS ORDERED: diphenhydrAMINE 25 MG TAB (BENADRYL) PO PRN (20:00)
[2020-07-26] MEDS ORDERED: LOPERAMIDE 2 MG (IMODIUM) TABLET PO PRN (20:00)
[2020-07-26] MEDS ORDERED: DOCUSATE SODIUM 100 MG (COLACE) CAP PO PRN (20:00)
[2020-07-26] MEDS ORDERED: ACETAMINOPHEN 500 MG TAB (TYLENOL) PO PRN (20:00)
[2020-07-26] MEDS: HYDROmorphone 2 MG/ML VIAL (DILAUDID) IVP PRN (20:01)
[2020-07-27] MEDS: HYDROmorphone 2 MG/ML VIAL (DILAUDID) IVP PRN ×2 (01:03→12:25)
[2020-07-27] MEDS: NOREPINEPHRINE 4 MG/250 ML 250 ML IV SCH (02:28)
[2020-07-27 03:18] LABS: BASOPHILS % (AUTO) 0 % (0-10); EOSINOPHILS # (AUTO) 0.2 10^3/uL (0.0-0.3); EOSINOPHILS % (AUTO) 3 % (0-10); HEMATOCRIT 25 % (35-52); HEMOGLOBIN 8.7 g/dL (11.5-16.0); LYMPHOCYTES # (AUTO) 0.9 10^3/uL (1.0-4.0); LYMPHOCYTES % (AUTO) 15 % (12-44); MEAN CORPUSCULAR HEMOGLOBIN 33 pg (25-34); MEAN CORPUSCULAR HGB CONC 36 g/dL (32-36); MEAN CORPUSCULAR VOLUME 93 fL (80-99); MEAN PLATELET VOLUME 11.2 fL (9.0-12.2); MONOCYTES # (AUTO) 0.3 10^3/uL (0.0-1.0); MONOCYTES % (AUTO) 5 % (0-12); NEUTROPHILS # (AUTO) 4.9 10^3/uL (1.8-7.8); NEUTROPHILS % (AUTO) 77 % (42-75); PLATELET COUNT 207 10^3/uL (130-400); WHITE BLOOD COUNT 6.4 10^3/uL (4.3-11.0)
[2020-07-27 03:29] LABS: POTASSIUM 3.5 MMOL/L (3.6-5.0)
[2020-07-27 03:30] LABS: CALCIUM 7.4 MG/DL (8.5-10.1)
[2020-07-27 03:34] LABS: PHOSPHORUS 1.9 MG/DL (2.3-4.7)
[2020-07-27 03:35] LABS: CREATININE SERUM 1.45 MG/DL (0.60-1.30)
[2020-07-27 03:37] LABS: MAGNESIUM 1.7 MG/DL (1.6-2.4)
--- NOTE | 2020-07-27 04:30 | Pulmonary Progress Note ---
Subjective Time Seen by a Provider: 04:25 Sepsis Event Evaluation Height, Weight, BMI Height: 5'0" Weight: 335lbs. 7.0oz. 152.118802np; 49.00 BMI Method:Stated Focused Exam Lactate Level 07/25/20 09:13: Lactic Acid Level 1.73 07/25/20 17:00: Lactic Acid Level 1.10 Exam Exam Vital Signs Date Time Temp Pulse Resp B/P (MAP) Pulse Ox O2 Delivery O2 Flow Rate FiO2 07/26/20 23:00 87 24 118/53 (74) 92 Nasal Cannula 2.00 07/26/20 22:00 90 20 122/54 (82) 93 Nasal Cannula 2.00 07/26/20 21:00 88 21 114/58 (75) 92 Nasal Cannula 2.00 07/26/20 20:34 92 Nasal Cannula 2.00 07/26/20 20:00 89 23 110/56 (66) 92 Nasal Cannula 2.00 07/26/20 19:46 92 22 116/66 (83) 91 Nasal Cannula 2.00 07/26/20 19:12 36.0 07/26/20 19:00 84 19 114/55 (73) 91 Nasal Cannula 2.00 07/26/20 19:00 84 07/26/20 18:00 87 11 129/76 (93) 93 Nasal Cannula 2.00 07/26/20 17:28 87 132/61 07/26/20 17:00 85 22 108/53 (71) 92 Nasal Cannula 2.00 07/26/20 16:39 36.1 07/26/20 16:00 82 19 120/61 (80) 95 Nasal Cannula 2.00 07/26/20 15:00 87 10 132/61 (84) 94 Nasal Cannula 2.00 07/26/20 14:00 87 26 118/58 (78) 94 Nasal Cannula 2.00 07/26/20 13:00 85 13 120/58 (78) 95 Nasal Cannula 2.00 07/26/20 12:38 87 07/26/20 12:32 36.1 07/26/20 12:00 87 14 115/78 (90) 94 Nasal Cannula 2.00 07/26/20 11:00 89 17 99/74 (82) 90 Nasal Cannula 2.00 07/26/20 10:06 82 102/52 07/26/20 10:00 87 19 125/59 (81) 93 Nasal Cannula 2.00 07/26/20 09:00 83 20 99/55 (70) 95 Nasal Cannula 2.00 07/26/20 08:47 95 Nasal Cannula 4.00 07/26/20 08:00 35.9 07/26/20 08:00 83 22 120/61 (80) 94 Nasal Cannula 2.00 07/26/20 07:08 82 07/26/20 07:00 79 11 98/74 (82) 95 Nasal Cannula 2.00 07/26/20 06:00 77 20 102/52 (69) 96 Nasal Cannula 2.00 07/26/20 05:00 80 33 114/98 (103) 94 Nasal Cannula 2.00 07/26/20 04:30 79 20 118/66 (83) 94 Nasal Cannula 2.00 I & O 07/27/20 06:59 Intake Total 575 ml Output Total 1000 ml Balance -425 ml Height & Weight Height: 5'0" Weight: 335lbs. 7.0oz. 152.652561bz; 49.00 BMI Method:Stated General Appearance: No Apparent Distress, WD/WN, Chronically ill, Obese HEENT: PERRL/EOMI, Normal ENT Inspection, Other (Oropharynx very dry) Neck: Normal Inspection Respiratory: Lungs Clear Cardiovascular: Regular Rate, Rhythm Capillary Refill: Less Than 3 Seconds Extremity: Normal Inspection, No Pedal Edema Neurologic/Psychiatric: Alert, Disoriented Results Lab Laboratory Tests 07/25/20 09:13 07/25/20 17:00 07/26/20 03:00 07/27/20 03:10 Assessment/Plan Assessment/Plan Hypoxia -Currently on 2 liters of oxygen Hypotension - levophed D/C Loose stool -Check CDIF Anemia -Monitor Afib -Restart Eliquis -monitor Acute on chronic Renal failure -IVF -- Decrease to 50cc/hr -Monitor SHARON JOSEPH DO Jul 27, 2020 04:30
[2020-07-27] MEDS: MAGNESIUM 1 GM/100 ML IVPB 100 ML IV SCH ×2 (04:40→05:52)
--- NOTE | 2020-07-27 06:18 | Progress Note - Hospitalist ---
Subjective HPI/CC On Admission Date Seen by Provider: Jul 27, 2020 Time Seen by Provider: 09:00 CC: Hypotension with severe ARF HPI: This is a 79yoWF half-way patient who presented to the ER with dizziness and found to have profound hypotension and ALFA. Patient is unable to provide any details. I reviewed meds and labs and images. Consulted Dr Andres. Patient has long hx of medical issues causing severe disability and is a DNR. Subjective/Events-last exam Pt having significant weakness Overall acute on-chronic debility [facility] is where she had resided before admission PT and OT will be ordered Pt is confused Review of Systems General: Fatigue, Malaise Neurological: Confusion Focused Exam Lactate Level Objective Exam Vital Signs Vital Signs Date Time Temp Pulse Resp B/P (MAP) Pulse Ox O2 Delivery O2 Flow Rate FiO2 07/29/20 04:22 36.6 81 20 133/56 (81) 96 High Flow N/C 4.00 Capillary Refill : Less Than 3 Seconds General Appearance: No Apparent Distress, WD/WN, Chronically ill, Obese Respiratory: Lungs Clear Cardiovascular: Regular Rate, Rhythm Neurologic/Psychiatric: Alert Results/Procedures Lab Laboratory Tests 07/29/20 05:46 Patient resulted labs reviewed. Assessment/Plan Assessment and Plan Assess & Plan/Chief Complaint Assessment: Hypotension ALFA AF DM OHS Hypoxia Plan: Monitor renal function IVF Dr Andres consult 07/26/20: Monitor closely 07/27/20: PT OT Poor prognosis Clinical Quality Measures DVT/VTE Risk/Contraindication: Risk Factor Score Per Nursin RFS Level Per Nursing on Admit: 4+=Very High ILENE MCKEON DO Jul 27, 2020 06:18
[2020-07-27 08:00] VITALS: BP 121/57
[2020-07-27] MEDS ORDERED: POTASSIUM PHOSPHATE INJ 30 MM in NS (IVPB) 250 ML IV ONE (08:00)
[2020-07-27] MEDS ORDERED: WATER (STERILE) FOR INJECTION 10 ML ONE ×2 (09:00→22:06)
[2020-07-27] MEDS ORDERED: MEROPENEM 500 MG VIAL (MERREM) IV ONE ×2 (09:00→22:06)
[2020-07-27] MEDS: SENNA W/DOCUSATE (SENOKOT S) TABLET PO SCH ×2 (09:18→22:12)
[2020-07-27] MEDS: FAMOTIDINE 20 MG (PEPCID) TABLET PO SCH (09:18)
[2020-07-27] MEDS: MEROPENEM 500 MG/SWFI 10 ML IV PUSH IV SCH ×4 (09:18→22:11)
[2020-07-27] MEDS: APIXABAN 5 MG (ELIQUIS) TABLET PO SCH ×2 (09:18→22:12)
--- NOTE | 2020-07-27 09:22 | Physical Therapy Evaluation ---
PT Evaluation-General Medical Diagnosis Admission Date Jul 25, 2020 at 12:25 Medical Diagnosis: hypotension, ALFA Onset Date: Jul 25, 2020 Therapy Diagnosis Therapy Diagnosis: impaired mobility, strength, endurance Height/Weight Height (Feet): 5 Height (Inches): 0 Weight (Pounds): 335 Weight (Ounces): 7.0 Precautions Precautions/Isolations: Airborne Isolation, Droplet Isolation, Fall Prevention Referral Physician: Cristian Reason for Referral: Evaluation/Treatment Medical History Pertinent Medical History: Atrial Fib, Arthritis, DM, HTN Additional Medical History Past Medical History Surgeries: Appendectomy, Gallbladder, Orthopedic Respiratory: Sleep Apnea Cardiac: Atrial Fibrillation, Chronic Edema/Swelling, High Cholesterol, Hypertension : No Reproductive: No Gastrointestinal: Gall Bladder Disease Musculoskeletal: Arthritis Endocrine: Diabetes, Non-Insulin dep Social History Home: [facility], patient states she doesn't live at a [facility] Prior Prior Level of Function SCALE: Activities may be completed with or without assistive devices. 9-Mjfinaixhi-gyxcmwf completes the activity by him/herself with no assistance from a helper. 5-Set-up or Clean-up Assistance-helper sets up or cleans up; patient completes activity. [place] assists only prior to or following the activity. 4-Supervision or Touching Assistance-helper provides verbal cues and/or touching/steadying and/or contact guard assistance as patient completes activity. Assistance may be provided throughout the activity or intermittently. 3-Partial/Moderate Assistance-helper does LESS THAN HALF the effort. [place] lifts, holds or supports trunk or limbs, but provides less than half the effort. 2-Substantial/Maximal Assistance-helper does MORE THAN HALF the effort. [place] lifts or holds trunk or limbs and provides more than half the effort. 0-Gqpmvkokh-mgxlss does ALL the effort. Patient does none of the effort to complete the activity. Or, the assistance of 2 or more helpers is required for the patient to complete the activity. If activity was not attempted, code reason: 7-Patient Refused. 9-Not Applicable-not attempted and the patient did not perform the activity before the current illness, exacerbation or injury. 10-Not Attempted due to Environmental Limitations-(lack of equipment, weather restraints, etc.). 88-Not Attempted due to Medical Conditions or Safety Concerns. unknown PT Evaluation-Current Subjective Patient in bed pre tx, nods her head yes when asked if she will participate in physical therapy, shakes her head no when asked if she has pain Pt/Family Goals none stated Objective Patient Orientation: Person, Confused, Unable to Assess, Mumbles ROM/Strength ROM Lower Extremities WNL Strength Lower Extremities gross 2/5 BLE Integumentary/Posture Integumentary swelling BLE Transfers Roll Left to Right (QC): 1 Patient smells like she has had a BM, nurse aide comes in to help roll and clean, patient has just had a very small BM. She doesn't help at all with rolling even when cued to do so. Patient doesn't follow directions, will not perform LE exercise Assessment/Needs Patient is dependent for rolling and apparently any other movement. Patient doesn't follow directions, will not assist with mobility Rehab Potential: Poor PT Intermediate Goals Concrete Plant Laborer Goals PT Intermediate Goals Time Frame: Aug 03, 2020 Roll Left & Right (QC): 2 Sit to Lying (QC): 2 Lying-Sitting on Side/Bed(QC): 2 PT Plan Problem List Problem List: Activity Tolerance, Functional Strength, Safety, Balance, Gait, Transfer, Bed Mobility, ROM Treatment/Plan Treatment Plan: Continue Plan of Care Treatment Plan: Bed Mobility, Education, Functional Activity Shimon, Functional Strength, Gait, Safety, Therapeutic Exercise, Transfers Treatment Duration: Aug 03, 2020 Frequency: 6 times per week Estimated Hrs Per Day: .25 hour per day Patient and/or Family Agrees t: Yes Safety Risks/Education Patient Education: Correct Positioning, Safety Issues Teaching Recipient: Patient Teaching Methods: Demonstration, Discussion Response to Teaching: Reinforcement Needed Patient on right side with pillow support for pressure relief. Discharge Recommendations Plan Patient will perform bed mobility and transfer training, balance and endurance training, functional strengthening, gait training, and education, to improve functional mobility and independence at home. Therapy Discharge Recommendati: 24 Hour Supervision Time/GCodes Time In: 30 Time Out: 08 Total Billed Treatment Time: 10 Total Billed Treatment 1 visit SANDRA LONG PT Jul 27, 2020 09:22
[2020-07-27] MEDS: LACTATED RINGERS 1,000 ML IV SCH (10:22)
--- NOTE | 2020-07-27 11:03 | Occupational Therapy Eval ---
OT Evaluation-General/PLF Medical Diagnosis Admission Date Jul 25, 2020 at 12:25 Medical Diagnosis: hypotension, ALFA/hypoxia Onset Date: Jul 25, 2020 Therapy Diagnosis Therapy Diagnosis: Weakness Height/Weight Height (Feet): 5 Height (Inches): 0 Weight (Pounds): 335 Weight (Ounces): 7.0 Precautions Precautions/Isolations: Airborne Isolation, Droplet Isolation, Fall Prevention Referral Physician: Cristian Referral Reason: Activity Tolerance, Self Care, Evaluation/Treatment, Strengthening/ROM Medical History Pertinent Medical History: Atrial Fib, Arthritis, DM, HTN Additional Medical History Pt. came to ER with hypoxia and hypotension. Pt. in acute renal failure and A- fib. Current History Pt. from [facility] setting. Pt. very confused and agitated at this time. Reviewed History: Yes Social History Home: Custodial Current Living Status: Entry Into Home: Level Entry ADL-Prior Level of Function SCALE: Activities may be completed with or without assistive devices. 8-Lxtdwkefjv-nypwkqk completes the activity by him/herself with no assistance from a helper. 5-Set-up or Clean-up Assistance-helper sets up or cleans up; patient completes activity. [place] assists only prior to or following the activity. 4-Supervision or Touching Assistance-helper provides verbal cues and/or touching/steadying and/or contact guard assistance as patient completes activity. Assistance may be provided throughout the activity or intermittently. 3-Partial/Moderate Assistance-helper does LESS THAN HALF the effort. [place] lifts, holds or supports trunk or limbs, but provides less than half the effort. 2-Substantial/Maximal Assistance-helper does MORE THAN HALF the effort. [place] lifts or holds trunk or limbs and provides more than half the effort. 4-Inxcchbge-yrovff does ALL the effort. Patient does none of the effort to complete the activity. Or, the assistance of 2 or more helpers is required for the patient to complete the activity. If activity was not attempted, code reason: 7-Patient Refused. 9-Not Applicable-not attempted and the patient did not perform the activity before the current illness, exacerbation or injury. 10-Not Attempted due to Environmental Limitations-(lack of equipment, weather restraints, etc.). 88-Not Attempted due to Medical Conditions or Safety Concerns. ADL PLOF Comments It is not fully known pt's previous abilities. Chart states that pt. is from [facility], and was debilitated prior. Pt. is confused and tells this therapist that she lives at home, and does not use any device to ambulate. She states that she needs to leave, and with further prompting, pt. indicates that her mother and will assist her. Pt. becomes agitated with questions during evaluation. Self Care: Unknown Functional Cognition: Unknown OT Current Status Subjective Pt. does not indicate pain, but becomes agitated when talking about "getting out of here." Pt. asks this therapists several times if she can "just get this over with" so she can leave. With prompting and further questions, pt. becomes more agitated and indicates that she needs to leave with family support. Pt. very confused. Appearance Pt. in bed. Alert. Mental Status/Objective Patient Orientation: Confused Attachments: Oxygen Current Hand Dominance: Right Upper Extremity ROM Pt. is asked if she can lift her arms. She states yes, and requires encouragement to attempt. Pt. able to only lift very partially, and with much effort at shoulder level. Noted right UE more edematous than left. Pt. indicates that she is right handed. Noted skin abrasions and bruising throughout bilateral UE. ADL-Treatment Shower/Bathe Self (QC): 1 (Per clinical judgement, pt. will required dependent assistance for sponge bath at bed level.) Toileting Hygiene (QC): 1 (Per clinical judgement, pt. will require dependent assistance.) OT spoke with nursing prior to going in room. Nursing indicates that it took 2- 3 people to assist pt. with bed mobility for rolling side to side. Upon interview, pt. is very confused and indicates that she wants to leave. She does participate somewhat, but it is limited. Pt. indicates that she is thirsty, and when OT attempts to hand her her water pitcher, she refuses and states that it isn't water. OT encourages her and persuades her that it is. OT puts water in hand, but pt. is unable to bring to mouth. OT offers several times to assist her, and pt. refuses. Pt. does allow OT to finally assist, and bring straw to mouth. Pt. takes small sip. Pt. is handed warm washcloth to wash face. She is able to bend at elbows and dab at face, but will not allow OT to wash further. Pt. does allow OT to brush her hair. All needs are met. Due to agitation and confusion, goals will be minimal and limited at this time. Education OT Patient Education: Correct positioning, Modified ADL techniques, Progress toward Goal/Update tx plan, Purpose of tx/functional activities, Reviewed precautions, Rehab process Teaching Recipient: Patient Teaching Methods: Demonstration, Discussion Response to Teaching: Unable to Comprehend, Reinforcement Needed OT Colliery Clerk Goals [facility] Goals Time Frame: Aug 10, 2020 Eating (QC): 3 (Min assistance) Upper Body Dressing (QC): 3 (Mod assistance) Additional Goals: 1-Demonstrate ADL Tasks, 2-Verbalize Understanding, 3- ImproveStrength/Shimon 1=Demonstrate adherence to instructed precautions during ADL tasks. 2=Patient will verbalize/demonstrate understanding of assistive devices/modifications for ADL. 3=Patient will improve strength/tolerance for activity to enable patient to perform ADL's. Pt. will complete bilateral UE exercises with yellow theraband, 3 exercises x 10 reps each, during one treatment session. OT Education/Plan Problem List/Assessment Assessment: Decreased Activ Tolerance, Decreased Safety Aware, Decreased UE Strength, Dependent Transfers, Edema, Impaired Bed Mobility, Impaired Cognition, Impaired Coordination, Impaired Funct Balance, Impaired I ADL's, Impaired Self- Care Skills, Restricted Funct UE ROM Discharge Recommendations Plan/Recommendations: Continue POC Therapy Discharge Recommendati: 24 Hour Supervision Treatment Plan/Plan of Care Treatment,Training & Education: Yes Patient would benefit from OT for education, treatment and training to promote independence in ADL's, mobility, safety and/or upper extremity function for ADL's. Plan of Care: ADL Retraining, Functional Mobility, UE Funct Exercise/Act Treatment Duration: Aug 10, 2020 Frequency: 5 times per week Estimated Hrs Per Day: .25 hour per day Agreement: Yes Rehab Potential: Guarded Time/GCodes Start Time: 10:40 Stop Time: 10:55 Total Time Billed (hr/min): 15 Billed Treatment Time 1, GUS LU OT Jul 27, 2020 11:03
[2020-07-27 12:00] VITALS: BP 132/62
[2020-07-27] MEDS: ALPRAZolam 0.25 MG (XANAX) TAB PO PRN ×2 (12:21→23:07)
[2020-07-27 16:00] VITALS: BP 106/56
[2020-07-27 19:57] VITALS: BP 116/55
[2020-07-28 00:26] VITALS: BP 112/71
[2020-07-28 04:28] VITALS: BP 111/76
[2020-07-28 06:11] LABS: BASOPHILS % (AUTO) 0 % (0-10); EOSINOPHILS # (AUTO) 0.2 10^3/uL (0.0-0.3); EOSINOPHILS % (AUTO) 3 % (0-10); HEMATOCRIT 27 % (35-52); HEMOGLOBIN 9.2 g/dL (11.5-16.0); LYMPHOCYTES # (AUTO) 0.8 10^3/uL (1.0-4.0); LYMPHOCYTES % (AUTO) 11 % (12-44); MEAN CORPUSCULAR HEMOGLOBIN 33 pg (25-34); MEAN CORPUSCULAR HGB CONC 35 g/dL (32-36); MEAN CORPUSCULAR VOLUME 94 fL (80-99); MEAN PLATELET VOLUME 11.2 fL (9.0-12.2); MONOCYTES # (AUTO) 0.4 10^3/uL (0.0-1.0); MONOCYTES % (AUTO) 6 % (0-12); NEUTROPHILS # (AUTO) 5.3 10^3/uL (1.8-7.8); NEUTROPHILS % (AUTO) 79 % (42-75); PLATELET COUNT 220 10^3/uL (130-400); WHITE BLOOD COUNT 6.7 10^3/uL (4.3-11.0)
[2020-07-28 06:31] LABS: CALCIUM 7.5 MG/DL (8.5-10.1); CREATININE SERUM 1.2 MG/DL (0.60-1.30); MAGNESIUM 2.2 MG/DL (1.6-2.4); PHOSPHORUS 3.3 MG/DL (2.3-4.7); POTASSIUM 3.9 MMOL/L (3.6-5.0)
[2020-07-28 08:09] VITALS: BP 103/52
--- NOTE | 2020-07-28 08:56 | Occupational Ther Daily Note ---
OT Current Status-Daily Note Subjective Pt reports that she is tired. Does not arouse very well. Mental Status/Objective Patient Orientation: Unable to Assess Attachments: Carney Catheter, IV ADL-Treatment Therapy Code Descriptions/Definitions Functional [place] Measure: 0=Not Assessed/NA 4=Minimal Assistance 1=Total Assistance 5=Supervision or Setup 2=Maximal Assistance 6=Modified [place] 3=Moderate Assistance 7=Complete IndependenceSCALE: Activities may be completed with or without assistive devices. 8-Kzkcvkgqhq-hmohfmn completes the activity by him/herself with no assistance from a helper. 5-Set-up or Clean-up Assistance-helper sets up or cleans up; patient completes activity. [place] assists only prior to or following the activity. 4-Supervision or Touching Assistance-helper provides verbal cues and/or touching/steadying and/or contact guard assistance as patient completes activity. Assistance may be provided throughout the activity or intermittently. 3-Partial/Moderate Assistance-helper does LESS THAN HALF the effort. [place] lifts, holds or supports trunk or limbs, but provides less than half the effort. 2-Substantial/Maximal Assistance-helper does MORE THAN HALF the effort. [place] lifts or holds trunk or limbs and provides more than half the effort. 4-Mjdsbajtp-ckyqur does ALL the effort. Patient does none of the effort to complete the activity. Or, the assistance of 2 or more helpers is required for the patient to complete the activity. If activity was not attempted, code reason: 7-Patient Refused. 9-Not Applicable-not attempted and the patient did not perform the activity before the current illness, exacerbation or injury. 10-Not Attempted due to Environmental Limitations-(lack of equipment, weather restraints, etc.). 88-Not Attempted due to Medical Conditions or Safety Concerns. Other Treatment OT spoke with nursing before seeing pt. Nursing okay for OT to attempt. Pt. asleep but arouses some with OT conversing. Pt. indicates that she is tired and cold. OT attempts to engage pt. in any activity. Pt. does not participate. Breakfast at bedside and nursing reports pt. refused to eat. OT offered to pt. again, and pt. continues to refuse. Pt. does agree to a drink of water, but will not initiate holding water cup. Pt. drinks when straw is placed to mouth. Pt. does allow OT to complete bilateral UE PROM, as well as retrograde massage with use of lotion. OT asks pt. if she is comfortable and she is. Declines allowing OT to roll her in bed. OT positioned right UE on pillow for increased elevation. Pt. with call light. All needs met. Education OT Patient Education: Correct positioning, Modified ADL techniques Teaching Recipient: Patient Teaching Methods: Discussion Response to Teaching: Unable to Comprehend OT Alf Goals Alf Goals Time Frame: Aug 10, 2020 Eating (QC): 3 (Min assistance) Upper Body Dressing (QC): 3 (Mod assistance) Additional Goals: 1-Demonstrate ADL Tasks, 2-Verbalize Understanding, 3-ImproveStrength/Shimon 1=Demonstrate adherence to instructed precautions during ADL tasks. 2=Patient will verbalize/demonstrate understanding of assistive devices/modifications for ADL. 3=Patient will improve strength/tolerance for activity to enable patient to perform ADL's. OT Education/Plan Problem List/Assessment Assessment: Decreased Activ Tolerance, Decreased UE Strength, Dependent Transfers, Edema, Impaired Bed Mobility, Impaired Cognition, Impaired Coordination, Impaired Funct Balance, Impaired I ADL's, Impaired Self-Care Skills, Restricted Funct UE ROM Discharge Recommendations Plan/Recommendations: Continue POC Therapy Discharge Recommendati: 24 Hour Supervision Treatment Plan/Plan of Care Treatment,Training & Education: Yes Patient would benefit from OT for education, treatment and training to promote independence in ADL's, mobility, safety and/or upper extremity function for ADL's. Plan of Care: ADL Retraining, Functional Mobility, UE Funct Exercise/Act Treatment Duration: Aug 10, 2020 Frequency: 5 times per week Estimated Hrs Per Day: .25 hour per day Agreement: Yes Rehab Potential: Guarded Time/GCodes Start Time: 08:20 Stop Time: 08:30 Total Time Billed (hr/min): 10 Billed Treatment Time 1, Ex CHARLINEDEVANGGUS OT Jul 28, 2020 08:56
--- NOTE | 2020-07-28 09:03 | Pulmonary Progress Note ---
Subjective Time Seen by a Provider: 08:58 Subjective/Events-last exam No complications noted. Sepsis Event Evaluation Height, Weight, BMI Height: 5'0" Weight: 335lbs. 7.0oz. 152.283659mx; 49.00 BMI Method:Stated Focused Exam Lactate Level 07/25/20 09:13: Lactic Acid Level 1.73 07/25/20 17:00: Lactic Acid Level 1.10 Exam Exam Vital Signs Date Time Temp Pulse Resp B/P (MAP) Pulse Ox O2 Delivery O2 Flow Rate FiO2 07/28/20 08:09 36.2 73 20 103/52 (69) 93 Nasal Cannula 3.00 07/28/20 08:01 Nasal Cannula 3.00 07/28/20 07:00 71 07/28/20 04:28 36.6 84 18 111/76 (88) 93 Nasal Cannula 3.00 07/28/20 01:00 75 07/28/20 00:26 36.7 79 20 112/71 (85) 90 Nasal Cannula 2.00 07/27/20 21:30 Nasal Cannula 2.00 07/27/20 21:00 91 07/27/20 19:57 36.6 73 18 116/55 (75) 91 Nasal Cannula 2.00 07/27/20 19:00 73 07/27/20 16:00 36.0 74 18 106/56 (73) 94 Nasal Cannula 2.00 07/27/20 12:37 73 07/27/20 12:00 36.0 68 18 132/62 (85) 92 Nasal Cannula 2.00 07/27/20 09:00 Nasal Cannula 2.00 I & O 07/28/20 07:00 Intake Total 1970 ml Output Total 1400 ml Balance 570 ml Height & Weight Height: 5'0" Weight: 335lbs. 7.0oz. 152.143799rt; 49.00 BMI Method:Stated General Appearance: No Apparent Distress, WD/WN, Chronically ill, Obese HEENT: PERRL/EOMI, Normal ENT Inspection, Other (Oropharynx very dry) Neck: Normal Inspection Respiratory: Lungs Clear Cardiovascular: Regular Rate, Rhythm Capillary Refill: Less Than 3 Seconds Extremity: Normal Inspection, No Pedal Edema Neurologic/Psychiatric: Alert, Disoriented Results Lab Laboratory Tests 07/27/20 03:10 07/28/20 06:00 Assessment/Plan Assessment/Plan pulmonary edema with Hypoxia -Currently on 2 liters of oxygen -Check echo -Repeat CXR Anemia -Monitor Afib - Eliquis -monitor Acute on chronic Renal failure -Monitor SHARON JOSEPH DO Jul 28, 2020 09:03
[2020-07-28] MEDS ORDERED: MEROPENEM 500 MG/SWFI 10 ML IV PUSH IV SCH ×2 (10:00)
[2020-07-28] MEDS: FAMOTIDINE 20 MG (PEPCID) TABLET PO SCH (10:06)
[2020-07-28] MEDS: APIXABAN 5 MG (ELIQUIS) TABLET PO SCH ×2 (10:06→20:12)
[2020-07-28] MEDS: SENNA W/DOCUSATE (SENOKOT S) TABLET PO SCH ×2 (10:07→20:11)
[2020-07-28] MEDS: MEROPENEM 500 MG/SWFI 10 ML IV PUSH IV SCH ×6 (10:42→18:58)
--- NOTE | 2020-07-28 11:32 | Progress Note - Hospitalist ---
Subjective HPI/CC On Admission Date Seen by Provider: Jul 28, 2020 Time Seen by Provider: 11:00 CC: Hypotension with severe ARF HPI: This is a 79yoWF [facility] patient who presented to the ER with dizziness and found to have profound hypotension and ALFA. Patient is unable to provide any details. I reviewed meds and labs and images. Consulted Dr Andres. Patient has long hx of medical issues causing severe disability and is a DNR. Subjective/Events-last exam Patient still confused Overall prognosis very poor Chronic debility NH bound Supportive care to continue Review of Systems General: Fatigue Focused Exam Lactate Level Objective Exam Vital Signs Vital Signs Date Time Temp Pulse Resp B/P (MAP) Pulse Ox O2 Delivery O2 Flow Rate FiO2 07/29/20 04:22 36.6 81 20 133/56 (81) 96 High Flow N/C 4.00 Capillary Refill : Less Than 3 Seconds General Appearance: No Apparent Distress, WD/WN, Chronically ill Respiratory: Chest Non Tender, Lungs Clear, Normal Breath Sounds, No Accessory Muscle Use, No Respiratory Distress Cardiovascular: Regular Rate, Rhythm Neurologic/Psychiatric: Alert, Disoriented Results/Procedures Lab Laboratory Tests 07/29/20 05:46 Patient resulted labs reviewed. Assessment/Plan Assessment and Plan Assess & Plan/Chief Complaint Assessment: Hypotension ALFA AF DM OHS Hypoxia Plan: Monitor renal function IVF Dr Andres consult 07/26/20: Monitor closely 07/27/20 Very debilitated Poor prognosis 07/28/20: Monitor closely Clinical Quality Measures DVT/VTE Risk/Contraindication: Risk Factor Score Per Nursin RFS Level Per Nursing on Admit: 4+=Very High ILENE MCKEON DO Jul 28, 2020 11:32
[2020-07-28 11:40] VITALS: BP 106/55
--- NOTE | 2020-07-28 12:30 | Diagnostic Imaging Report ---
INDICATION: Shortness of air. COMPARISON: 07/26/2020 FINDINGS: Single frontal radiographic view of the chest was obtained and again demonstrates diffuse interstitial infiltrates with a few scattered areas of more confluent alveolar opacity. There has been interval progression of airspace disease within the left mid and lower lung field. There is no large effusion or pneumothorax. Cardiac silhouette is mildly enlarged. Right internal jugular central venous catheter seen with tip in the low SVC. Osseous structures show no acute abnormalities. IMPRESSION: 1. Persistent bilateral diffuse infiltrates with interval progression of airspace disease in the left mid and lower lung field. Dictated by: Dictated on workstation # [id number]
--- NOTE | 2020-07-28 13:41 | Physical Therapy Progress Note ---
Therapy Progress Note Patient adamantly declined PT. Patient would not open her eyes but repeated, "I want to go home and go to bed." RN notified. Will attempt in a.m. 1 ref ([id number]) FREDDY WILKINSON PT Jul 28, 2020 13:41
[2020-07-28 16:29] VITALS: BP 110/54
[2020-07-28] MEDS: LACTATED RINGERS 1,000 ML IV SCH (19:00)
[2020-07-28 20:29] VITALS: BP 119/54
[2020-07-29 00:43] VITALS: BP 98/58
[2020-07-29] MEDS: MEROPENEM 500 MG/SWFI 10 ML IV PUSH IV SCH ×6 (03:54→18:33)
[2020-07-29 04:22] VITALS: BP 133/56
[2020-07-29 05:56] LABS: BASOPHILS % (AUTO) 0 % (0-10); EOSINOPHILS # (AUTO) 0.1 10^3/uL (0.0-0.3); EOSINOPHILS % (AUTO) 2 % (0-10); HEMATOCRIT 28 % (35-52); HEMOGLOBIN 9.5 g/dL (11.5-16.0); LYMPHOCYTES % (AUTO) 13 % (12-44); MEAN CORPUSCULAR HEMOGLOBIN 32 pg (25-34); MEAN CORPUSCULAR HGB CONC 34 g/dL (32-36); MEAN CORPUSCULAR VOLUME 94 fL (80-99); MEAN PLATELET VOLUME 10.8 fL (9.0-12.2); MONOCYTES # (AUTO) 0.6 10^3/uL (0.0-1.0); MONOCYTES % (AUTO) 8 % (0-12); NEUTROPHILS # (AUTO) 5.6 10^3/uL (1.8-7.8); NEUTROPHILS % (AUTO) 75 % (42-75); PLATELET COUNT 231 10^3/uL (130-400); WHITE BLOOD COUNT 7.4 10^3/uL (4.3-11.0)
[2020-07-29 06:15] LABS: POTASSIUM 3.8 MMOL/L (3.6-5.0)
[2020-07-29 06:16] LABS: CALCIUM 7.7 MG/DL (8.5-10.1)
[2020-07-29 06:20] LABS: CREATININE SERUM 0.99 MG/DL (0.60-1.30); PHOSPHORUS 2.6 MG/DL (2.3-4.7)
[2020-07-29 06:23] LABS: MAGNESIUM 1.8 MG/DL (1.6-2.4)
[2020-07-29 08:00] VITALS: BP 104/54
[2020-07-29] MEDS: APIXABAN 5 MG (ELIQUIS) TABLET PO SCH ×2 (09:11→21:13)
[2020-07-29] MEDS: FAMOTIDINE 20 MG (PEPCID) TABLET PO SCH (09:11)
[2020-07-29] MEDS: SENNA W/DOCUSATE (SENOKOT S) TABLET PO SCH ×2 (09:11→21:09)
--- NOTE | 2020-07-29 10:02 | Physical Therapy Daily Note ---
PT Daily Note-Current Subjective Patient in bed pre tx, agrees and disagrees to participate in PT, she is very confused, with cues she attempts to get out of bed, no complaints of pain Appearance Patient in bed post tx with nurse call, phone, tray, all needs met. Bed alarm on. Mental Status Patient Orientation: Confused Attachments: SCD's, Oxygen, Carney Catheter, IV Transfers SCALE: Activities may be completed with or without assistive devices. 8-Gyepdwteef-ymiykcg completes the activity by him/herself with no assistance from a helper. 5-Set-up or Clean-up Assistance-helper sets up or cleans up; patient completes a ctivity. [place] assists only prior to or following the activity. 4-Supervision or Touching Assistance-helper provides verbal cues and/or touching/steadying and/or contact guard assistance as patient completes activity. Assistance may be provided throughout the activity or intermittently. 3-Partial/Moderate Assistance-helper does LESS THAN HALF the effort. [place] lifts, holds or supports trunk or limbs, but provides less than half the effort. 2-Substantial/Maximal Assistance-helper does MORE THAN HALF the effort. [place] lifts or holds trunk or limbs and provides more than half the effort. 9-Vlytrtcfy-lljlzh does ALL the effort. Patient does none of the effort to complete the activity. Or, the assistance of 2 or more helpers is required for the patient to complete the activity. If activity was not attempted, code reason: 7-Patient Refused. 9-Not Applicable-not attempted and the patient did not perform the activity before the current illness, exacerbation or injury. 10-Not Attempted due to Environmental Limitations-(lack of equipment, weather restraints, etc.). 88-Not Attempted due to Medical Conditions or Safety Concerns. Roll Left & Right (QC): 3 Lying to Sitting/Side of Bed(Q: 3 Assist patient with both legs and trunk to sit on the side of the bed, she just about gets all the way and then says "I'm pooped" and lays back down forcefully on her own. She refuses to participate after this but does perform a couple of LE exercises in bed. Exercises Supine Ex: Ankle pumps, Heel Slides (AAROM) Supine Reps: 10 Treatments bed mobility, attempted sitting, LE exercise Assessment Current Status: Poor Progress confusion, poor participation PT [facility] Sitter Goals [facility] Goals PT [facility] Goals Time Frame: Aug 03, 2020 Roll Left & Right (QC): 2 Sit to Lying (QC): 2 Lying-Sitting on Side/Bed(QC): 2 PT Plan Problem List Problem List: Activity Tolerance, Functional Strength, Safety, Balance, Gait, Transfer, Bed Mobility, ROM Treatment/Plan Treatment Plan: Continue Plan of Care Treatment Plan: Bed Mobility, Education, Functional Activity Shimon, Functional Strength, Gait, Safety, Therapeutic Exercise, Transfers Treatment Duration: Aug 03, 2020 Frequency: 6 times per week Estimated Hrs Per Day: .25 hour per day Patient and/or Family Agrees t: Yes Safety Risks/Education Patient Education: Transfer Techniques, Correct Positioning, Safety Issues Teaching Recipient: Patient Teaching Methods: Demonstration, Discussion Response to Teaching: Reinforcement Needed Time/GCodes Time In: 924 Time Out: 932 Total Billed Treatment Time: 8 Total Billed Treatment 1 visit FA 8' SANDRA HENLEY PT Jul 29, 2020 10:02
[2020-07-29 12:00] VITALS: BP 93/51
[2020-07-29] MEDS: LACTATED RINGERS 1,000 ML IV SCH ×2 (12:03→21:16)
--- NOTE | 2020-07-29 12:12 | Progress Note - Hospitalist ---
Subjective HPI/CC On Admission Date Seen by Provider: Jul 29, 2020 Time Seen by Provider: 12:00 CC: Hypotension with severe ARF HPI: This is a 79yoWF [facility] patient who presented to the ER with dizziness and found to have profound hypotension and ALFA. Patient is unable to provide any details. I reviewed meds and labs and images. Consulted Dr Andres. Patient has long hx of medical issues causing severe disability and is a DNR. Subjective/Events-last exam Patient confused Very debilitated Spoke to [facility] and they will sign up for hospice and bring her home Saturday Review of Systems General: Fatigue, Malaise Neurological: Confusion Objective Exam Vital Signs Vital Signs Date Time Temp Pulse Resp B/P (MAP) Pulse Ox O2 Delivery O2 Flow Rate FiO2 07/29/20 16:21 36.2 84 20 117/60 (79) 96 Nasal Cannula 3.00 Capillary Refill : Less Than 3 SecondsLess Than 3 Seconds General Appearance: No Apparent Distress, WD/WN, Chronically ill, Obese Respiratory: Lungs Clear Cardiovascular: Regular Rate, Rhythm Neurologic/Psychiatric: Alert, Disoriented Results/Procedures Lab Laboratory Tests 07/29/20 05:46 Patient resulted labs reviewed. Assessment/Plan Assessment and Plan Assess & Plan/Chief Complaint Assessment: Hypotension ALFA AF DM OHS Hypoxia Plan: Monitor renal function IVF Dr Andres consult 07/26/20: Monitor closely 07/27/20 Very debilitated Poor prognosis 07/28/20: Monitor closely 07/29/20: Needs Hospice on Saturday Spoke to [facility] Clinical Quality Measures DVT/VTE Risk/Contraindication: Risk Factor Score Per Nursin RFS Level Per Nursing on Admit: 4+=Very High ILENE MCKEON DO Jul 29, 2020 12:12
--- NOTE | 2020-07-29 13:23 | Occupational Ther Daily Note ---
OT Current Status-Daily Note Subjective Pt is alert in bed, frantically asking OT to help pt get out of bed. Pt's nurse is notified, pt's nurse states pt should not come from bed and to ensure bed alarm and door open upon exit. OT reenters, pt is redirected to take sponge bath. Pt agrees. Pt does not state pain, though states many statements such as, "I'm not stupid," "I don't hit 3 year old children," etc. ADL-Treatment Therapy Code Descriptions/Definitions Functional [place] Measure: 0=Not Assessed/NA 4=Minimal Assistance 1=Total Assistance 5=Supervision or Setup 2=Maximal Assistance 6=Modified [place] 3=Moderate Assistance 7=Complete IndependenceSCALE: Activities may be completed with or without assistive devices. 5-Zyqlvgallp-dfusqpd completes the activity by him/herself with no assistance from a helper. 5-Set-up or Clean-up Assistance-helper sets up or cleans up; patient completes activity. [place] assists only prior to or following the activity. 4-Supervision or Touching Assistance-helper provides verbal cues and/or touching/steadying and/or contact guard assistance as patient completes activity. Assistance may be provided throughout the activity or intermittently. 3-Partial/Moderate Assistance-helper does LESS THAN HALF the effort. [place] lifts, holds or supports trunk or limbs, but provides less than half the effort. 2-Substantial/Maximal Assistance-helper does MORE THAN HALF the effort. [place] lifts or holds trunk or limbs and provides more than half the effort. 3-Aqdvuxjhr-bdurfd does ALL the effort. Patient does none of the effort to complete the activity. Or, the assistance of 2 or more helpers is required for the patient to complete the activity. If activity was not attempted, code reason: 7-Patient Refused. 9-Not Applicable-not attempted and the patient did not perform the activity before the current illness, exacerbation or injury. 10-Not Attempted due to Environmental Limitations-(lack of equipment, weather restraints, etc.). 88-Not Attempted due to Medical Conditions or Safety Concerns. Eating (QC): 3 (pt desires drink. OT brings drink to mouth, pt able to utilize straw though does not hold cup. ) Bathing Location: L Arm, R Arm Shower/Bathe Self (QC): 2 (Pt is handed cloth to wash face. Pt washes hands and disgards. Pt is given added cloth for face with instruction to wash face. Pt states, "I just did," OT states pt has washed hands and would benefit from face washing. Pt states, "I'm not stupid," OT agrees and asks pt to continue washing other body parts. Pt does not initiate any other area, though directs OT to make sure cloths are warmer. OT completes LEs/ graciela area (pt unable), and BUE. Pt denies rolling for bottom care. ) Toileting Hygiene (QC): 7 Other Treatment Pt in bed/ supine. Pt confused/ slightly agitated. Pt completes modified sponge bath/ feeding as outlined. Requires increased redirection and attention to task. Pt remains in bed end of session, all needs met, call light in reach, OT assists in finding channel suited for pt's liking, and bed alarm on, door remains open. Education OT Patient Education: Modified ADL techniques, Purpose of tx/functional a ctivities Teaching Recipient: Patient Teaching Methods: Demonstration, Discussion Response to Teaching: Unable to Return Demonstration, Unable to Comprehend, Reinforcement Needed OT [facility] Goals [facility] Goals Time Frame: Aug 10, 2020 Eating (QC): 3 (Min assistance) Upper Body Dressing (QC): 3 (Mod assistance) Additional Goals: 1-Demonstrate ADL Tasks, 2-Verbalize Understanding, 3- ImproveStrength/Shimon 1=Demonstrate adherence to instructed precautions during ADL tasks. 2=Patient will verbalize/demonstrate understanding of assistive devices/modifications for ADL. 3=Patient will improve strength/tolerance for activity to enable patient to perform ADL's. OT Education/Plan Problem List/Assessment Assessment: Decreased Activ Tolerance, Decreased Safety Aware, Decreased UE Strength, Dependent Transfers, Impaired Bed Mobility, Impaired Cognition, Impaired Funct Balance, Impaired I ADL's, Impaired Self-Care Skills Discharge Recommendations Plan/Recommendations: Continue POC Therapy Discharge Recommendati: 24 Hour Supervision Treatment Plan/Plan of Care Treatment,Training & Education: Yes Patient would benefit from OT for education, treatment and training to promote independence in ADL's, mobility, safety and/or upper extremity function for ADL's. Plan of Care: ADL Retraining, Functional Mobility, UE Funct Exercise/Act Treatment Duration: Aug 10, 2020 Frequency: 5 times per week Estimated Hrs Per Day: .25 hour per day Agreement: Yes Rehab Potential: Guarded Time/GCodes Start Time: 10:29 Stop Time: 10:42 Total Time Billed (hr/min): 13 Billed Treatment Time 1, ADL (13) BIRGIT CLEMENTE OTR Jul 29, 2020 13:23
[2020-07-29 16:21] VITALS: BP 117/60
[2020-07-29 19:25] VITALS: BP 117/55
[2020-07-29] MEDS: ALPRAZolam 0.25 MG (XANAX) TAB PO PRN (21:13)
[2020-07-30] VITALS (7 sets, daily range): BP systolic 100–133; BP diastolic 53–77
[2020-07-30] MEDS: MEROPENEM 500 MG/SWFI 10 ML IV PUSH IV SCH ×6 (04:17→17:24)
[2020-07-30 05:49] LABS: BASOPHILS % (AUTO) 0 % (0-10); EOSINOPHILS # (AUTO) 0.1 10^3/uL (0.0-0.3); EOSINOPHILS % (AUTO) 1 % (0-10); HEMATOCRIT 28 % (35-52); HEMOGLOBIN 9.6 g/dL (11.5-16.0); LYMPHOCYTES % (AUTO) 11 % (12-44); MEAN CORPUSCULAR HEMOGLOBIN 33 pg (25-34); MEAN CORPUSCULAR HGB CONC 35 g/dL (32-36); MEAN CORPUSCULAR VOLUME 94 fL (80-99); MEAN PLATELET VOLUME 10.9 fL (9.0-12.2); MONOCYTES # (AUTO) 0.8 10^3/uL (0.0-1.0); MONOCYTES % (AUTO) 9 % (0-12); NEUTROPHILS # (AUTO) 7.1 10^3/uL (1.8-7.8); NEUTROPHILS % (AUTO) 77 % (42-75); PLATELET COUNT 251 10^3/uL (130-400); WHITE BLOOD COUNT 9.2 10^3/uL (4.3-11.0)
[2020-07-30 06:09] LABS: POTASSIUM 3.7 MMOL/L (3.6-5.0)
[2020-07-30 06:10] LABS: CALCIUM 7.7 MG/DL (8.5-10.1)
[2020-07-30 06:14] LABS: PHOSPHORUS 2.3 MG/DL (2.3-4.7)
[2020-07-30 06:15] LABS: CREATININE SERUM 0.91 MG/DL (0.60-1.30)
[2020-07-30 06:17] LABS: MAGNESIUM 1.7 MG/DL (1.6-2.4)
--- NOTE | 2020-07-30 07:21 | Progress Note - Hospitalist ---
Subjective HPI/CC On Admission Date Seen by Provider: Jul 30, 2020 Time Seen by Provider: 10:00 CC: Hypotension with severe ARF HPI: This is a 79yoWF long-term patient who presented to the ER with dizziness and found to have profound hypotension and ALFA. Patient is unable to provide any details. I reviewed meds and labs and images. Consulted Dr Andres. Patient has long hx of medical issues causing severe disability and is a DNR. Subjective/Events-last exam Patient more confused and declined Hospice to be arranged tomorrow Yelling out and very confused Jenniffer to be DC today has completed Review of Systems General: Fatigue Neurological: Confusion Objective Exam Vital Signs Vital Signs Date Time Temp Pulse Resp B/P (MAP) Pulse Ox O2 Delivery O2 Flow Rate FiO2 07/30/20 23:25 36.1 77 20 104/56 (72) 91 Nasal Cannula 4.00 Capillary Refill : Less Than 3 SecondsLess Than 3 Seconds General Appearance: No Apparent Distress, WD/WN, Chronically ill, Obese Respiratory: Lungs Clear Cardiovascular: Regular Rate, Rhythm Neurologic/Psychiatric: Disoriented Results/Procedures Lab Laboratory Tests 07/31/20 05:45 Patient resulted labs reviewed. Assessment/Plan Assessment and Plan Assess & Plan/Chief Complaint Assessment: Hypotension ALFA AF DM OHS Hypoxia Plan: Monitor renal function IVF Dr Andres consult 07/26/20: Monitor closely 07/27/20 Very debilitated Poor prognosis 07/28/20: Monitor closely 07/29/20: Needs Hospice on Saturday Spoke to [facility] 07/30/20: DC Saturday to home with hospice Clinical Quality Measures DVT/VTE Risk/Contraindication: Risk Factor Score Per Nursin RFS Level Per Nursing on Admit: 4+=Very High ILENE MCKEON DO Jul 30, 2020 07:21
[2020-07-30] MEDS: SENNA W/DOCUSATE (SENOKOT S) TABLET PO SCH ×2 (08:36→19:42)
[2020-07-30] MEDS: APIXABAN 5 MG (ELIQUIS) TABLET PO SCH ×2 (08:39→19:42)
[2020-07-30] MEDS: FAMOTIDINE 20 MG (PEPCID) TABLET PO SCH (08:39)
--- NOTE | 2020-07-30 10:18 | Physical Therapy Daily Note ---
PT Daily Note-Current Subjective Patient in bed pre tx, agrees to PT, says yes when asked if she would like to get out of bed and into a recliner. Patient voices no complaints of pain. Appearance Patient in bed post tx with nurse call, phone, tray, all needs met. Mental Status Patient Orientation: Person, Confused Attachments: Oxygen, Carney Catheter Transfers SCALE: Activities may be completed with or without assistive devices. 8-Kypspldyly-uztzceh completes the activity by him/herself with no assistance from a helper. 5-Set-up or Clean-up Assistance-helper sets up or cleans up; patient completes activity. [place] assists only prior to or following the activity. 4-Supervision or Touching Assistance-helper provides verbal cues and/or to uching/steadying and/or contact guard assistance as patient completes activity. Assistance may be provided throughout the activity or intermittently. 3-Partial/Moderate Assistance-helper does LESS THAN HALF the effort. [place] lifts, holds or supports trunk or limbs, but provides less than half the effort. 2-Substantial/Maximal Assistance-helper does MORE THAN HALF the effort. [place] lifts or holds trunk or limbs and provides more than half the effort. 6-Lolgknatk-szygwp does ALL the effort. Patient does none of the effort to complete the activity. Or, the assistance of 2 or more helpers is required for the patient to complete the activity. If activity was not attempted, code reason: 7-Patient Refused. 9-Not Applicable-not attempted and the patient did not perform the activity before the current illness, exacerbation or injury. 10-Not Attempted due to Environmental Limitations-(lack of equipment, weather restraints, etc.). 88-Not Attempted due to Medical Conditions or Safety Concerns. Attempted to get patient to sit on the side of the bed. Started moving her legs and she said "stop, im not going anywhere". Educated patient on the benefits of out of bed activity and she continues to refuse, she refuses to perform LE exercise in bed too, she says she just wants to get covered back up and go to sleep. Treatments bed mobility Assessment Current Status: Poor Progress poor motivation, confused, refuses tx PT [facility] Goals PT Handle Machine Operator Goals Time Frame: Aug 03, 2020 Roll Left & Right (QC): 2 Sit to Lying (QC): 2 Lying-Sitting on Side/Bed(QC): 2 PT Plan Problem List Problem List: Activity Tolerance, Functional Strength, Safety, Balance, Gait, Transfer, Bed Mobility, ROM Treatment/Plan Treatment Plan: Continue Plan of Care Treatment Plan: Bed Mobility, Education, Functional Activity Shimon, Functional Strength, Gait, Safety, Therapeutic Exercise, Transfers Treatment Duration: Aug 03, 2020 Frequency: 6 times per week Estimated Hrs Per Day: .25 hour per day Patient and/or Family Agrees t: Yes Safety Risks/Education Patient Education: Correct Positioning, Safety Issues Teaching Recipient: Patient Teaching Methods: Demonstration, Discussion Response to Teaching: Reinforcement Needed Time/GCodes Time In: 0949 Time Out: 09 Total Billed Treatment Time: 6 Total Billed Treatment no charge for 6 min SANDRA HENLEY PT Jul 30, 2020 10:18
[2020-07-30] MEDS: LACTATED RINGERS 1,000 ML IV SCH (17:23)
[2020-07-31] MEDS: ALPRAZolam 0.25 MG (XANAX) TAB PO PRN ×2 (00:11→15:45)
[2020-07-31 06:00] LABS: BASOPHILS % (AUTO) 0 % (0-10); EOSINOPHILS # (AUTO) 0.1 10^3/uL (0.0-0.3); EOSINOPHILS % (AUTO) 2 % (0-10); HEMATOCRIT 25 % (35-52); HEMOGLOBIN 8.7 g/dL (11.5-16.0); LYMPHOCYTES # (AUTO) 1.2 10^3/uL (1.0-4.0); LYMPHOCYTES % (AUTO) 20 % (12-44); MEAN CORPUSCULAR HEMOGLOBIN 33 pg (25-34); MEAN CORPUSCULAR HGB CONC 35 g/dL (32-36); MEAN CORPUSCULAR VOLUME 95 fL (80-99); MEAN PLATELET VOLUME 10.6 fL (9.0-12.2); MONOCYTES # (AUTO) 0.6 10^3/uL (0.0-1.0); MONOCYTES % (AUTO) 10 % (0-12); NEUTROPHILS # (AUTO) 3.9 10^3/uL (1.8-7.8); NEUTROPHILS % (AUTO) 65 % (42-75); PLATELET COUNT 243 10^3/uL (130-400)
[2020-07-31 06:16] LABS: CHLORIDE 111 MMOL/L (98-107); POTASSIUM 3.7 MMOL/L (3.6-5.0); SODIUM 141 MMOL/L (135-145)
[2020-07-31 06:17] LABS: CALCIUM 7.5 MG/DL (8.5-10.1)
[2020-07-31 06:18] LABS: GLUCOSE 75 MG/DL (70-105)
[2020-07-31 06:19] LABS: CARBON DIOXIDE 23 MMOL/L (21-32)
[2020-07-31 06:21] LABS: PHOSPHORUS 2.4 MG/DL (2.3-4.7)
[2020-07-31 06:22] LABS: BUN/CREATININE RATIO 31; CREATININE SERUM 0.81 MG/DL (0.60-1.30); GFR ESTIMATED > 60
[2020-07-31 06:24] LABS: MAGNESIUM 1.7 MG/DL (1.6-2.4)
[2020-07-31 08:00] VITALS: BP 111/70
[2020-07-31] MEDS: SENNA W/DOCUSATE (SENOKOT S) TABLET PO SCH ×2 (09:13→19:42)
[2020-07-31] MEDS: FAMOTIDINE 20 MG (PEPCID) TABLET PO SCH (09:14)
[2020-07-31] MEDS: APIXABAN 5 MG (ELIQUIS) TABLET PO SCH ×2 (09:14→19:42)
--- NOTE | 2020-07-31 12:29 | Progress Note - Hospitalist ---
Subjective HPI/CC On Admission Date Seen by Provider: Jul 31, 2020 Time Seen by Provider: 11:30 CC: Hypotension with severe ARF HPI: This is a 79yoWF longterm patient who presented to the ER with dizziness and found to have profound hypotension and ALFA. Patient is unable to provide any details. I reviewed meds and labs and images. Consulted Dr Andres. Patient has long hx of medical issues causing severe disability and is a DNR. Subjective/Events-last exam More alert today Confusion is present Hospice at [place] tomorrow placed SW order Review of Systems Neurological: Confusion Objective Exam Vital Signs Vital Signs Date Time Temp Pulse Resp B/P (MAP) Pulse Ox O2 Delivery O2 Flow Rate FiO2 07/31/20 16:35 36.6 71 18 104/56 (72) 96 Nasal Cannula 4.00 Capillary Refill : Less Than 3 SecondsLess Than 3 Seconds General Appearance: No Apparent Distress, WD/WN, Chronically ill, Obese Respiratory: Lungs Clear Cardiovascular: Regular Rate, Rhythm Neurologic/Psychiatric: Alert, Disoriented Results/Procedures Lab Laboratory Tests 07/31/20 05:45 Patient resulted labs reviewed. Assessment/Plan Assessment and Plan Assess & Plan/Chief Complaint Assessment: Hypotension ALFA AF DM OHS Hypoxia Plan: Monitor renal function IVF Dr Andres consult 07/26/20: Monitor closely 07/27/20 Very debilitated Poor prognosis 07/28/20: Monitor closely 07/29/20: Needs Hospice on Saturday Spoke to OA 07/30/20: DC Saturday to home with hospice 07/31/20: No med changes Completed abx Monitor closely Hospice at [place] tomorrow Clinical Quality Measures DVT/VTE Risk/Contraindication: Risk Factor Score Per Nursin RFS Level Per Nursing on Admit: 4+=Very High ILENE MCKEON DO Jul 31, 2020 12:29
[2020-07-31] MEDS: LACTATED RINGERS 1,000 ML IV SCH (13:50)
[2020-07-31 16:35] VITALS: BP 104/56
[2020-08-01] VITALS: BP 118/57
[2020-08-01 06:13] LABS: BASOPHILS % (AUTO) 0 % (0-10); EOSINOPHILS # (AUTO) 0.1 10^3/uL (0.0-0.3); EOSINOPHILS % (AUTO) 2 % (0-10); HEMATOCRIT 27 % (35-52); HEMOGLOBIN 9.2 g/dL (11.5-16.0); LYMPHOCYTES # (AUTO) 1.4 10^3/uL (1.0-4.0); LYMPHOCYTES % (AUTO) 23 % (12-44); MEAN CORPUSCULAR HEMOGLOBIN 33 pg (25-34); MEAN CORPUSCULAR HGB CONC 34 g/dL (32-36); MEAN CORPUSCULAR VOLUME 95 fL (80-99); MEAN PLATELET VOLUME 9.9 fL (9.0-12.2); MONOCYTES # (AUTO) 0.6 10^3/uL (0.0-1.0); MONOCYTES % (AUTO) 11 % (0-12); NEUTROPHILS # (AUTO) 3.7 10^3/uL (1.8-7.8); NEUTROPHILS % (AUTO) 62 % (42-75); PLATELET COUNT 272 10^3/uL (130-400)
[2020-08-01 06:22] LABS: CHLORIDE 108 MMOL/L (98-107); POTASSIUM 3.9 MMOL/L (3.6-5.0); SODIUM 139 MMOL/L (135-145)
[2020-08-01 06:23] LABS: CALCIUM 7.5 MG/DL (8.5-10.1)
[2020-08-01 06:24] LABS: GLUCOSE 74 MG/DL (70-105)
[2020-08-01 06:25] LABS: CARBON DIOXIDE 23 MMOL/L (21-32)
[2020-08-01 06:27] LABS: PHOSPHORUS 2.3 MG/DL (2.3-4.7)
[2020-08-01 06:28] LABS: CREATININE SERUM 0.79 MG/DL (0.60-1.30); GFR ESTIMATED > 60
[2020-08-01 06:29] LABS: BUN/CREATININE RATIO 25
[2020-08-01 06:30] LABS: MAGNESIUM 1.7 MG/DL (1.6-2.4)
--- NOTE | 2020-08-01 07:32 | Pulmonary Progress Note ---
Subjective Time Seen by a Provider: 07:29 Subjective/Events-last exam Pt is now requiring 4 liters of oxygen. Sepsis Event Evaluation Height, Weight, BMI Height: 5'0" Weight: 335lbs. 7.0oz. 152.604596qt; 49.00 BMI Method:Stated Exam Exam Vital Signs Date Time Temp Pulse Resp B/P (MAP) Pulse Ox O2 Delivery O2 Flow Rate FiO2 08/01/20 00:00 36.5 83 17 118/57 (77) 95 Nasal Cannula 4.00 07/31/20 21:16 Nasal Cannula 4.00 07/31/20 20:00 Nasal Cannula 4.00 07/31/20 16:35 36.6 71 18 104/56 (72) 96 Nasal Cannula 4.00 07/31/20 09:00 Nasal Cannula 3.00 07/31/20 08:00 36.0 74 18 111/70 (84) 97 Nasal Cannula 4.00 I & O 08/01/20 07:00 Intake Total 2300 ml Output Total 550 ml Balance 1750 ml Height & Weight Height: 5'0" Weight: 335lbs. 7.0oz. 152.518431hl; 49.00 BMI Method:Stated General Appearance: No Apparent Distress, WD/WN, Chronically ill, Obese HEENT: PERRL/EOMI, Normal ENT Inspection, Other (Oropharynx very dry) Neck: Normal Inspection Respiratory: Lungs Clear Cardiovascular: Regular Rate, Rhythm Capillary Refill: Less Than 3 Seconds Extremity: Normal Inspection, No Pedal Edema Neurologic/Psychiatric: Alert, Disoriented Results Lab Laboratory Tests 07/31/20 05:45 08/01/20 06:00 Assessment/Plan Assessment/Plan pulmonary edema with Hypoxia -Currently on 4 liters of oxygen -echo 60-65% -Repeat CXR Anemia -Monitor Afib - Eliquis -monitor Acute on chronic Renal failure -Monitor SHARON JOSEPH DO Aug 01, 2020 07:32
[2020-08-01 08:00] VITALS: BP 98/59
[2020-08-01] MEDS: FAMOTIDINE 20 MG (PEPCID) TABLET PO SCH (08:42)
[2020-08-01] MEDS: APIXABAN 5 MG (ELIQUIS) TABLET PO SCH (08:42)
[2020-08-01] MEDS: SENNA W/DOCUSATE (SENOKOT S) TABLET PO SCH (08:42)
--- NOTE | 2020-08-01 09:59 | Diagnostic Imaging Report ---
INDICATION: Hypoxia. COMPARISON: 07/28/2020 FINDINGS: Single frontal radiographic view of the chest was obtained and again demonstrates scattered patchy and confluent infiltrates. Overall, there has been mild interval improved aeration. There is no large effusion or pneumothorax. Cardiac silhouette and pulmonary vasculature are within normal limits. Hiatal hernia is present. Osseous structures show no adverse interval change. Right internal jugular central venous catheter is again noted. IMPRESSION:. Persistent, but improved infiltrates. Dictated by: Dictated on workstation # [id number]
--- NOTE | 2020-08-01 14:32 | Discharge Summary ---
Discharge Summary Hospital Course Hospital Course Date of Admission: Jul 25, 2020 at 12:25 Admission Diagnosis : Sepsis Urinary tract infection Pneumonia Hypotension Diarrhea ALFA Atrial fibrillation DM Hypoxia Altered mental status Morbid obesity, BMI 47 Lymphedema Family Physician/Provider: [facility] Date of Discharge: 08/01/20 Sepsis Urinary tract infection Pneumonia Hypotension Diarrhea ALFA Atrial fibrillation DM Hypoxia Altered mental status Morbid obesity, BMI 47 Lymphedema Hospital Course: 79 yo [facility] with severe diarrhea and low blood pressure, found to have sepsis with urinary tract infection and pneumonia with hypoxia. [facility] after going home from a hospitalization in [place] for acute on chronic lymphedema, and was unable to function at home, requiring up to 5 people to assist with transfers and having to call EMS for transfers, so decision was made to admit to nursing facility. The plan was for her to go home from nursing facility in the near future, but she was admitted with the above acute illness. She was treated with meropenem for her infection (urine culture grew E coli, Klebsiella and proteus) and was negative for covid, influenza and c diff. She was not having frequent stools and her kidney injury improved with fluid resuscitation, but she was still requiring 4 lpm supplemental oxygen. In spite of this, she continued to be confused and unable to transfer. Dr. Dukes discussed with RUBIA (and per social work, DPOA reported she had extensive conversation with Dr. Dukes) and family decided they wanted patient to go home with hospice services. I called DPOA on day of d/c as well to confirm plans, but was unable to reach her and confirmed with social work that she had spoken with DPOA and they did want to have Maura discharged to home with hospice services. Because she was transitioning to hospice services, I did discontinue some of her medications that would not clearly contribute to comfort for her. Labs and Pending Lab Test: Laboratory Tests 08/01/20 06:00: White Blood Count 6.0, Red Blood Count 2.83L, Hemoglobin 9.2L, Hematocrit 27L, Mean Corpuscular Volume 95, Mean Corpuscular Hemoglobin 33, Mean Corpuscular Hemoglobin Concent 34, Red Cell Distribution Width 16.7H, Platelet Count 272, Mean Platelet Volume 9.9, Immature Granulocyte % (Auto) 2, Neutrophils (%) (Auto) 62, Lymphocytes (%) (Auto) 23, Monocytes (%) (Auto) 11, Eosinophils (%) (Auto) 2, Basophils (%) (Auto) 0, Neutrophils # (Auto) 3.7, Lymphocytes # (Auto) 1.4, Monocytes # (Auto) 0.6, Eosinophils # (Auto) 0.1, Basophils # (Auto) 0.0, Immature Granulocyte # (Auto) 0.1, Sodium Level 139, Potassium Level 3.9, Chloride Level 108H, Carbon Dioxide Level 23, Anion Gap 8, Blood Urea Nitrogen 20H, Creatinine 0.79, Estimat Glomerular Filtration Rate > 60, BUN/Creatinine Ratio 25, Glucose Level 74, Calcium Level 7.5L, Phosphorus Level 2.3, Magnesium Level 1.7 Microbiology 07/29/20 C. difficile GDH Antigen & Toxins - Final, Complete 07/25/20 Blood Culture - Final, Complete No growth 07/25/20 Urine Culture - Final, Complete Klebsiella pneumoniae Escherichia coli Proteus mirabilis 07/25/20 Influenza Types A,B Antigen (SHANNAN) - Final, Complete Home Meds Active Reported Nystatin 15 Gm Powder 1 Applic TOP BID PRN APPLY TO BILATERAL UNDER ARMS Multiple Vitamin (Multivitamin with Minerals) 1 Each Tablet 1 Each PO DAILY Zofran (Ondansetron HCl) 4 Mg Tab 4 Mg PO Q8H PRN Famotidine 20 Mg Tablet 20 Mg PO HS Bisacodyl 10 Mg Supp.rect 10 Mg RC Q72H PRN GIVE IF NO BM DOCUMENTED Miralax (Polyethylene Glycol 3350) 17 Gm Powd.pack 17 Gm PO DAILY Sertraline HCl 100 Mg Tablet 100 Mg PO HS Flonase Allergy Relief (Fluticasone Propionate) 9.9 Ml [place].susp 2 [place] NS DAILY Tylenol Extra Strength (Acetaminophen) 500 Mg Tablet 500-1,000 Mg PO Q4H PRN Symbicort 160-4.5 Mcg Inhaler (Budesonide/Formoterol Fumarate) 10.2 Gm Hfa.aer.ad 2 Puff IH BID RINSE MOUTH WITH WATER AFTER USE- DO NOT SWALLOW Ventolin Hfa (Albuterol Sulfate) 1 Puff Puff 2 Puff INH QID PRN Cyclobenzaprine HCl 10 Mg Tablet 10 Mg PO TID PRN Oxycodone-Acetaminophen 10-325 (Oxycodone HCl/Acetaminophen) 1 Each Tablet 1 Tab PO TID Levocetirizine Dihydrochloride 5 Mg Tablet 5 Mg PO DAILY Dexilant (Dexlansoprazole) 60 Mg bp 60 Mg PO DAILY Montelukast Sodium 10 Mg Tablet 10 Mg PO HS Assessment/Pt DC Instructions Discharged to home with hospice services Activity as Tolerated: Yes Orders-Post D/C & Referrals Patient needs Gala lift at home Pneu Vac Indicated: Yes Discharge Physical Examination Allergies: Coded Allergies: penicillin G (Verified Allergy, Unknown, 07/08/06) General Appearance: Anxious, Obese Respiratory: Decreased Breath Sounds Cardiovascular: Regular Rate, Rhythm Gastrointestinal: Normal Bowel Sounds, Soft Skin: Other (chronic venous stasis dermatitis changes and lymphedema of both legs) Neurologic/Psychiatric: Alert, Disoriented, Other (unable to answer any questions clearly other than her name, is tearful) Copy Copies To 1: Ria Ruiz APRN Clinical Quality Measures DVT/VTE Risk/Contraindication: Risk Factor Score Per Nursin RFS Level Per Nursing on Admit: 4+=Very High SYDNIE ROBISON MD Aug 01, 2020 14:32
[2020-08-01 16:06] VITALS: BP 114/57
[2020-08-01 16:40] VITALS: BP 114/57
== END 2020-08-01 16:40 | disposition hospice, home (50) | DRG 871 ==
LOC: EDUNIT# 07:59 → ER 08:01 → ICU 12:25 → 4TH 07-27 04:52
PROVIDERS: ADMIT Internal Medicine; ATTEND Family Medicine
PROC: 02HV33Z Insertion of Infusion Device into Superior Vena Cava, Percutaneous Approach (ICD-10-PCS; principal; 2020-07-25)
DX: A41.9 Sepsis, unspecified organism (principal); J18.9 Pneumonia, unspecified organism; J44.0 Chronic obstructive pulmonary disease with (acute) lower respiratory infection; N39.0 Urinary tract infection, site not specified; N17.9 Acute kidney failure, unspecified; E66.2 Morbid (severe) obesity with alveolar hypoventilation; Z68.42 Body mass index [BMI] 45.0-49.9, adult; J81.1 Chronic pulmonary edema; Z20.822 Contact with and (suspected) exposure to COVID-19; Z88.0 Allergy status to penicillin; E78.00 Pure hypercholesterolemia, unspecified; E11.9 Type 2 diabetes mellitus without complications; E86.1 Hypovolemia; R19.7 Diarrhea, unspecified; E87.6 Hypokalemia; R09.02 Hypoxemia; I12.9 Hypertensive chronic kidney disease with stage 1 through stage 4 chronic kidney disease, or unspecified chronic kidney disease; N18.9 Chronic kidney disease, unspecified; Z66 Do not resuscitate; I48.91 Unspecified atrial fibrillation; I95.9 Hypotension, unspecified; I89.0 Lymphedema, not elsewhere classified; D64.9 Anemia, unspecified
CPT/HCPCS: 36415; 71045; 74176; 80048; 80053; 81000; 83605; 83615; 83735; 83880; 84100; 84145; 85007; 85025; 85027; 85379; 85610; 85730; 86141; 87040; 87077; 87088; 87186; 87324; 87449; 87635; 87804; 93306; 94760; 96361; 96365; 96366